=== PATIENT | male | born 1965 ===

== ENCOUNTER 2020-03-29 17:01 | Outpatient (REF) | payer OTHER, SELFPAY ==
[2020-03-29 18:37] LABS: Cholesterol 218 mg/dL; HDL Cholesterol 51 mg/dL; LDL Cholesterol Calculated 146 mg/dl; Triglycerides 108 mg/dL
== END 2020-03-29 17:02 | disposition home or self-care (01) ==
LOC: HO.LAB 17:01
PROVIDERS: PCP Family Medicine; Visit Provider Family Medicine
DX: E78.00 Pure hypercholesterolemia, unspecified (principal)
CPT/HCPCS: 80061

== ENCOUNTER 2020-05-09 07:20 | Day surgery (SDC) | payer OTHER, SELFPAY ==
[2020-05-03 12:24] VITALS: BMI 34.2
--- NOTE | 2020-05-05 15:48 | HO.ANESPROP2 ---
Documented by User: Ai Conleyney 05/05/20 15:50 HPI - Anesthesia Eval Consult details Narrative: 55yo M for Colonoscopy [facility] Past Medical History Medical History Elevated cholesterol Loud snoring Murmur Surgical History Surgical History History of third molar tooth extraction Hx of colonoscopy Social History Social History Smoking Status: Never smoker Use of substances other than those prescribed or required for medical reasons: No Advance Directives: No Advance Directives Information Provided: No Advance Directives on File: No Meds Allergies Allergy/AdvReac Type Severity Reaction Status Date / Time No Known Allergies Allergy Verified 05/09/20 08:06 Exam Exam Date and Time: May 05, 2020 1548 Height,Weight and Vital Signs: Height 5 ft 6 in Weight 96.162 kg Assessment and Plan Assessment Anesthesia Assessment: Chart Reviewed Documented by User: Morro Rudolph MD 05/09/20 08:11 [facility] Past Medical History Medical History Elevated cholesterol Loud snoring Murmur Surgical History Surgical History History of third molar tooth extraction Hx of colonoscopy Social History Social History Smoking Status: Never smoker Use of substances other than those prescribed or required for medical reasons: No Advance Directives: No Advance Directives Information Provided: No Advance Directives on File: No Meds Allergies Allergy/AdvReac Type Severity Reaction Status Date / Time No Known Allergies Allergy Verified 05/09/20 08:06 Exam Airway Mallampati Class: III TM Dist: >3cm Neck ROM: Full Loose/Missing/Broken Teeth: No Heart: rrr, LBBB Lungs: nl Other: ao Assessment and Plan Assessment Anesthesia Assessment: Anesthesia Plan Discussed, PAT Visit and Chart Reviewed (Rhythm strip shows ?new Lbbb, no prior comparison, mets>4, denies CP/SOB, recommend PCP followup with EKG) Final Anesthetic Review NPO: Yes ASA Class: II Final Preanesthetic Review: No Changes in Pt Med Stat, Meds/Allgs Chart Reviewed, Consent Obtained/Reviewed and Anes Risks/Benef Reviewed Patient Risk: Low Procedure Risk: Low Anesthetic Plan Anesthetic Plan: MAC: Disposition: Standard PACU
[2020-05-06 12:09] VITALS: BMI 34.2
[2020-05-09 07:44] VITALS: BMI 34.2
[2020-05-09 07:47] VITALS: BP 137/77; PULSE 66; RESP 16; TEMP 36.5; O2SAT 96
[2020-05-09] MEDS: Lactated Ringers 1,000 ML 100 ML IVCONT (08:00)
--- NOTE | 2020-05-09 08:50 | MHC.SHP ---
Pre-Procedural Eval Section B Chief Complaint: Screening Details of Present Illness: FH of cRC in father 60's Relevant Family History (Specify if Yes): Yes Relevant Social History: None Present Medications: see Short Stay Collaborative assessment Medical History: Significant History (high cholesterol, murmur) History of Previous Operations: No relevant previous surgery Allergies: Allergies Allergy/AdvReac Type Severity Reaction Status Date / Time No Known Allergies Allergy Verified 05/09/20 08:06 Review of Systems Sugical H&P ROS: Negative: Constitution, Cardiovascular, Respiratory, Neurological, Psychiatric, Hem-Onc, Allergic/Immunologic, Gastrointestinal, Genitourinary, Musculoskeletal, Integumentary, Endocrine and Eyes/Ears/Nose/Throat Exam Surgical H&P Exam: Normal: HEENT, Normal: Heart, Normal: Lungs, Normal: Extremities, Normal: Abdomen, Normal: Skin and Normal: Neurological Plan Diagnosis/Plan: Unchanged Patient has been examined and remains a candidate for the planned procedure
--- NOTE | 2020-05-09 08:51 | P.OP_ITS ---
Operative Note Operative Note Date of Service: 05/09/20 Narrative: Operative Information Procedure Description: Colonoscopy COLONOSCOPY Instrument: Olympus variable stiffness pediatric scope 190L Colonoscopy Monitoring: Vital signs and clinical assessment, continuous EKG monitoring, Pulse oximetry, Carbon Dioxide monitoring and blood pressure monitoring were done throughout the procedure. Colon withdrawal time was 10 minutes. Procedure: The patient was placed in the left lateral decubitis position and pre-procedure medications were administered. After a digital rectal examination of the ano-rectum, the video colonoscope was inserted into the rectum and advanced through the colon to the cecum/TI. The colonoscope was slowly withdrawn in a retrograde panoramic fashion and the colon mucosa was carefully examined including a retroflexed view of the rectum. Findings and interventions are described below. Procedure Difficulty: Findings: scattered small diverticula shivam in the sigmoid but noted in right colon and transverse Terminal Ileum-normal Cecum:normal Ascending Colon: normal Transverse Colon -normal Descending Colon:normal Sigmoid Colon: normal Rectum: Retroflexion with small internal hemorrhoids, grade I with skin tags seen Anorectum - normal Colon preparation: [place] Bowel Preparation Scale Right colon; 2 Transverse colon: 3 Left colon; 3 (0 = Unprepared colon segment with mucosa not seen due to solid stool that cannot be cleared. 1 = Portion of mucosa of the colon segment seen, but other areas of the colon segment not well seen due to staining, residual stool and/or opaque liquid. 2 = Minor amount of residual staining, small fragments of stool and/or opaque liquid, but mucosa of colon segment seen well. 3 = Entire mucosa of colon segment seen well with no residual staining, small fragments of stool or opaque liquid) Impression and Post Procedure Diagnosis: diverticular disease internal hemorrhoids Plan: High fiber diet leaflet Avoid straining at stool, epsom salts and sitz bath prn, anusol supps or cream Repeat Colonoscopy in 5 years (due to FH of CRC) or earlier if clinically indicated Above findings were reviewed with the patient and relevant handouts were provided if indicated.
--- NOTE | 2020-05-09 08:51 | PM.OP ---
Brief Operative Note Date of Service: 05/09/20 Post-op diagnosis: same Procedure: see op note Surgeon: Antonette Lakhani MD Anesthesia: MAC Estimated blood loss (mL): 0 Condition: stable Disposition: PACU
[2020-05-09 09:15] VITALS: BP 104/63; PULSE 70; RESP 16; TEMP 36.1; O2SAT 97
[2020-05-09 09:30] VITALS: BP 111/59; PULSE 62; RESP 12; O2SAT 94
[2020-05-09 09:39] VITALS: BP 120/79; PULSE 68; RESP 18; TEMP 36.1; O2SAT 97
--- NOTE | 2020-05-09 10:06 | HO.POSTANES ---
Post Anesthesia Evaluation Post Anesthesia Evaluation Vital Signs: Vital Signs Temp Pulse Resp BP Pulse Ox 05/09/20 09:39 96.9 F 68 18 120/79 97 05/09/20 09:30 62 12 111/59 L 94 05/09/20 09:15 96.9 F 70 16 104/63 97 05/09/20 07:47 97.7 F 66 16 137/77 96 Anesthesia: Monitored Mental Status: Awake Pain Control: Satisfactory Nausea/Vomiting: None Hydration: Adequate Anesthesia-Related Issues: No Anes. Related Issues
== END 2020-05-09 10:15 | disposition home or self-care (01) ==
PROVIDERS: PCP Family Medicine; Visit Provider Internal Medicine Gastroenterology
PROC: 0DJD8ZZ Inspection of Lower Intestinal Tract, Via Natural or Artificial Opening Endoscopic (ICD-10-PCS; CPT 45378; principal; 2020-05-09 08:30)
DX: Z12.11 Encounter for screening for malignant neoplasm of colon (principal); K57.30 Diverticulosis of large intestine without perforation or abscess without bleeding; K64.0 First degree hemorrhoids; Z80.0 Family history of malignant neoplasm of digestive organs
CPT/HCPCS: 45378

== ENCOUNTER → 2020-06-01 15:03 | Outpatient (BNVA) | payer OTHER, SELFPAY | PROVIDERS: PCP Family Medicine; Visit Provider Internal Medicine Gastroenterology | DX: Z76.89 Persons encountering health services in other specified circumstances (principal) ==

== ENCOUNTER → 2020-07-18 08:10 | Outpatient (REF) | payer OTHER, SELFPAY ==
--- NOTE | 2020-07-18 08:14 | CA_ITS ---
Acquisition Time: 2020-07-18 09:31:38 Total Exercise Time: 00:05:48 Test Indications: Abnormal ECG Medications: SEE CHART Protocol: SHANA Max HR: 126 BPM 77% of Pred: 163 BPM Max BP: 164/070 mmHG Max Work Load: 7.0 METS Exercise stress test with exercise 5 min 48 sec of Shana protocol, with report of moderate shortness of breath and a strange feeling in his upper chest and under his tongue, with isolated PVCs and ventricular cuplets, with normotensive response to exercise, with nondiagnostic EKG for ischemia due to suboptimal heart rate, achieving 76% MPHR. In recovery his symptoms resolved. Test reviewed with Dr Quiroz. Message sent to Dr Guzman with results and recommendation for pharm nuclear stress test. Referred By: George Guzman Overread By: MACK PAGE
[2020-07-18 10:06] LABS: Cholesterol 144 mg/dL; HDL Cholesterol 48 mg/dL; LDL Cholesterol Calculated 82 mg/dl; Triglycerides 74 mg/dL
== END ==
LOC: HO.CARD 08:10
PROVIDERS: PCP Family Medicine; Visit Provider Family Medicine
DX: R03.0 Elevated blood-pressure reading, without diagnosis of hypertension (principal); R94.31 Abnormal electrocardiogram [ECG] [EKG]; E78.00 Pure hypercholesterolemia, unspecified
CPT/HCPCS: 36415; 80061; 93017

== ENCOUNTER → 2020-07-28 13:40 | Outpatient (BNVA) | payer OTHER, SELFPAY | PROVIDERS: PCP Family Medicine; Visit Provider Internal Medicine ==

== ENCOUNTER → 2020-09-06 08:31 | Outpatient (REF) | payer OTHER, SELFPAY ==
--- NOTE | ~2020-09-06 | NM_ITS ---
Myocardial perfusion study Indication: Abnormal EKG to evaluate for myocardial ischemia Technique: The patient was brought in for a Lexiscan perfusion study on 09/06/2020. Patient performed low-level exercise and was injected 0.4 mg of Lexiscan intravenously. Within a minute of injection, 35 mCi of sestamibi was given intravenously. Images were obtained using the SPECT gamma camera interlaced with the gating device. Images were obtained in supine position. Resting perfusion study was performed on 09/07/2020. Patient was administered 35 mCi of sestamibi intravenously at rest. Images were then obtained in supine position. Images obtained with and without CT attenuation. Total DLP 88 mGy-cm. Images were processed with the software and compared side to side in short axis, horizontal long axis and vertical long axis views. Findings: The stress perfusion study showed non attenuated images show normal uptake of tracer in all segments of LV myocardium. Attenuation corrected images show mildly reduced uptake in the apex of the LV myocardium. The gated study shows normal LV systolic function with calculated LVEF of 71%. LV cavity is normal in size. The gated study shows normal systolic wall thickening and contraction of segments. Resting study shows no change in perfusion in compared to stress perfusion study. Gating at rest reveals normal cyst colic wall motion with ejection fraction at 59%. The findings are consistent with normal perfusion. NM/NM cardiolite stress test Impression: 1. Myocardial perfusion imaging study shows normal myocardial perfusion 2. Gated LVEF is 71% 3. Transient ischemic dilatation not present EKG is nondiagnostic for ischemia
--- NOTE | 2020-09-06 08:34 | CA_ITS ---
Acquisition Time: 2020-09-06 09:24:29 Total Exercise Time: 00:02:00 Test Indications: Abn.Results of other cardiovascu Medications: Protocol: LEXISCAN Max HR: 104 BPM 63% of Pred: 163 BPM Max BP: 136/078 mmHG Max Work Load: 1.6 METS Pharmacological stress test using Lexiscan while walking for 2 minutes at 1mph. Pt tolerated well, denies any anginal sx. EKG with incomplete RBBB, no arrhythmias. Non-diagnostic for ischemia. Nuclear images to follow. Normotensive response to test. Test reviewed with Dr. Olmstead. Referred By: José Luis Olmstead Overread By: Jerri Puente NP
--- NOTE | 2020-09-06 08:34 | CA_ITS ---
Transthoracic Echocardiogram Patient (Last, First, Middle): Kaushik Luis, Gender: Male Date of : 1965 Age: 55 Procedure Date: 09/06/2020 Procedure Type: Transthoracic Echocardiogram Location: OP Height: 167.64 cm Weight: 95.26 kg BSA: 2.04 m2 Heart Rate: bpm BP: 122 / 78 mmHg Welt Slasher: CAROL Referring MD: José Luis Olmstead MD Symptoms: R06.02 - Shortness of breath Study Quality: Fair ECG Rhythm: Sinus Conclusions: - The left ventricular systolic function is normal. The visually estimated ejection fraction is between 60-65%. - No obvious valvular pathology seen on this study. Findings Left Ventricle Normal left ventricular cavity size. There is mildly increased left ventricular wall thickness. The left ventricular systolic function is normal. The visually estimated ejection fraction is between 60-65%. There is no evidence of regional wall motion abnormalities. Diastolic function is normal for age. Right Ventricle Normal right ventricular cavity size and systolic function. Atria The left atrium is normal in size. The right atrium is normal in size. Aortic Valve There is a normal trileaflet aortic valve. There is no aortic valve stenosis. There is no aortic valve regurgitation. Mitral Valve The mitral valve appears normal. There is trace mitral valve regurgitation. There is no mitral valve stenosis. Pulmonic Valve The pulmonic valve was not well visualized. There is trace pulmonic valve regurgitation. Tricuspid Valve Normal tricuspid valve structure. There is trace tricuspid valve regurgitation. The pulmonary artery systolic pressure is normal. Great Vessels The aortic annulus, sinuses of valsalva, asc aorta, and aortic arch are normal in size. Venous The inferior vena cava is normal in size and collapses greater than 50% with inspiration. Pericardium/Pleural There is no evidence of pericardial effusion. Prior Study Comparison No prior study available for comparison. Recommendations, Care & Conclusions No obvious valvular pathology seen on this study. Measurements 2D Linear Measurements IVSd: 1.06 0.6-0.9/0.6-1.0 cm LVIDd: 4.57 3.9-5.3/4.2-5.9 cm LVIDd Index: 2.24 2.4-3.2/2.2-3.1 cm/m2 LVIDs: 3.16 2.0-3.6 cm LVPWd: 1.02 0.7-1.1 cm Ao Root: 2.60 2.1-3.5 cm LA Diam: 3.20 2.7-3.8/3.0-4.0 cm LAIDs Index: 1.57 1.5-2.3 cm/m2 LV Mass: 206.58 67-162/88-224 g LV Mass Index: 101.27 43-95/49-115 g/m2 LVOT Diam: 2.10 3.0+(-)1.3 cm 2D Systolic Function EF 4C: 57.60 >55% EF 2C: 61.50 >55% EF BiP: 60.70 >55% Mitral Valve MV Pk E: 0.57 MV PK A: 0.49 MV Decel Time: 237.00 E/A: 1.20 E'Lateral: 13.10 E'Medial: 9.57 E/E' Med: 5.90 E/E' Lat: 4.30 PHT: 70.00 MVA PHT: 3.14 Decel [place]: 2.40 Aortic Valve AoV Pk Armando: 1.48 AoV Pk Grad: 9.00 LVOT LVOT Pk Armando: 1.20 LVOT Mn Armando: 0.77 LVOT VTI: 0.26 LVOT Pk Grad: 6.00 LVOT Mn Grad: 3.00 LVOT Diam: 2.10 LVOT Area: 3.46 Diastolic Function MV Pk E: 0.57 MV Pk A: 0.49 E/A: 1.20 E'Medial: 9.57 E/E' Med: 5.90 E' Laterial: 13.10 E/E' Lat: 4.30 Tricuspid Valve TR Pk Armando: 2.34 TR Pk Grad: 22.00 RA Press: 3.00 RVSP: 25.00 Great Vessels Aorta Ao Root-2D: 2.60 2.0-3.7 cm Ao Asc: 3.50 2.1-3.4 cm Ao Arch: 2.90 Updated in Other Vendor System with Status of Final José Luis Olmstead MD electronically signed on 09/06/2020 12:42:17 PM with status of Final
== END ==
LOC: HO.CARD 08:31
PROVIDERS: Visit Provider Internal Medicine
DX: R06.02 Shortness of breath (principal); I49.9 Cardiac arrhythmia, unspecified; R94.39 Abnormal result of other cardiovascular function study; R94.31 Abnormal electrocardiogram [ECG] [EKG]; G47.33 Obstructive sleep apnea (adult) (pediatric)
CPT/HCPCS: 78452; 93017; 93306; A9500; J0280; J2785

== ENCOUNTER → 2020-09-06 11:18 | Outpatient (REF) | payer OTHER, SELFPAY | LOC: HO.SL 11:18 | PROVIDERS: PCP Family Medicine; Visit Provider Internal Medicine | DX: G47.33 Obstructive sleep apnea (adult) (pediatric) (principal) | CPT/HCPCS: 95806 ==

== ENCOUNTER → 2020-09-26 14:44 | Outpatient (BNVA) | payer OTHER, SELFPAY | PROVIDERS: PCP Family Medicine; Visit Provider Internal Medicine ==

== ENCOUNTER → 2020-11-02 09:47 | Outpatient (BNVA) | payer OTHER, SELFPAY | PROVIDERS: PCP Family Medicine; Visit Provider Internal Medicine ==

== ENCOUNTER → 2020-12-13 15:34 | Outpatient (BNVA) | payer OTHER, SELFPAY | PROVIDERS: PCP Family Medicine; Visit Provider Internal Medicine ==

== ENCOUNTER → 2021-03-22 15:38 | Outpatient (BNVA) | payer OTHER, SELFPAY | PROVIDERS: PCP Family Medicine; Visit Provider Internal Medicine ==

== ENCOUNTER 2021-03-31 08:18 | Emergency (ER) | payer OTHER, SELFPAY ==
--- NOTE | ~2021-03-31 | XR_ITS ---
EXAMINATION: XR CHEST CLINICAL INFORMATION: Syncope. COMPARISON: None TECHNIQUE: Frontal view of the chest was obtained. FINDINGS: The lungs are clear. The cardiomediastinal silhouette is normal in size. There is no pleural effusion or pneumothorax. No acute osseous abnormality. XR/XR chest 1V IMPRESSION: No acute cardiopulmonary findings.
--- NOTE | ~2021-03-31 | CT_ITS ---
EXAMINATION: CT BRAIN AND CT CERVICAL SPINE WITHOUT CONTRAST. CLINICAL INFORMATION: Dizziness and syncope x 3 weeks. COMPARISON: None TECHNIQUE: 5 mm thin axial and reformatted 2 mm thin sagittal coronal images of brain were obtained without contrast. Axial 3 mm thin and reformatted 2 mm thin sagittal coronal images of cervical spine were obtained without contrast. DLP 1455 FINDINGS: BRAIN: There is no acute intra-axial, extra-axial bleed, masses, collection or midline shift. No acute infarction in evolution. There is no edema. The lateral ventricles are symmetrical in size and configuration without enlargement. Bone windows reveal no calvarial abnormality. The paranasal sinuses and mastoid air cells are well-aerated. CERVICAL SPINE: There is normal cervical lordosis. The vertebral heights, alignment and disc heights are normal. No visible acute fracture, dislocation or lytic process seen. The craniovertebral junction and the C1-C2 alignment is normal. The prevertebral and paravertebral soft tissues are normal. The lung apices are clear. CT/CT cervical spine wo con IMPRESSION: Unremarkable CT brain exam. Unremarkable CT cervical spine without contrast.
--- NOTE | ~2021-03-31 | CT_ITS ---
EXAMINATION: CT BRAIN AND CT CERVICAL SPINE WITHOUT CONTRAST. CLINICAL INFORMATION: Dizziness and syncope x 3 weeks. COMPARISON: None TECHNIQUE: 5 mm thin axial and reformatted 2 mm thin sagittal coronal images of brain were obtained without contrast. Axial 3 mm thin and reformatted 2 mm thin sagittal coronal images of cervical spine were obtained without contrast. DLP 1455 FINDINGS: BRAIN: There is no acute intra-axial, extra-axial bleed, masses, collection or midline shift. No acute infarction in evolution. There is no edema. The lateral ventricles are symmetrical in size and configuration without enlargement. Bone windows reveal no calvarial abnormality. The paranasal sinuses and mastoid air cells are well-aerated. CERVICAL SPINE: There is normal cervical lordosis. The vertebral heights, alignment and disc heights are normal. No visible acute fracture, dislocation or lytic process seen. The craniovertebral junction and the C1-C2 alignment is normal. The prevertebral and paravertebral soft tissues are normal. The lung apices are clear. CT/CT head/brain wo con IMPRESSION: Unremarkable CT brain exam. Unremarkable CT cervical spine without contrast.
--- NOTE | 2021-03-31 08:27 | ECG_ITS ---
Test Reason : SYNCOPE Blood Pressure : / mmHG Vent. Rate : 067 BPM Atrial Rate : 067 BPM P-R Int : 204 ms QRS Dur : 118 ms QT Int : 382 ms P-R-T Axes : 034 -49 040 degrees QTc Int : 403 ms Normal sinus rhythm with sinus arrhythmia Left anterior fascicular block RSR' or QR pattern in V1 suggests right ventricular conduction delay Intra-ventricular conduction delay Abnormal ECG No previous ECGs available Referred By: Generic ED Physician Electronically Signed By:HOLDEN MCDONALD MD
[2021-03-31 09:12] VITALS: BP 140/78; PULSE 63; RESP 20; TEMP 36.5; O2SAT 98; BMI 35.5
[2021-03-31 09:17] LABS: MANUAL DIFF FLAG NO
[2021-03-31 09:18] LABS: Basophils Percent Auto 0.3 % (0-2); Eosinophils Percent Auto 0.4 % (0-4); Hematocrit 47.1 % (42-52); Hemoglobin 15.6 g/dl (14.0-18.0); Imm Gran Abs Auto 0.03 X10*3/uL (0.00-0.03); Imm Gran Pct Auto 0.4 % (0.0-0.4); Lymphocytes Absolute Auto 1.7 X10*3/uL (1.2-4.9); Lymphocytes Percent Auto 23.7 % (20-40); Mean Corpuscular HGB Conc 33.1 g/dl (31.0-36.0); Mean Corpuscular Hemoglobin 30.7 pg (27.0-33.0); Mean Corpuscular Volume 92.7 fL (80-98); Mean Platelet Volume 9.3 fL (9.4-12.4); Monocytes Absolute Auto 0.6 X10*3/uL (0.1-1.2); Monocytes Percent Auto 8.6 % (2-11); Neutrophils Absolute Auto 4.9 X10*3/uL (2.0-8.3); Neutrophils Percent Auto 66.6 % (45-73); Platelet Count 320 X10*3/uL (160-400); Red Blood Count 5.08 X10*6/uL (4.60-5.80); Red Cell Distribution Width 13.2 % (11.0-16.0); White Blood Count 7.3 X10*3/uL (4.8-10.8)
[2021-03-31 09:33] LABS: Anion Gap 10 (12-20); Blood Urea Nitrogen 21 mg/dL (9-16); Calcium 10.3 mg/dL (8.4-10.2); Carbon Dioxide 29 mmol/L (22-29); Chloride 107 mmol/L (96-108); Creatinine Clr Calc Pharmacy 77.4; Estimated Glomerular Filt Rate > 60; Glucose Random 97 mg/dL (60-115); Potassium 5.2 mmol/L (3.3-5.1); Sodium 141 mmol/L (135-145)
--- NOTE | 2021-03-31 09:34 | ED_ITS ---
HPI - Syncope General Chief Complaint: Syncope Stated Complaint: passed out Time Seen by Provider: 03/31/21 08:56 Source: patient Mode of arrival: ambulatory Limitations: no limitations History of Present Illness HPI narrative: 56 y/o male with history of obesity, hx ROSALINDA on CPAP, HTN, HLD who presents to the ER with 3 separate episodes of lightheadedness and passing out this morning, all within 15-20 minutes of one another. Patient reports at 06:30 this morning about 1 hour after waking up he was brushing his teeth when all the sudden he started to feel lightheaded and unwell. He slowly lowered himself to the ground and next thing he knows he woke up on the bathroom floor. He felt better when he woke up see went to the kitchen and shortly after this same episode happened again, he felt lightheaded lowered himself to the ground and he reports next things he remembers is waking up on the kitchen floor. A 3rd episode happened in the bedroom. All 3 episodes he feels like he was lightheaded he lowered himself to the ground and did not fall. He did not hit his head. He does not know how long he lost consciousness for but thinks it was brief. He has no associated shortness of breath or chest pain. He feels that his baseline now. He has no dizziness. This has never happened to him before. MD complaint: loss of consciousness and felt faint Onset (ago): hour(s) (4) -: second(s) Prodromal symptoms: lightheaded Witnessed: No Injuries sustained associated with event: none Current symptoms: back to baseline Treatments prior to arrival: none Related Data Home Medications Medication Instructions Recorded Confirmed naproxen sodium 220 mg tablet 220 mg PO Q12H PRN 03/31/21 03/31/21 (Aleve) Previous Rx's Medication Instructions Recorded atorvastatin 20 mg tablet 20 mg PO DAILY 90 Days #90 tab 04/14/20 Allergies Allergy/AdvReac Type Severity Reaction Status Date / Time No Known Allergies Allergy Verified 03/22/21 15:48 Review of Systems Review of Systems: Constitutional: No Fever, No Chills ENT/Mouth: No sore throat, No Rhinorrhea, No Swallowing Difficulty Eyes: No Eye Pain, No Swelling, No Redness, No vision changes Cardiovascular: No Chest Pain, No SOB, No Orthopnea, No Edema Respiratory: No Cough, No Sputum, No Wheezing, No dyspnea Gastrointestinal: + Nausea (transient, now gone), No Vomiting, No Diarrhea, No abdominal Pain Genitourinary: No Dysuria, No Urinary Frequency, No Hematuria Musculoskeletal: No joint pain, No Myalgias Skin: No Skin Lesions, No rash Neuro: No Weakness, No Numbness, + Dizziness, No Headache Psych:+ Anxiety/Panic, No Depression Heme/Lymph: No Bruising, No Lymphadenopathy PMFSH Past Medical History Medical History Elevated cholesterol Loud snoring Murmur Obesity (BMI 30-39.9) ROSALINDA (obstructive sleep apnea) Surgical History History of third molar tooth extraction Hx of colonoscopy Family History Family History Father No problems noted. Mother No problems noted. Brother No problems noted. Brother No problems noted. Daughter No problems noted. Sister No problems noted. Sister No problems noted. Sister No problems noted. Social History Social History Alcohol intake: current Alcohol intake frequency: holidays/special occasions only Advance Directives: No Advance Directives Information Provided: No Advance Directives on File: No Physical Exam Vital Signs: Vital Signs: Last Vital Signs Temp 98.8 F 03/31/21 10:06 Pulse 62 03/31/21 10:06 Resp 16 03/31/21 10:06 BP 139/83 03/31/21 10:06 Pulse Ox 99 03/31/21 10:06 Body Mass Index 35.5 Appearance: Alert. Oriented X3. No acute distress. Eyes: Pupils equal, round and reactive to light. EOMI no nystagmus ENT: Pharynx normal. Neck: Normal inspection. Neck supple. No cervical spinal tenderness. CVS: Normal heart rate and rhythm. Pulses normal. Respiratory: No respiratory distress. Breath sounds normal. Abdomen: Soft and nontender. +BS x4 Skin: Skin warm and dry. Normal skin color. Normal skin turgor. No rashes. Extremities: No lower extremity edema. Atraumatic x4 Neuro: Oriented X 3. No motor deficit. No sensory deficit. Ambulates with steady gait, non-focal. Course Course Course Narrative: 56-year-old male presents to the ER with 3 episodes of feeling lightheaded and dizzy this morning in which he lowered himself to the ground and briefly lost consciousness during all 3 episodes. He is hemodynamically stable on arrival with a nonfocal neuro exam. He reports no injuries, no headache, chest pain, shortness of breath. It does not sound like he was postictal or had any urinary incontinence or tongue biting, doubt seizures. Will get EKG, basic lab workup, CT head. He had an echocardiogram done an August of 2020 which was unremarkable with EF 60-65% normal diastolic function and no valvular pathology. Reevaluation(s) Reevaluation #1: Orthostatic vital signs are negative. Labs show mild elevation in potassium and calcium and mildly elevated BUN consistent with mild dehydration. IV fluids were ordered. CT head is still pending. Reevaluation #2: CT head is unremarkable. Troponin mildly elevated at 7 will get repeat in addition will get D-dimer to rule out PE given his recurrent syncope. This is less likely given he has no shortness of breath or chest pain and he is not tachycardic. Reevaluation #3: D-dimer is negative troponin increased slightly to 9 but is not clinically significant for cardiac ischemia. Given his recurrent syncope this morning and risk factors will plan on admission to the hospital for observation. Case was discussed with Dr. Younger who agrees with admission for further monitoring and workup. Patient agreeable to admission and updated on plan of care. MDM - Syncope Differential Diagnosis Differential diagnosis: Likely syncope due to orthostatic hypotension, vasovagal syncope, complete atrioventricular block, subarachnoid hemorrhage, pulmonary embolism and dehydration Medical Records Attestation: I reviewed the patient's medical records. Lab Data Attestation: I reviewed the patient's lab results. Result diagrams: 03/31/21 08:55 03/31/21 08:55 Labs: Lab Results 03/31/21 03/31/21 03/31/21 Range/Units 08:55 08:55 08:55 WBC 7.3 (4.8-10.8) X10*3/uL RBC 5.08 (4.60-5.80) X10*6/uL Hgb 15.6 (14.0-18.0) g/dl Hct 47.1 (42-52) % MCV 92.7 (80-98) fL MCH 30.7 (27.0-33.0) pg MCHC 33.1 (31.0-36.0) g/dl RDW 13.2 (11.0-16.0) % Plt Count 320 (160-400) X10*3/uL MPV 9.3 L (9.4-12.4) fL Immature Gran % (Auto) 0.4 (0.0-0.4) % Neut % (Auto) 66.6 (45-73) % Lymph % (Auto) 23.7 (20-40) % [place] % (Auto) 8.6 (2-11) % Eos % (Auto) 0.4 (0-4) % Baso % (Auto) 0.3 (0-2) % Lymph # (Auto) 1.7 (1.2-4.9) X10*3/uL [place] # (Auto) 0.6 (0.1-1.2) X10*3/uL Eos # (Auto) 0.0 (0.0-0.4) X10*3/uL Baso # (Auto) 0.0 (0.0-0.2) X10*3/uL Abs Immat Gran (auto) 0.03 (0.00-0.03) X10*3/uL Absolute Neuts (auto) 4.9 (2.0-8.3) X10*3/uL Absolute Nucleated RBC 0.000 (0.0-0.012) X10*3/uL Nucleated RBC % (auto) 0.0 (0.0-0.2) /100WBC D-Dimer NG/ML Sodium 141 (135-145) mmol/L Potassium 5.2 H (3.3-5.1) mmol/L Chloride 107 (96-108) mmol/L Carbon Dioxide 29 (22-29) mmol/L Anion Gap 10 L (12-20) BUN 21 H (9-16) mg/dL Creatinine 1.15 (0.5-1.4) mg/dL Estim Creat Clear Calc 77.4 Estimated GFR > 60 Random Glucose 97 (60-115) mg/dL Calcium 10.3 H (8.4-10.2) mg/dL Troponin I High Sens 7.8 (<3.5-35.0) ng/L 03/31/21 03/31/21 Range/Units 14:11 14:11 WBC (4.8-10.8) X10*3/uL RBC (4.60-5.80) X10*6/uL Hgb (14.0-18.0) g/dl Hct (42-52) % MCV (80-98) fL MCH (27.0-33.0) pg MCHC (31.0-36.0) g/dl RDW (11.0-16.0) % Plt Count (160-400) X10*3/uL MPV (9.4-12.4) fL Immature Gran % (Auto) (0.0-0.4) % Neut % (Auto) (45-73) % Lymph % (Auto) (20-40) % [place] % (Auto) (2-11) % Eos % (Auto) (0-4) % Baso % (Auto) (0-2) % Lymph # (Auto) (1.2-4.9) X10*3/uL [place] # (Auto) (0.1-1.2) X10*3/uL Eos # (Auto) (0.0-0.4) X10*3/uL Baso # (Auto) (0.0-0.2) X10*3/uL Abs Immat Gran (auto) (0.00-0.03) X10*3/uL Absolute Neuts (auto) (2.0-8.3) X10*3/uL Absolute Nucleated RBC (0.0-0.012) X10*3/uL Nucleated RBC % (auto) (0.0-0.2) /100WBC D-Dimer < 200 NG/ML Sodium (135-145) mmol/L Potassium (3.3-5.1) mmol/L Chloride (96-108) mmol/L Carbon Dioxide (22-29) mmol/L Anion Gap (12-20) BUN (9-16) mg/dL Creatinine (0.5-1.4) mg/dL Estim Creat Clear Calc Estimated GFR Random Glucose (60-115) mg/dL Calcium (8.4-10.2) mg/dL Troponin I High Sens 9.1 (<3.5-35.0) ng/L ECG Data Attestation: I personally reviewed and interpreted this ECG as follows: ECG interpretation date: 03/31/21 ECG interpretation time: 11:44 Prior ECG tracings: available for review Interpretation: normal sinus rhythm with sinus arrythmia, HR 67 bpm, prolonged VA interval 203 ms, prolonged QRS 118 ms, Q-waves present in inferior leads - all findings were present on old EKG from Jul 2020 Critical Care Time Critical Care Time Critical Care Time: Yes Total Critical Care Time: 38 Attestation: I have personally provided critical care time exclusive of time spent on separately billable procedures. Time includes review of lab data, radiology results, discussion with consultants, and monitoring for potential decompensation. Intervention performed as documented. Discharge Plan Discharge Clinical Impression: Recurrent syncope Patient Disposition: Admitted As Inpatient Prescriptions: No Action naproxen sodium [Aleve] 220 mg Tablet 220 mg PO Q12H PRN (Reason: Pain) RF: 0 atorvastatin 20 mg tablet 20 mg PO DAILY 90 Days Qty: 90 RF: 3
[2021-03-31 09:39] LABS: Troponin-I High Sensitivity 7.8 ng/L (<3.5-35.0)
[2021-03-31 10:03] VITALS: BP 127/85; PULSE 60; PULSE 67
[2021-03-31 10:05] VITALS: BP 141/86; PULSE 58
[2021-03-31 10:06] VITALS: BP 139/83; PULSE 62; RESP 16; TEMP 37.1; O2SAT 99
[2021-03-31] MEDS: 0.9 % Sodium Chloride 1,000 ML 999 ML IVCONT (10:31)
--- NOTE | 2021-03-31 11:36 | PHA.MEDREC ---
Pharmacy Consult ? Medication Reconciliation Pharmacy has completed the medication reconciliation. Patient reports that he has a generic Viagra however he does know the name. There are no PDE-5 inhibitors on his claim history. Kyleigh Wing, BetzyD
[2021-03-31 14:27] LABS: D Dimer < 200 NG/ML
[2021-03-31 14:41] LABS: Troponin-I High Sensitivity 9.1 ng/L (<3.5-35.0)
--- NOTE | 2021-03-31 16:09 | PC.NURSE ---
Pt declining Calderon covid swab test. Pt states that he doesn't agree with those nose swabs, they have chemicals that shouldn't go in people's noses . Pt informed that the test is a foam swab that does not go far in the nostril and test was ordered as part of admission protocol. Pt stated do you know what they put on that foam, it contains the same chemical as antifreeze, it's dry until it goes in your nose .
== END 2021-03-31 17:32 | disposition left against medical advice (07) ==
PROVIDERS: Physician Assistant; Emergency Provider Emergency Medicine; PCP Family Medicine
DX: R55 Syncope and collapse (principal); R42 Dizziness and giddiness; R51.9 Headache, unspecified; M54.2 Cervicalgia; I10 Essential (primary) hypertension; Z79.899 Other long term (current) drug therapy
CPT/HCPCS: 36415; 70450; 71045; 72125; 80048; 84484; 85025; 85379; 93005; 96360; 99284; 99291

== ENCOUNTER 2021-06-24 09:46 | Outpatient (REF) | payer OTHER, SELFPAY ==
[2021-06-24 11:31] LABS: Anion Gap 10 (12-20); Blood Urea Nitrogen 19 mg/dL (9-16); Calcium 9.8 mg/dL (8.4-10.2); Carbon Dioxide 30 mmol/L (22-29); Chloride 107 mmol/L (96-108); Cholesterol 140 mg/dL; Estimated Glomerular Filt Rate > 60; Glucose Random 78 mg/dL (60-115); HDL Cholesterol 42 mg/dL; LDL Cholesterol Calculated 76 mg/dl; Potassium 4.6 mmol/L (3.3-5.1); Sodium 142 mmol/L (135-145); Triglycerides 111 mg/dL
[2021-06-24 11:53] LABS: Prostate Specific Antigen Scr 0.91 ng/mL (<0.05-4.0); TSH reflex Free T4 0.94 uIU/mL (0.32-4.0)
== END 2021-06-24 09:47 | disposition home or self-care (01) ==
LOC: HO.LAB 09:46
PROVIDERS: Visit Provider Family Medicine
DX: Z00.00 Encounter for general adult medical examination without abnormal findings (principal); E78.00 Pure hypercholesterolemia, unspecified; Z12.5 Encounter for screening for malignant neoplasm of prostate
CPT/HCPCS: 36415; 80048; 80061; 84153; 84443

== ENCOUNTER 2021-07-13 12:35 | Outpatient (REF) | payer OTHER, SELFPAY ==
--- NOTE | 2021-07-13 12:40 | HM_ITS ---
Total monitoring time 5 days and 2 hours. Underlying rhythm is sinus. Minimum heart rate 38/Min. Maximum 139/Min. Average 70/Min. No atrial fibrillation or flutter or AV blocks or pauses. Rare supraventricular ectopy with minimal burden. Extremely rare ventricular ectopy. No patient events. MTDD
--- NOTE | 2021-07-13 12:42 | EEG_ITS ---
Waking background activity consists of an 11 hertz posterior symmetrical alpha intermixed with low voltage fast frequencies anteriorly. Drowsiness is characterized by diffuse theta slowing. During sleep, symmetrical frontal central sleep spindles and vertex sharp transients developed over both hemispheres. No focal, lateralizing, or paroxysmal discharges seen. Arousals are frequent and unremarkable. The patient remains asymptomatic. IMPRESSION: This 24-hour ambulatory EEG is within normal limits. MD EMIL Workman/PARISH / [id number]
== END 2021-07-13 12:36 | disposition home or self-care (01) ==
LOC: HO.NEURO 12:35
PROVIDERS: Visit Provider Psychiatry & Neurology Neurology
DX: R55 Syncope and collapse (principal)
CPT/HCPCS: 93242; 95708; 95957

== ENCOUNTER 2022-06-13 14:21 | Observation (INO) | payer OTHER, SELFPAY ==
[2022-06-13] VITALS (7 sets, daily range): BP systolic 111–178; BP diastolic 65–87; PULSE 65–80; RESP 16; TEMP 36.3–36.7; O2SAT 95–98; BMI 34.7
--- NOTE | ~2022-06-13 | XR_ITS ---
EXAMINATION: XR CHEST CLINICAL INFORMATION: Shortness of breath COMPARISON: Chest x-ray 03/31/2021 TECHNIQUE: Frontal view of the chest was obtained. FINDINGS: The lungs are clear. No airspace consolidation, pleural effusion, or pneumothorax. The cardiomediastinal silhouette is within normal limits. No acute osseous injury. XR/XR chest 1V IMPRESSION: No acute pulmonary process.
--- NOTE | ~2022-06-13 | MR_ITS ---
EXAMINATION: MR BRAIN WITHOUT AND WITH CONTRAST CLINICAL INFORMATION: Syncope and dizziness. COMPARISON: CT angiogram of the head 06/13/2022. TECHNIQUE: Multiplanar MR imaging of the brain was performed without and with contrast. Total of 10 mL Gadavist was utilized for this examination. FINDINGS: Dedicated coronal oblique imaging through the temporal lobes reveals symmetric size, signal intensity, and morphological appearance of the hippocampal formations. No evidence of mesial temporal sclerosis. Scattered nonspecific foci of T2 FLAIR signal hyperintensity visualized within the periventricular white matter. No acute territorial infarct. No pathological magnetic susceptibility artifact. Intracranial vascular flow voids are maintained. Postcontrast images reveal no abnormal intracranial mass or enhancement. There is no intracranial mass effect midline shift. No abnormal extra-axial collection. Lateral and third ventricles are normal. No hydrocephalus. Midline structures including the cervicomedullary junction are normal. No acute bone marrow signal changes. There is no mastoid middle ear effusion. No active paranasal sinus disease. Globes and orbits are symmetric. MR/MR head/brain wo/w con IMPRESSION: There are scattered chronic small vessel ischemic changes within the periventricular white matter. Otherwise unremarkable examination. No evidence of acute territorial infarct or hemorrhage. No abnormal intracranial mass or enhancement.
--- NOTE | ~2022-06-13 | CT_ITS ---
EXAMINATION: CT HEAD WITHOUT CONTRAST CLINICAL INFORMATION: Dizziness COMPARISON: Head CT 03/31/2021 TECHNIQUE: Imaging was performed from the skull base to vertex without intravenous administration of contrast. This CT examination was performed using dose optimization techniques as appropriate, variously including the following: *Automated exposure control *Adjustment of mA and/or kV according to patient size (this includes techniques or standardized protocols for targeted exams where dose is matched to indication/reason for exam; i.e. extremities or head) *Use of iterative reconstruction technique Total exam dose length product: 725 mGy-cm FINDINGS: No intra or extra-axial fluid collection, hemorrhage, or mass. No ventriculomegaly. No midline shift or herniation. Basal cisterns are patent. Fang-white matter differentiation is maintained. No territorial encephalomalacia. No significant volume loss. There is no abnormal attenuation within the brain parenchyma. No calvarial fracture or soft tissue abnormality. The mastoid air cells and visualized portions of the paranasal sinuses are well aerated. CT/CT head/brain wo IV con IMPRESSION: 1. No acute intracranial pathology.
--- NOTE | ~2022-06-13 | CT_ITS ---
EXAMINATION: CT ANGIOGRAM HEAD CT ANGIOGRAM NECK CLINICAL INFORMATION: Syncope. Dizziness. COMPARISON: CT head from 06/05/2022. TECHNIQUE: Initial noncontrast marking stitcher imaging of the head and neck was performed. Comparison is made with noncontrast head CT from earlier today. Test bolus sequences followed by intravenous administration 70 mL of Omnipaque 350. Helical imaging was performed in the axial plane from the aortic arch to the skull vertex. Delayed postcontrast imaging of the head was also performed. The data was processed at the manufacturing technologist's workstation for generation of MIP sequences. Angled MIPs and volume rendered reformatted images were also generated at an offline 3D workstation. Stenoses are assessed in accordance with NASCET criteria unless otherwise indicated. This CT examination was performed using dose optimization techniques as appropriate, variously including the following: *Automated exposure control. *Adjustment of mA and/or kV according to patient size (this includes techniques or standardized protocols for targeted exams where dose is matched to indication/reason for exam; i.e. extremities or head). *Use of iterative reconstruction technique. DLP: 1544 mGy-cm FINDINGS: CT Head: There is no evidence of acute intracranial hemorrhage or edematous territorial infarction. A few foci of hypoattenuation in the periventricular and deep white matter are consistent with mild microangiopathy. Fang-white matter differentiation is preserved. Proportional prominence of the ventricles and sulcal spaces. No evidence for obstructive hydrocephalus. No abnormal mass effect or midline shift. No extra-axial fluid collections. No pathologic intra-axial enhancement or regional oligemia. No acute soft tissue or osseous abnormalities. Mild mucosal thickening of the paranasal sinuses. Mild leftward nasal septal deviation with spurring. The mastoid air cells and middle ear cavities are clear. Multifocal odontogenic enamel erosions. CT Neck: The thyroid gland and remaining cervical soft tissues are within normal limits. Mild multilevel degenerative spondylosis arthropathy of the cervical spine. CT Upper Chest: The visualized lung apices and upper mediastinum are within normal limits. Neck CTA: Aortic Arch: Normal contour and caliber. Two vessel branching pattern of the arch with left common carotid artery arising from the brachiocephalic trunk. Great Vessel Origins: No significant stenosis of the branch origins. Right Common Carotid Artery: No focal stenosis or occlusion. Cervical Right Internal Carotid Artery: Calcific atherosclerotic disease of the carotid bulb and proximal internal carotid artery causing less than 50% stenosis. Left Common Carotid Artery: No focal stenosis or occlusion. Cervical Left Internal Carotid Artery: Calcific atherosclerotic disease of the carotid bulb and proximal internal carotid artery causing less than 50% stenosis. Cervical Right Vertebral Artery: Co-dominant. No focal stenosis or occlusion. Cervical Left Vertebral Artery: Co-dominant. No focal stenosis or occlusion. Brain CTA: Intracranial Internal Carotid Arteries: Mild calcific atherosclerotic disease of the intracranial internal carotid arteries without occlusion or flow-limiting stenosis. Right Anterior Cerebral Artery: Normal A1 segment. Normal opacification of the distal [place] segments. Left Anterior Cerebral Artery: Normal A1 segment. Normal opacification of the distal [place] segments. Anterior Communicating Artery: Normal. Right Middle Cerebral Artery: Normal M1 segment of the MCA without focal stenosis or occlusion. Normal arborization of the distal segments. Left Middle Cerebral Artery: Normal M1 segment of the MCA without focal stenosis or occlusion. Normal arborization of the distal segments. Right Vertebral Artery: Normal V4 segment. Normal opacification of the proximal segments of the posterior inferior cerebellar artery. Left Vertebral Artery: Normal V4 segment. Normal opacification of the proximal segments of the posterior inferior cerebellar artery. Basilar Artery: Normal without focal stenosis or occlusion. Normal appearance of the proximal superior cerebellar arteries. Right Posterior Cerebral Artery: Normal P1 segment. Normal opacification of the distal BIOGEOGRAPHER segments. Left Posterior Cerebral Artery: Normal P1 segment. Normal opacification of the distal BIOGEOGRAPHER segments. Normal opacification of the superior sagittal, straight, transverse, and sigmoid sinuses. CT/CT angio head neck IMPRESSION: 1. No evidence of acute intracranial hemorrhage or edematous territorial infarction. 2. Mild underlying microangiopathy and generalized cerebral volume loss. 3. CTA of the head and neck without proximal occlusion or flow-limiting stenosis.
--- NOTE | 2022-06-13 14:47 | ECG_ITS ---
Test Reason : dizziness Blood Pressure : / mmHG Vent. Rate : 059 BPM Atrial Rate : 059 BPM P-R Int : 186 ms QRS Dur : 154 ms QT Int : 416 ms P-R-T Axes : 025 -49 035 degrees QTc Int : 411 ms Sinus bradycardia Left axis deviation Non-specific intra-ventricular conduction block Minimal voltage criteria for LVH, may be normal variant ( [place] product ) Abnormal ECG When compared with ECG of 31-MAR-2021 08:49, QRS duration has increased Criteria for Anterior infarct are no longer Present Criteria for Anterolateral infarct are no longer Present Referred By: Erica Fraga Electronically Signed By:SANCHEZ RONQUILLO MD
--- NOTE | 2022-06-13 14:50 | ED.DIZZY ---
HPI - Dizziness General Chief Complaint: Dizziness <TOBI Patino - Last Filed: 06/13/22 14:55> Stated Complaint: light headed, fainting <TOBI Patino - Last Filed: 06/13/22 14:55> Time Seen by Provider: 06/13/22 19:12 <TOBI Patino - Last Filed: 06/13/22 14:55> Source: patient <TOBI العلي - Last Filed: 06/13/22 23:00> Mode of arrival: ambulatory <TOBI العلي - Last Filed: 06/13/22 23:00> Limitations: no limitations <TOBI العلي Last Filed: 06/13/22 23:00> History of Present Illness HPI Narrative: This is a 57-year-old history of ROSALINDA, hypercholesterolemia presenting to the emergency department with concerns that he has been having episodes for the past year of what he thinks is fainting spells . Last episode was yesterday. Patient tells me he can somewhat tell that these episodes are coming he tells me he starts feeling funny and then drops to the ground, he is unable to tell me how long he loses consciousness for however he does tell me he loses consciousness. He tells me that after he wakes up he feels slightly confused. He reports that at times he has Peed on himself. He reports this is scaring him. He tells me he has told his PCP about this, they referred him to Cardiology however they told him that there is nothing wrong. Patient tells me he does not have a diagnosis of seizures. At this time patient has vague complaints of shortness of breath which has been present for months. He denies chest pain, nausea, vomiting, abdominal pain, cough, sore throat, headache, vision changes and dizziness. Negative EEG in the past per patient. GCS of 15 NIH stroke scale 0. <TOBI العلي Last Filed: 06/13/22 23:00> Related Data Home Medications: Home Medications Medication Instructions Recorded Confirmed naproxen sodium 220 mg tablet 220 mg PO Q12H PRN Pain 03/31/21 03/31/21 (Aleve) Previous Rx's Medication Instructions Recorded atorvastatin 20 mg tablet 20 mg PO DAILY #90 tabs 08/02/21 lisinopril 10 mg tablet 10 mg PO DAILY 90 days #90 tabs 10/06/21 <TOBI Patino - Last Filed: 06/13/22 14:55> Allergies/Adverse Reactions: Allergies Allergy/AdvReac Type Severity Reaction Status Date / Time No Known Allergies Allergy Verified 10/06/21 14:38 <TOBI Patino - Last Filed: 06/13/22 14:55> Review of Systems Review of Systems: Constitutional : No Weight loss, No Fever, No Chills, No Fatigue, No Malaise ENT/Mouth : No sore throat, No Rhinorrhea Eyes: No Eye Pain, No Swelling, No Redness Cardiovascular : No Chest Pain, + SOB, No Dyspnea on Exertion, No Orthopnea, No Edema, No Palpitations Respiratory : No Cough, No Sputum, No Wheezing Gastrointestinal : No Nausea, No Vomiting, No Diarrhea, No Constipation, No abdominal Pain, No Hematochezia, No Melena Genitourinary : No Dysuria, No Urinary Frequency, No Hematuria, Musculoskeletal : No joint pain, No Myalgias, No Joint Swelling Skin : No Skin Lesions, No rash Neuro : No Weakness, No Numbness, No Dizziness, No Headache Psych : No Anxiety/Panic, No Depression All other systems reviewed and are negative <TOBI العلي - Last Filed: 06/13/22 23:00> Yes all other systems are reviewed and are negative <TOBI العلي - Last Filed: 06/13/22 23:00> [facility] Past Medical History Attestation statement: The following information was validated with the patient. <TOBI العلي - Last Filed: 06/13/22 23:00> Source: old records reviewed and nursing notes reviewed <TOBI العلي - Last Filed: 06/13/22 23:00> Medical History: Medical History Elevated cholesterol Loud snoring Murmur Obesity (BMI 30-39.9) ROSALINDA (obstructive sleep apnea) <TOBI Patino - Last Filed: 06/13/22 14:55> Surgical History: Surgical History History of third molar tooth extraction Hx of colonoscopy <TOBI Patino - Last Filed: 06/13/22 14:55> Family History Family History: Family History Father No problems noted. Mother No problems noted. Brother No problems noted. Brother No problems noted. Daughter No problems noted. Sister No problems noted. Sister No problems noted. Sister No problems noted. Other Substance abuse <TOBI Patino - Last Filed: 06/13/22 14:55> Social History Social History: Social History Housing: House Alcohol intake: never Patient Tobacco Use Status: Former Tobacco user Smoked in Last 30 Days: No Second Hand Smoke Exposure: Yes Use of substances other than those prescribed or required for medical reasons: No Advance Directives: No Advance Directives Information Provided: Yes service: No Current occupational status: employed Current occupational exposures/hazards: No Cognitive needs: No Hearing needs: No Vision needs: No <TOBI Patino - Last Filed: 06/13/22 14:55> Physical Exam Vital Signs: Vital Signs: Last Vital Signs Temp 98.0 F 06/13/22 22:00 Pulse 65 06/13/22 22:00 Resp 16 06/13/22 22:00 BP 136/71 06/13/22 22:00 Pulse Ox 98 06/13/22 22:00 O2 Del Method 06/13/22 22:00 BMI result Body Mass Index 34.7 <TOBI Patino - Last Filed: 06/13/22 14:55> Vital Signs: Last Vital Signs Temp 98.0 F 06/13/22 22:00 Pulse 65 06/13/22 22:00 Resp 16 06/13/22 22:00 BP 136/71 06/13/22 22:00 Pulse Ox 98 06/13/22 22:00 O2 Del Method 06/13/22 22:00 BMI result Body Mass Index 34.7 vss <TOBI العلي - Last Filed: 06/13/22 23:00> Appearance: Alert.? Oriented X3.? No acute distress.? Head: Normocephalic, atraumatic, no step-offs or deformities Eyes: Pupils equal, round and reactive to light.? ENT: Pharynx normal.? Neck: Normal inspection.? Neck supple.? CVS: Normal heart rate and rhythm.? Pulses normal.? Respiratory: No respiratory distress.? Breath sounds normal.? Abdomen: Soft and nontender.? Skin: Skin warm and dry.? Normal skin color.? Normal skin turgor.? Extremities: No lower extremity edema.? No calf ttp, negative Alexia bilaterally. 5/5 strength to bilateral upper and lower extremities Back: No midline tenderness, no C-spine tenderness, full range of motion, no CVA tenderness bilaterally Neuro: Oriented X 3.? No motor deficit.? No sensory deficit. CN 2-12 intact . Normal [id number], [id number] ambulating steady gait normal coordination. Negative Romberg. Normal hand pattern wheel maker bilaterally. <TOBI العلي - Last Filed: 06/13/22 23:00> Course Course Course Narrative: 14:50 - 57 yo male with history of ROSALINDA noncompliant with CPAP, history of recurrent syncope last year with a reportedly unremarkable workup who presents to the ER c/o recurrent dizzy episodes and near syncope. 1st episode 06/08 at 3am he woke up SOB, anxious and couldn't breathe, had urinary incontinence. No hx seizures and has had a negative EEG in the past. Yesterday was doing yard work, felt dizzy and disoriented and needed to sit down. Symptoms improved w rest but don't completely resolve. Has bilateral tingling/numbness in the hands, no weakness. Will check labs, <TOBI Patino - Last Filed: 06/13/22 14:55> Reevaluation(s) Reevaluation #1: CBC appears to be within normal limits. Chemistry no acute findings. Troponin negative, EKG nonischemic. D-dimer negative. Head CT normal. I did order CTA head and neck to rule out significant carotid stenosis that could be contributing to patient's symptoms. Patient is complaining of dizziness. <TOBI العلي - Last Filed: 06/13/22 23:00> Time: 21:40 <TOBI العلي - Last Filed: 06/13/22 23:00> Reevaluation #2: CT pending. This case was discussed with the hospitalist to admit patient will likely need an MRI in the morning. Patient continues to complain of dizziness however nonfocal neuro exam, cerebellar intact I do not suspect posterior stroke. Head and neck CTA pending. Hospitalist aware <TOBI العلي - Last Filed: 06/13/22 23:00> Time: 22:59 <TOBI العلي - Last Filed: 06/13/22 23:00> Medications Administered Discontinued Medications Generic Name Dose Route Start Last Admin Trade Name Freq PRN Reason Stop Dose Admin Iohexol 100 ml 06/13/22 22:17 06/13/22 22:18 Iohexol 350 Mg/Ml 100 Ml Infus..Btl IV 06/13/22 22:18 70 ml ONCE ONE Administration <TOBI Patino - Last Filed: 06/13/22 14:55> Medications Administered Discontinued Medications Generic Name Dose Route Start Last Admin Trade Name Freq PRN Reason Stop Dose Admin Iohexol 100 ml 06/13/22 22:17 06/13/22 22:18 Iohexol 350 Mg/Ml 100 Ml Infus..Btl IV 06/13/22 22:18 70 ml ONCE ONE Administration <TOBI العلي - Last Filed: 06/13/22 23:00> Medical Decision Making Medical Decision Making [place] Narrative: 1926 57-year-old male presents with what he thinks is frequent fainting for the past year, last episode was yesterday. Reports a slight prodrome and at times he loses control of his bladder when this happens. Only medical complaint today shortness of breath. Physical examination benign. GCS of 15. NIH stroke scale negative. Concerns for possible seizure versus syncope although the loss of bladder control makes seizure more likely. Will rule out orthostatic hypotension, electrolyte abnormalities, infection. Will also rule out dysrhythmias, ACS, PE. Plan at this time labs, imaging <TOBI العلي - Last Filed: 06/13/22 23:00> Lab Data Result Diagrams: : 06/13/22 15:26 06/13/22 15:26 <TOBI Patino - Last Filed: 06/13/22 14:55> Labs: Lab Results 06/13/22 06/13/22 06/13/22 Range/Units 15:26 15:26 15:26 WBC 10.0 (4.8-10.8) X10*3/uL RBC 5.26 (4.60-5.80) X10*6/uL Hgb 16.1 (14.0-18.0) g/dl Hct 48.1 (42.0-52.0) % MCV 91.4 (80.0-98.0) fL MCH 30.6 (27.0-33.0) pg MCHC 33.5 (31.0-36.0) g/dl RDW 13.1 (11.0-16.0) % Plt Count 374 (160-400) X10*3/uL MPV 9.0 L (9.4-12.4) fL Immature Gran % (Auto) 1.1 H (0.0-0.4) % Neut % (Auto) 54.8 (45-73) % Lymph % (Auto) 34.6 (20-40) % [place] % (Auto) 8.2 (2-11) % Eos % (Auto) 0.9 (0-4) % Baso % (Auto) 0.4 (0-2) % Lymph # (Auto) 3.5 (1.2-4.9) X10*3/uL [place] # (Auto) 0.8 (0.1-1.2) X10*3/uL Eos # (Auto) 0.1 (0.0-0.4) X10*3/uL Baso # (Auto) 0.0 (0.0-0.2) X10*3/uL Abs Immat Gran (auto) 0.11 H (0.00-0.03) X10*3/uL Absolute Neuts (auto) 5.5 (2.0-8.3) x10*3/uL Absolute Nucleated RBC 0.000 (0.0-0.012) X10*3/uL Nucleated RBC % (auto) 0.0 (0.0-0.2) /100WBC D-Dimer High Sensitivty NG/ML Sodium 138 (135-145) mmol/L Potassium 4.3 (3.3-5.1) mmol/L Chloride 104 (96-108) mmol/L Carbon Dioxide 28 (22-29) mmol/L Anion Gap 10 L (12-20) BUN 15 (9-16) mg/dL Creatinine 1.07 (0.5-1.4) mg/dL Estim Creat Clear Calc 81.2 Estimated GFR > 60 Random Glucose 96 (60-115) mg/dL Calcium 9.6 (8.4-10.2) mg/dL Magnesium 1.9 (1.6-2.6) mg/dL Total Bilirubin 0.3 (0.0-1.0) mg/dL Direct Bilirubin < 0.2 (0.0-0.5) mg/dL AST 29 (5-37) U/L ALT 34 (0-40) U/L Alkaline Phosphatase 69 (39-117) U/L Troponin I High Sens 4.4 (<3.5-35.0) ng/L Total Protein 6.7 (6.5-8.0) g/dL Albumin 3.8 (3.5-5.0) g/dL COVID-19 (MARCELLA) (Negative) COVID-19 Clin Com 06/13/22 06/13/22 Range/Units 21:07 22:00 WBC (4.8-10.8) X10*3/uL RBC (4.60-5.80) X10*6/uL Hgb (14.0-18.0) g/dl Hct (42.0-52.0) % MCV (80.0-98.0) fL MCH (27.0-33.0) pg MCHC (31.0-36.0) g/dl RDW (11.0-16.0) % Plt Count (160-400) X10*3/uL MPV (9.4-12.4) fL Immature Gran % (Auto) (0.0-0.4) % Neut % (Auto) (45-73) % Lymph % (Auto) (20-40) % [place] % (Auto) (2-11) % Eos % (Auto) (0-4) % Baso % (Auto) (0-2) % Lymph # (Auto) (1.2-4.9) X10*3/uL [place] # (Auto) (0.1-1.2) X10*3/uL Eos # (Auto) (0.0-0.4) X10*3/uL Baso # (Auto) (0.0-0.2) X10*3/uL Abs Immat Gran (auto) (0.00-0.03) X10*3/uL Absolute Neuts (auto) (2.0-8.3) x10*3/uL Absolute Nucleated RBC (0.0-0.012) X10*3/uL Nucleated RBC % (auto) (0.0-0.2) /100WBC D-Dimer High Sensitivty 165 NG/ML Sodium (135-145) mmol/L Potassium (3.3-5.1) mmol/L Chloride (96-108) mmol/L Carbon Dioxide (22-29) mmol/L Anion Gap (12-20) BUN (9-16) mg/dL Creatinine (0.5-1.4) mg/dL Estim Creat Clear Calc Estimated GFR Random Glucose (60-115) mg/dL Calcium (8.4-10.2) mg/dL Magnesium (1.6-2.6) mg/dL Total Bilirubin (0.0-1.0) mg/dL Direct Bilirubin (0.0-0.5) mg/dL AST (5-37) U/L ALT (0-40) U/L Alkaline Phosphatase (39-117) U/L Troponin I High Sens (<3.5-35.0) ng/L Total Protein (6.5-8.0) g/dL Albumin (3.5-5.0) g/dL COVID-19 (MACRELLA) Negative (Negative) COVID-19 Clin Com See Note <TOBI Patino - Last Filed: 06/13/22 14:55> Lab Results 06/13/22 06/13/22 06/13/22 Range/Units 15:26 15:26 15:26 WBC 10.0 (4.8-10.8) X10*3/uL RBC 5.26 (4.60-5.80) X10*6/uL Hgb 16.1 (14.0-18.0) g/dl Hct 48.1 (42.0-52.0) % MCV 91.4 (80.0-98.0) fL MCH 30.6 (27.0-33.0) pg MCHC 33.5 (31.0-36.0) g/dl RDW 13.1 (11.0-16.0) % Plt Count 374 (160-400) X10*3/uL MPV 9.0 L (9.4-12.4) fL Immature Gran % (Auto) 1.1 H (0.0-0.4) % Neut % (Auto) 54.8 (45-73) % Lymph % (Auto) 34.6 (20-40) % [place] % (Auto) 8.2 (2-11) % Eos % (Auto) 0.9 (0-4) % Baso % (Auto) 0.4 (0-2) % Lymph # (Auto) 3.5 (1.2-4.9) X10*3/uL [place] # (Auto) 0.8 (0.1-1.2) X10*3/uL Eos # (Auto) 0.1 (0.0-0.4) X10*3/uL Baso # (Auto) 0.0 (0.0-0.2) X10*3/uL Abs Immat Gran (auto) 0.11 H (0.00-0.03) X10*3/uL Absolute Neuts (auto) 5.5 (2.0-8.3) x10*3/uL Absolute Nucleated RBC 0.000 (0.0-0.012) X10*3/uL Nucleated RBC % (auto) 0.0 (0.0-0.2) /100WBC D-Dimer High Sensitivty NG/ML Sodium 138 (135-145) mmol/L Potassium 4.3 (3.3-5.1) mmol/L Chloride 104 (96-108) mmol/L Carbon Dioxide 28 (22-29) mmol/L Anion Gap 10 L (12-20) BUN 15 (9-16) mg/dL Creatinine 1.07 (0.5-1.4) mg/dL Estim Creat Clear Calc 81.2 Estimated GFR > 60 Random Glucose 96 (60-115) mg/dL Calcium 9.6 (8.4-10.2) mg/dL Magnesium 1.9 (1.6-2.6) mg/dL Total Bilirubin 0.3 (0.0-1.0) mg/dL Direct Bilirubin < 0.2 (0.0-0.5) mg/dL AST 29 (5-37) U/L ALT 34 (0-40) U/L Alkaline Phosphatase 69 (39-117) U/L Troponin I High Sens 4.4 (<3.5-35.0) ng/L Total Protein 6.7 (6.5-8.0) g/dL Albumin 3.8 (3.5-5.0) g/dL COVID-19 (MARCELLA) (Negative) COVID-19 Clin Com 06/13/22 06/13/22 Range/Units 21:07 22:00 WBC (4.8-10.8) X10*3/uL RBC (4.60-5.80) X10*6/uL Hgb (14.0-18.0) g/dl Hct (42.0-52.0) % MCV (80.0-98.0) fL MCH (27.0-33.0) pg MCHC (31.0-36.0) g/dl RDW (11.0-16.0) % Plt Count (160-400) X10*3/uL MPV (9.4-12.4) fL Immature Gran % (Auto) (0.0-0.4) % Neut % (Auto) (45-73) % Lymph % (Auto) (20-40) % [place] % (Auto) (2-11) % Eos % (Auto) (0-4) % Baso % (Auto) (0-2) % Lymph # (Auto) (1.2-4.9) X10*3/uL [place] # (Auto) (0.1-1.2) X10*3/uL Eos # (Auto) (0.0-0.4) X10*3/uL Baso # (Auto) (0.0-0.2) X10*3/uL Abs Immat Gran (auto) (0.00-0.03) X10*3/uL Absolute Neuts (auto) (2.0-8.3) x10*3/uL Absolute Nucleated RBC (0.0-0.012) X10*3/uL Nucleated RBC % (auto) (0.0-0.2) /100WBC D-Dimer High Sensitivty 165 NG/ML Sodium (135-145) mmol/L Potassium (3.3-5.1) mmol/L Chloride (96-108) mmol/L Carbon Dioxide (22-29) mmol/L Anion Gap (12-20) BUN (9-16) mg/dL Creatinine (0.5-1.4) mg/dL Estim Creat Clear Calc Estimated GFR Random Glucose (60-115) mg/dL Calcium (8.4-10.2) mg/dL Magnesium (1.6-2.6) mg/dL Total Bilirubin (0.0-1.0) mg/dL Direct Bilirubin (0.0-0.5) mg/dL AST (5-37) U/L ALT (0-40) U/L Alkaline Phosphatase (39-117) U/L Troponin I High Sens (<3.5-35.0) ng/L Total Protein (6.5-8.0) g/dL Albumin (3.5-5.0) g/dL COVID-19 (MARCELLA) Negative (Negative) COVID-19 Clin Com See Note <TOBI العلي - Last Filed: 06/13/22 23:00> Critical Care Time Critical Care Time Critical Care Time: No <TOBI العلي - Last Filed: 06/13/22 23:00> Discharge Plan Discharge Clinical Impression: Syncope and collapse <TOBI Patino - Last Filed: 06/13/22 14:55> Patient Disposition: Admitted As Inpatient <TOBI Patino - Last Filed: 06/13/22 14:55>
[2022-06-13 15:30] LABS: MANUAL DIFF FLAG NO
[2022-06-13 15:35] LABS: Basophils Percent Auto 0.4 % (0-2); Eosinophils Absolute Auto 0.1 X10*3/uL (0.0-0.4); Eosinophils Percent Auto 0.9 % (0-4); Hematocrit 48.1 % (42.0-52.0); Hemoglobin 16.1 g/dl (14.0-18.0); Imm Gran Abs Auto 0.11 X10*3/uL (0.00-0.03); Imm Gran Pct Auto 1.1 % (0.0-0.4); Lymphocytes Absolute Auto 3.5 X10*3/uL (1.2-4.9); Lymphocytes Percent Auto 34.6 % (20-40); Mean Corpuscular HGB Conc 33.5 g/dl (31.0-36.0); Mean Corpuscular Hemoglobin 30.6 pg (27.0-33.0); Mean Corpuscular Volume 91.4 fL (80.0-98.0); Monocytes Absolute Auto 0.8 X10*3/uL (0.1-1.2); Monocytes Percent Auto 8.2 % (2-11); Neutrophils Absolute Auto 5.5 x10*3/uL (2.0-8.3); Neutrophils Percent Auto 54.8 % (45-73); Platelet Count 374 X10*3/uL (160-400); Red Blood Count 5.26 X10*6/uL (4.60-5.80); Red Cell Distribution Width 13.1 % (11.0-16.0)
[2022-06-13 15:57] LABS: Troponin-I High Sensitivity 4.4 ng/L (<3.5-35.0)
[2022-06-13 16:01] LABS: Alanine Aminotransferase 34 U/L (0-40); Albumin Level 3.8 g/dL (3.5-5.0); Alkaline Phosphatase 69 U/L (39-117); Anion Gap 10 (12-20); Aspartate Amino Transferase 29 U/L (5-37); Bilirubin Direct < 0.2 mg/dL (0.0-0.5); Bilirubin Total 0.3 mg/dL (0.0-1.0); Blood Urea Nitrogen 15 mg/dL (9-16); Calcium 9.6 mg/dL (8.4-10.2); Carbon Dioxide 28 mmol/L (22-29); Chloride 104 mmol/L (96-108); Creatinine Clr Calc Pharmacy 81.2; Estimated Glomerular Filt Rate > 60; Glucose Random 96 mg/dL (60-115); Magnesium 1.9 mg/dL (1.6-2.6); Potassium 4.3 mmol/L (3.3-5.1); Sodium 138 mmol/L (135-145); Total Protein 6.7 g/dL (6.5-8.0)
[2022-06-13 21:22] LABS: D Dimer High Sensitivity 165 NG/ML
[2022-06-13] MEDS: iohexoL 350 MG/ML 100 ML INFUS..BTL IV (22:18)
[2022-06-13 22:28] LABS: COVID-19 Test Negative (Negative)
--- NOTE | 2022-06-13 22:59 | P.HPHOSP_ITS ---
History of Present Illness Date of Service: 06/13/22 Chief Complaint: syncope 57-year-old male with past medical history of hypertension, ROSALINDA, presents the hospital with multiple episodes of loss of consciousness. patient reports that he has episodes of dizzy spells for the past 1 month. He reports that he had completely loss consciousness yesterday, lasted 10-15 minutes, he reports that he also woke up for a.m. and felt dizzy, and then realized that he had lost bladder control which is very abnormal for him, he reports that about a year ago had similar presentation, and workup including eeg was normal, he also had a Holter monitor which was also normal. Patient denies any recent acute illness, denies any chest pain, no palpitations, no abdominal pain nausea or vomiting, no diarrhea constipation, no urinary symptoms and no lower extremity edema vitals on arrival unremarkable Labs unremarkable CTA head and neck shows no evidence of acute intracranial hemorrhage red Medicine Rytary infarction, mild underlying microangiopathy and generalized cerebral volume loss, and CTA head and neck without proximal occlusion or flow- limiting stenosis Review of Systems Review of Systems: Yes all other systems are reviewed and are negative [facility] Medical History Elevated cholesterol Loud snoring Murmur Obesity (BMI 30-39.9) ROSALINDA (obstructive sleep apnea) Family History Father No problems noted. Mother No problems noted. Brother No problems noted. Brother No problems noted. Daughter No problems noted. Sister No problems noted. Sister No problems noted. Sister No problems noted. Other Substance abuse Surgical History History of third molar tooth extraction Hx of colonoscopy Social History Housing: House Alcohol intake: never Patient Tobacco Use Status: Former Tobacco user Smoked in Last 30 Days: No Second Hand Smoke Exposure: Yes Use of substances other than those prescribed or required for medical reasons: No Advance Directives: No Advance Directives Information Provided: Yes service: No Current occupational status: employed Current occupational exposures/hazards: No Cognitive needs: No Hearing needs: No Vision needs: No Meds Allergies Allergy/AdvReac Type Severity Reaction Status Date / Time No Known Allergies Allergy Verified 10/06/21 14:38 Active Medications: Current Medications Pharmacy Consult (Consult Rx Perform Med Rec) 1 each MISCELLANE ONCE PRN PRN Reason: Consult order Home Medications Medication Instructions Recorded Confirmed Last Taken Type naproxen sodium 220 mg tablet 220 mg PO Q12H PRN Pain 03/31/21 03/31/21 Unknown History (Aleve) Physical Exam Vital Signs and Narrative: Vital Signs: Last Vital Signs Temp 98.0 F 06/13/22 22:00 Pulse 65 06/13/22 22:00 Resp 16 06/13/22 22:00 BP 136/71 06/13/22 22:00 Pulse Ox 98 06/13/22 22:00 O2 Del Method 06/13/22 22:00 BMI result Body Mass Index 34.7 Const: General: cooperative and no acute distress Orientation/consciousness: patient oriented x3 Eyes: General: appearance normal, both eyes and all related structures Resp: Effort & Inspection: normal respiratory effort Auscultation: clear to auscultation bilaterally Cardio: Rate: regular rate Rhythm: regular rhythm GI: Palpation (GI): Soft to palpation Auscultation: normal bowel sounds Skin: General skin exam: no rashes or lesions noted Neuro: General: patient oriented x3 Cognition (Neuro): normal cognition Extrem: General: Yes normal to inspection and Yes no pedal edema Results Labs CBC and Chem 7: 06/13/22 15:26 06/14/22 06:43 Labs: Laboratory Results - last 24 hr 06/13/22 06/13/22 06/13/22 15:26 15:26 15:26 MCV 91.4 MCH 30.6 MCHC 33.5 RDW 13.1 Plt Count 374 MPV 9.0 L Immature Gran % (Auto) 1.1 H Neut % (Auto) 54.8 Lymph % (Auto) 34.6 [place] % (Auto) 8.2 Eos % (Auto) 0.9 Baso % (Auto) 0.4 Lymph # (Auto) 3.5 [place] # (Auto) 0.8 Eos # (Auto) 0.1 Baso # (Auto) 0.0 Abs Immat Gran (auto) 0.11 H Absolute Neuts (auto) 5.5 Absolute Nucleated RBC 0.000 Nucleated RBC % (auto) 0.0 D-Dimer High Sensitivty Anion Gap 10 L Estim Creat Clear Calc 81.2 Estimated GFR > 60 Random Glucose 96 Calcium 9.6 Magnesium 1.9 Total Bilirubin 0.3 Direct Bilirubin < 0.2 AST 29 ALT 34 Alkaline Phosphatase 69 Troponin I High Sens 4.4 Total Protein 6.7 Albumin 3.8 COVID-19 (MARCELLA) COVID-19 Clin Com 06/13/22 06/13/22 21:07 22:00 MCV MCH MCHC RDW Plt Count MPV Immature Gran % (Auto) Neut % (Auto) Lymph % (Auto) [place] % (Auto) Eos % (Auto) Baso % (Auto) Lymph # (Auto) [place] # (Auto) Eos # (Auto) Baso # (Auto) Abs Immat Gran (auto) Absolute Neuts (auto) Absolute Nucleated RBC Nucleated RBC % (auto) D-Dimer High Sensitivty 165 Anion Gap Estim Creat Clear Calc Estimated GFR Random Glucose Calcium Magnesium Total Bilirubin Direct Bilirubin AST ALT Alkaline Phosphatase Troponin I High Sens Total Protein Albumin COVID-19 (MARCELLA) Negative COVID-19 Clin Com See Note Imaging Radiologist's Impressions: Impressions Chest X-Ray 06/13/22 15:01 IMPRESSION: No acute pulmonary process. Head CT 06/13/22 15:08 IMPRESSION: 1. No acute intracranial pathology. Assessment and Plan (1) Syncope and collapse: Status: Acute Plan 57 yo M with pmhx of HTN presents to the hospital with complaints of syncope # Syncope and collapse - no evidence of orthostatic hypotension - recurrent episode - Work up in past in june negative - will obtain MRI # HTN - stable - continue antihypertensive DVT PPX: Early amulation Time Spent With Patient Time: Total time managing care of this patient today ____ minutes. Quality Stroke Does the patient have a stroke diagnosis?: No VTE Prior VTE?: No VTE Risk Level:: Medical - low VTE Device Contraindication: Treatment Not Indicated VTE Drug Contraindication: Treatment Not Indicated
[2022-06-14 00:09] VITALS: BP 148/88; PULSE 66; RESP 16; TEMP 36.5; O2SAT 98
[2022-06-14 06:21] VITALS: BP 95/50; PULSE 56; RESP 13; TEMP 36.7; O2SAT 96
--- NOTE | 2022-06-14 07:02 | PC.NURSE ---
pt is alert and oriented resting in bed no signs of acute distress notice breathing equally unlabored report given to YORDAN Galloway
[2022-06-14 07:32] LABS: Alanine Aminotransferase 30 U/L (0-40); Albumin Level 3.4 g/dL (3.5-5.0); Alkaline Phosphatase 63 U/L (39-117); Anion Gap 10 (12-20); Aspartate Amino Transferase 25 U/L (5-37); Bilirubin Total 0.6 mg/dL (0.0-1.0); Blood Urea Nitrogen 15 mg/dL (9-16); Calcium 9.5 mg/dL (8.4-10.2); Carbon Dioxide 30 mmol/L (22-29); Chloride 107 mmol/L (96-108); Estimated Glomerular Filt Rate > 60; Glucose Random 95 mg/dL (60-115); Potassium 4.8 mmol/L (3.3-5.1); Sodium 142 mmol/L (135-145); Total Protein 5.9 g/dL (6.5-8.0)
--- NOTE | 2022-06-14 08:49 | PC.NURSE ---
pt at MRI, OK for no tele while in MRI
--- NOTE | 2022-06-14 08:54 | MHC.CM.PN ---
CM attempted to meet w/pt however pt off unti for MRI, CM will revisit.
--- NOTE | 2022-06-14 09:52 | PHA.MEDREC ---
Pharmacy Consult ? Medication Reconciliation Pharmacy has completed the medication reconciliation. Patient confirmed all medications. Reports he takes them with his evening meals. Kyleigh Wing, BetzyD
[2022-06-14 10:38] LABS: Amphetamine Screen Urine Not Detected (Not Detect); Barbiturates, Urine Not Detected (Not Detect); Benzodiazepines Screen Urine Not Detected (Not Detect); Cannabinoid Screen Urine POSITIVE (Not Detect); Cocaine Screen Urine Not Detected (Not Detect); Fentanyl, urine Not Detected (Not Detect); Opiate Screen Urine Not Detected (Not Detect); Phencyclidine Screen Urine Not Detected (Not Detect)
[2022-06-14 10:41] LABS: Appearance Urine Cloudy; Color Urine Yellow; Glucose Urine UA Negative (Negative); Leukocyte Esterase Urine Negative (Negative); Nitrite Urine Negative (Negative); PH 5.5 (5.0-9.0); Specific Gravity - Urine >= 1.030 (1.005-1.025); Urine Blood Negative (Negative); Urine Ketones Negative (Negative); Urine Protein Negative (Neg-Trace)
--- NOTE | 2022-06-14 10:55 | PM.DS ---
DS: Providers Provider Date of Service: 06/14/22 Date of admission: 06/13/22 22:57 Primary care physician: George Guzman MD Consults: 06/14/22 08:28 Consult to Neurology Routine Consulting Provider: [facility] [place] [facility] Reason for consultation: recurrent syncope Has provider been notified: No DS: Diagnosis Discharge Diagnosis (1) Syncope and collapse: Status: Acute DS: Summary Hospital Course Hospital Course: Date of Service: 06/13/22 Chief Complaint: syncope ?57-year-old male with past medical history of hypertension, ROSALINDA, presents the hospital with multiple episodes of? loss of consciousness.? patient reports that he has episodes of dizzy spells for the past 1 month.? He reports that he had completely loss consciousness yesterday, lasted 10-15 minutes, he reports that he also woke up for a.m. and felt dizzy, and then realized that he had lost bladder control which is very abnormal for him, he reports that about a year ago had similar presentation, and workup? including? eeg was normal, he also had a Holter monitor which was also normal. Patient denies any recent acute illness, denies any chest pain, no palpitations, no abdominal pain nausea or vomiting, no diarrhea constipation, no urinary symptoms and no lower extremity edema ?vitals on arrival unremarkable Labs unremarkable ?CTA head and neck shows no evidence of acute intracranial hemorrhage red Medicine Rytary infarction, mild underlying microangiopathy and generalized cerebral volume loss, and CTA head and neck without proximal occlusion or flow-limiting stenosis. Hospital course 57 yo M with pmhx of HTN presents to the hospital with? complaints of syncope and collapse, patient orthostatic blood pressures were stable tele monitor showed no acute abnormality, MRI brain showed scattered chronic small vessel ischemic changes within periventricular white matter, otherwise unremarkable study, CTA head and neck showed no proximal occlusion, patient history of incontinence of urine, and feeling funny prior to episodes and repeated episodes are suggestive of Seizure, patient EEG from last year was read as mild cerebral irritability case discussed with Dr. Carcamo, he recommend to start Keppra 500 mg by mouth b.i.d., patient has been seen by Dr. Dukes for similar presentation in the past, therefore will refer patient to Dr. Dukes for outpatient follow-up, recommend to avoid driving, no operating machinery or tub baths # hyperlipidemia continues Lipitor # HTN noted to have low blood pressure will reduce dose of lisinopril to 5 mg Time Spent with Patient Time attestation: Total time managing care of this patient today ____ minutes. Discharge coordination time: Greater than 30 minutes Quality: Safe Use of Opioids Does Pt have an Active Cancer Diagnosis on the Problem List?: No Quality: Stroke Does the patient have a stroke diagnosis?: No Physical Exam Vital Signs: Vital Signs: Last Vital Signs Temp 98.0 F 06/14/22 06:21 Pulse 56 06/14/22 06:21 Resp 13 06/14/22 06:21 BP 95/50 L 06/14/22 06:21 Pulse Ox 96 06/14/22 06:21 O2 Del Method 06/14/22 06:21 BMI result Body Mass Index 34.7 Const: Other: General patient resting comfortably in no acute distress. Neck supple no JVD. CVS regular rate rhythm, Respiratory lungs clear to auscultation, no respiratory distress, no wheeze, no rhonchi. Gastrointestinal abdomen soft, nontender, bowel sounds audible, no guarding , no rigidity. Extremities no edema. Neuro nonfocal , speech clear Skin no rash Psych appropriate affect DS: Data Data Completed and Pending Labs on day of discharge: Laboratory Results - last 24 hr 06/13/22 06/13/22 06/13/22 15:26 15:26 15:26 WBC 10.0 RBC 5.26 Hgb 16.1 Hct 48.1 MCV 91.4 MCH 30.6 MCHC 33.5 RDW 13.1 Plt Count 374 MPV 9.0 L Immature Gran % (Auto) 1.1 H Neut % (Auto) 54.8 Lymph % (Auto) 34.6 [place] % (Auto) 8.2 Eos % (Auto) 0.9 Baso % (Auto) 0.4 Lymph # (Auto) 3.5 [place] # (Auto) 0.8 Eos # (Auto) 0.1 Baso # (Auto) 0.0 Abs Immat Gran (auto) 0.11 H Absolute Neuts (auto) 5.5 Absolute Nucleated RBC 0.000 Nucleated RBC % (auto) 0.0 D-Dimer High Sensitivty Sodium 138 Potassium 4.3 Chloride 104 Carbon Dioxide 28 Anion Gap 10 L BUN 15 Creatinine 1.07 Estim Creat Clear Calc 81.2 Estimated GFR > 60 Random Glucose 96 Calcium 9.6 Magnesium 1.9 Total Bilirubin 0.3 Direct Bilirubin < 0.2 AST 29 ALT 34 Alkaline Phosphatase 69 Troponin I High Sens 4.4 Total Protein 6.7 Albumin 3.8 Urine Color Urine Appearance Urine pH Ur Specific [place] Urine Protein Urine Glucose (UA) Urine Ketones Urine Blood Urine Nitrite Ur Leukocyte Esterase Urine Opiates Screen Urine Fentanyl Screen Ur Barbiturates Screen Ur Phencyclidine Scrn Ur Amphetamines Screen U Benzodiazepines Scrn Urine Cocaine Screen U Marijuana (THC) Screen COVID-19 (MARCELLA) COVID-19 Clin Com 06/13/22 06/13/22 06/14/22 21:07 22:00 06:43 WBC RBC Hgb Hct MCV MCH MCHC RDW Plt Count MPV Immature Gran % (Auto) Neut % (Auto) Lymph % (Auto) [place] % (Auto) Eos % (Auto) Baso % (Auto) Lymph # (Auto) [place] # (Auto) Eos # (Auto) Baso # (Auto) Abs Immat Gran (auto) Absolute Neuts (auto) Absolute Nucleated RBC Nucleated RBC % (auto) D-Dimer High Sensitivty 165 Sodium 142 Potassium 4.8 Chloride 107 Carbon Dioxide 30 H Anion Gap 10 L BUN 15 Creatinine 1.10 Estim Creat Clear Calc 79.0 Estimated GFR > 60 Random Glucose 95 Calcium 9.5 Magnesium Total Bilirubin 0.6 Direct Bilirubin AST 25 ALT 30 Alkaline Phosphatase 63 Troponin I High Sens Total Protein 5.9 L Albumin 3.4 L Urine Color Urine Appearance Urine pH Ur Specific [place] Urine Protein Urine Glucose (UA) Urine Ketones Urine Blood Urine Nitrite Ur Leukocyte Esterase Urine Opiates Screen Urine Fentanyl Screen Ur Barbiturates Screen Ur Phencyclidine Scrn Ur Amphetamines Screen U Benzodiazepines Scrn Urine Cocaine Screen U Marijuana (THC) Screen COVID-19 (MARCELLA) Negative COVID-19 Clin Com See Note 06/14/22 06/14/22 10:10 10:11 WBC RBC Hgb Hct MCV MCH MCHC RDW Plt Count MPV Immature Gran % (Auto) Neut % (Auto) Lymph % (Auto) [place] % (Auto) Eos % (Auto) Baso % (Auto) Lymph # (Auto) [place] # (Auto) Eos # (Auto) Baso # (Auto) Abs Immat Gran (auto) Absolute Neuts (auto) Absolute Nucleated RBC Nucleated RBC % (auto) D-Dimer High Sensitivty Sodium Potassium Chloride Carbon Dioxide Anion Gap BUN Creatinine Estim Creat Clear Calc Estimated GFR Random Glucose Calcium Magnesium Total Bilirubin Direct Bilirubin AST ALT Alkaline Phosphatase Troponin I High Sens Total Protein Albumin Urine Color Yellow Urine Appearance Cloudy Urine pH 5.5 Ur Specific [place] >= 1.030 H Urine Protein Negative Urine Glucose (UA) Negative Urine Ketones Negative Urine Blood Negative Urine Nitrite Negative Ur Leukocyte Esterase Negative Urine Opiates Screen Not Detected Urine Fentanyl Screen Not Detected Ur Barbiturates Screen Not Detected Ur Phencyclidine Scrn Not Detected Ur Amphetamines Screen Not Detected U Benzodiazepines Scrn Not Detected Urine Cocaine Screen Not Detected U Marijuana (THC) Screen POSITIVE H COVID-19 (MARCELLA) COVID-19 Clin Com Discharge Plan Discharge Patient Disposition: Home, Self-Care Discharge Diagnosis: Syncope Referrals: George Guzman MD [Primary Care Provider] - 1 Week Discharge Medications: New levetiracetam 500 mg Tablet 500 mg PO BID Qty: 60 0RF lisinopril 5 mg tablet 5 mg PO DAILY Qty: 30 0RF Continued naproxen sodium [Aleve] 220 mg Tablet 220 mg PO Q12H PRN (Reason: Pain) atorvastatin 20 mg tablet 20 mg PO DAILY@1800 Discontinued lisinopril 10 mg tablet 10 mg PO DAILY@1800 Discharge Orders: Discharge Order (Routine); Ordered 06/14/22 Ordered By: Pascual Dover Diet: Low fat, low cholesterol Activity on Discharge: no driving no tub bath Stand Alone Forms: Patient Portal Discharge page Care Plan Goals: Syncope likely due to seizure take Keppra 500 mg twice daily, do not drive car or operate machinery, no tub bath until seen by Dr. Dukes Health Concerns: Take Lipitor, dose of lisinopril reduced to 5 mg due to soft blood pressure Plan of Treatment: Call Dr. Dukes for follow-up appointment in next 1-2 weeks Assessment: As above
[2022-06-14] MEDS: levETIRAcetam 500 MG TABLET PO (11:18)
--- NOTE | 2022-06-14 13:54 | MHC.CM.PN ---
CM ATTEMPTED TO REVISIT PT HOWEVER PT HAD DISCHARGED HOME, CM UNABLE TO DELIVER LIND.
== END 2022-06-14 11:38 | disposition home or self-care (01) ==
LOC: HO.ED 21:39 → HO.EDOVER 23:10
PROVIDERS: Physician Assistant; Admitting Provider Internal Medicine; Emergency Provider Emergency Medicine; PCP Family Medicine; Visit Provider Hospitalist
DX: R55 Syncope and collapse (principal); Z20.822 Contact with and (suspected) exposure to COVID-19; I10 Essential (primary) hypertension; E78.5 Hyperlipidemia, unspecified; G47.33 Obstructive sleep apnea (adult) (pediatric); Z91.199 Patient's noncompliance with other medical treatment and regimen due to unspecified reason; Z79.02 Long term (current) use of antithrombotics/antiplatelets; Z79.899 Other long term (current) drug therapy
CPT/HCPCS: 36415; 70450; 70496; 70498; 70553; 71045; 80048; 80053; 80076; 80307; 81003; 83735; 84484; 85025; 85379; 87635; 93005; 96374; 99219; 99285; A9585; Q9967

== ENCOUNTER 2022-06-15 14:59 | Emergency (ER) | payer OTHER, SELFPAY ==
--- NOTE | 2022-06-15 16:01 | ED_ITS ---
HPI - Arrhythmia/Palpitations General Chief Complaint: General Medical Stated Complaint: Dizzy SOB Rapid Heartbeat Related Data Home Medications Medication Instructions Recorded Confirmed naproxen sodium 220 mg tablet 220 mg PO Q12H PRN Pain 03/31/21 06/14/22 (Aleve) atorvastatin 20 mg tablet 20 mg PO DAILY@1800 06/14/22 06/14/22 Previous Rx's Medication Instructions Recorded levetiracetam 500 mg tablet 500 mg PO BID #60 tabs 06/14/22 lisinopril 5 mg tablet 5 mg PO DAILY #30 tabs 06/14/22 Allergies Allergy/AdvReac Type Severity Reaction Status Date / Time No Known Allergies Allergy Verified 06/15/22 16:07 [facility] Past Medical History Medical History Elevated cholesterol Loud snoring Murmur Obesity (BMI 30-39.9) ROSALINDA (obstructive sleep apnea) Surgical History History of third molar tooth extraction Hx of colonoscopy Family History Family History Father No problems noted. Mother No problems noted. Brother No problems noted. Brother No problems noted. Daughter No problems noted. Sister No problems noted. Sister No problems noted. Sister No problems noted. Other Substance abuse Social History Social History Housing: House Alcohol intake: never Patient Tobacco Use Status: Former Tobacco user Second Hand Smoke Exposure: Yes service: No Current occupational status: employed Current occupational exposures/hazards: No Cognitive needs: No Hearing needs: No Vision needs: No Physical Exam Vital Signs: Vital Signs: Last Vital Signs Pulse 85 06/15/22 16:02 Resp 20 06/15/22 16:02 BP 128/90 H 06/15/22 16:02 Pulse Ox 97 06/15/22 16:02 O2 Del Method 06/15/22 16:02 BMI result Body Mass Index 34.7 Course Course Course Narrative: This is an RME: Additional HPI, ROS, PE not included below will be deferred to primary provider. Patient is a 57-year-old male history of ROSALINDA and hypercholesterolemia who presents to the emergency department with complaints of dizziness, shortness of breath, watch reading innaccurate for pulse. Symptoms lasted approximately 1 hour and then resolved 30 minutes ago. Currently he is without symptoms. Reports he was seen here recently for similar symptoms. Reports a Holter monitor 1 year ago and a stress test which she says did not find anything. He was seen in the emergency department 2 days ago for similar symptoms, he was admitted into the hospital and discharged the following day; had brain MRI, CTA of the head and neck; had neurology consult with recommendation for initiating Keppra and outpatient follow-up with Ernst. Additionally his lisinopril was decreased to 5 mg as he was having lower blood pressure readings while h ospitalized by his report. He states that he tried contacting his primary care provider to arrange for follow-up visit, but has not received call back yet, he is also awaiting follow-up appointment to be scheduled with Neurology. Plan: Labs, EKG Medical Decision Making Lab Data Result Diagrams: 06/15/22 17:31 06/15/22 17:31 Labs: Lab Results 06/15/22 06/15/22 06/15/22 Range/Units 17:31 17:31 17:31 WBC 10.9 H (4.8-10.8) X10*3/uL RBC 5.40 (4.60-5.80) X10*6/uL Hgb 16.4 (14.0-18.0) g/dl Hct 49.3 (42.0-52.0) % MCV 91.3 (80.0-98.0) fL MCH 30.4 (27.0-33.0) pg MCHC 33.3 (31.0-36.0) g/dl RDW 13.1 (11.0-16.0) % Plt Count 382 (160-400) X10*3/uL MPV 8.9 L (9.4-12.4) fL Immature Gran % (Auto) 0.8 H (0.0-0.4) % Neut % (Auto) 56.6 (45-73) % Lymph % (Auto) 32.2 (20-40) % [place] % (Auto) 9.2 (2-11) % Eos % (Auto) 0.7 (0-4) % Baso % (Auto) 0.5 (0-2) % Lymph # (Auto) 3.5 (1.2-4.9) X10*3/uL [place] # (Auto) 1.0 (0.1-1.2) X10*3/uL Eos # (Auto) 0.1 (0.0-0.4) X10*3/uL Baso # (Auto) 0.1 (0.0-0.2) X10*3/uL Abs Immat Gran (auto) 0.09 H (0.00-0.03) X10*3/uL Absolute Neuts (auto) 6.2 (2.0-8.3) x10*3/uL Absolute Nucleated RBC 0.000 (0.0-0.012) X10*3/uL Nucleated RBC % (auto) 0.0 (0.0-0.2) /100WBC Sodium 138 (135-145) mmol/L Potassium 4.2 (3.3-5.1) mmol/L Chloride 104 (96-108) mmol/L Carbon Dioxide 29 (22-29) mmol/L Anion Gap 9 L (12-20) BUN 16 (9-16) mg/dL Creatinine 1.25 (0.5-1.4) mg/dL Estim Creat Clear Calc 69.5 Estimated GFR 59 Random Glucose 74 (60-115) mg/dL Calcium 9.8 (8.4-10.2) mg/dL Total Bilirubin 0.4 (0.0-1.0) mg/dL AST 31 (5-37) U/L ALT 32 (0-40) U/L Alkaline Phosphatase 71 (39-117) U/L Troponin I High Sens 4.9 (<3.5-35.0) ng/L Total Protein 6.6 (6.5-8.0) g/dL Albumin 3.8 (3.5-5.0) g/dL Discharge Plan Discharge Clinical Impression: Dizziness Patient Disposition: Elopement Prescriptions: No Action naproxen sodium [Aleve] 220 mg Tablet 220 mg PO Q12H PRN (Reason: Pain) atorvastatin 20 mg tablet 20 mg PO DAILY@1800 levetiracetam 500 mg Tablet 500 mg PO BID Qty: 60 0RF lisinopril 5 mg tablet 5 mg PO DAILY Qty: 30 0RF Discharge Date/Time: 12/30/22 23:33
[2022-06-15 16:02] VITALS: BP 128/90; PULSE 85; RESP 20; O2SAT 97; BMI 34.7
--- NOTE | 2022-06-15 16:09 | ECG_ITS ---
Test Reason : dizziness Blood Pressure : / mmHG Vent. Rate : 075 BPM Atrial Rate : 075 BPM P-R Int : 218 ms QRS Dur : 156 ms QT Int : 404 ms P-R-T Axes : 040 -51 042 degrees QTc Int : 451 ms Sinus rhythm with sinus arrhythmia with 1st degree A-V block Left axis deviation Non-specific intra-ventricular conduction block Minimal voltage criteria for LVH, may be normal variant ( [place] product ) Possible Lateral infarct , age undetermined Abnormal ECG When compared with ECG of 13-JUN-2022 15:18, OR interval has increased Referred By: Nuria Houston Electronically Signed By:SANCHEZ RONQUILLO MD
[2022-06-15 17:37] LABS: MANUAL DIFF FLAG NO
[2022-06-15 17:42] LABS: Basophils Absolute Auto 0.1 X10*3/uL (0.0-0.2); Basophils Percent Auto 0.5 % (0-2); Eosinophils Absolute Auto 0.1 X10*3/uL (0.0-0.4); Eosinophils Percent Auto 0.7 % (0-4); Hematocrit 49.3 % (42.0-52.0); Hemoglobin 16.4 g/dl (14.0-18.0); Imm Gran Abs Auto 0.09 X10*3/uL (0.00-0.03); Imm Gran Pct Auto 0.8 % (0.0-0.4); Lymphocytes Absolute Auto 3.5 X10*3/uL (1.2-4.9); Lymphocytes Percent Auto 32.2 % (20-40); Mean Corpuscular HGB Conc 33.3 g/dl (31.0-36.0); Mean Corpuscular Hemoglobin 30.4 pg (27.0-33.0); Mean Corpuscular Volume 91.3 fL (80.0-98.0); Mean Platelet Volume 8.9 fL (9.4-12.4); Monocytes Percent Auto 9.2 % (2-11); Neutrophils Absolute Auto 6.2 x10*3/uL (2.0-8.3); Neutrophils Percent Auto 56.6 % (45-73); Platelet Count 382 X10*3/uL (160-400); Red Cell Distribution Width 13.1 % (11.0-16.0); White Blood Count 10.9 X10*3/uL (4.8-10.8)
[2022-06-15 18:01] LABS: Alanine Aminotransferase 32 U/L (0-40); Albumin Level 3.8 g/dL (3.5-5.0); Alkaline Phosphatase 71 U/L (39-117); Anion Gap 9 (12-20); Aspartate Amino Transferase 31 U/L (5-37); Bilirubin Total 0.4 mg/dL (0.0-1.0); Blood Urea Nitrogen 16 mg/dL (9-16); Calcium 9.8 mg/dL (8.4-10.2); Carbon Dioxide 29 mmol/L (22-29); Chloride 104 mmol/L (96-108); Creatinine Clr Calc Pharmacy 69.5; Estimated Glomerular Filt Rate 59; Glucose Random 74 mg/dL (60-115); Potassium 4.2 mmol/L (3.3-5.1); Sodium 138 mmol/L (135-145); Total Protein 6.6 g/dL (6.5-8.0)
[2022-06-15 18:08] LABS: Troponin-I High Sensitivity 4.9 ng/L (<3.5-35.0)
== END 2022-06-15 23:33 | disposition left against medical advice (07) ==
PROVIDERS: Nurse Practitioner Family; Emergency Provider Emergency Medicine; PCP Family Medicine
DX: R42 Dizziness and giddiness (principal); R06.02 Shortness of breath; R00.2 Palpitations; Z79.899 Other long term (current) drug therapy
CPT/HCPCS: 36415; 80053; 84484; 85025; 93005; 99283

== ENCOUNTER → 2022-07-05 12:06 | Outpatient (BNVA) | payer OTHER, SELFPAY | PROVIDERS: PCP Family Medicine; Visit Provider Internal Medicine | DX: Z45.018 Encounter for adjustment and management of other part of cardiac pacemaker (principal); I44.2 Atrioventricular block, complete; G47.33 Obstructive sleep apnea (adult) (pediatric); E66.9 Obesity, unspecified | CPT/HCPCS: 93280 ==

== ENCOUNTER → 2022-08-27 13:46 | Outpatient (BNVA) | payer OTHER, SELFPAY | PROVIDERS: PCP Family Medicine; Referring Provider Family Medicine; Visit Provider Internal Medicine | DX: I44.2 Atrioventricular block, complete (principal); G47.33 Obstructive sleep apnea (adult) (pediatric); E66.9 Obesity, unspecified | CPT/HCPCS: 93280 ==

== ENCOUNTER → 2022-10-18 14:45 | Outpatient (BNVA) | payer OTHER, SELFPAY | PROVIDERS: PCP Family Medicine; Visit Provider Internal Medicine ==

== ENCOUNTER 2022-12-25 15:42 | Outpatient (AMB) | payer OTHER, SELFPAY ==
[2022-12-25 15:45] VITALS: BP 98/62; PULSE 77; O2SAT 97; BMI 34.4
--- NOTE | 2022-12-25 15:45 | MHC.OFFVIS ---
Intake Vital Signs 12/25/22 15:45 Height 5 ft 6 in Weight 213 lb BMI 34.4 BP 98/62 Blood Pressure Location Lt brachial Position Sitting Pulse 77 Pulse Source Pulse Oximeter Pulse Oximetry (%) 97 Oxygen Delivery Method Room Air Intake Visit Reasons: [place] Intake Note: pt is here for follow up and states he is still struggling, was on vacation for the past week, Allergies No Known Allergies Allergy (Verified 12/25/22 15:57) Medication List - Last Reconciled 12/25/22 by [place] MD atorvastatin 20 mg PO DAILY@1800 90 days blood sugar diagnostic (FreeStyle Lite Strips) E16.2, R55, test blood sugar once a day, 90 days blood-glucose meter (FreeStyle Lite Meter kit) E16.2, R55, test blood sugar once a day, 999 days lisinopril 5 mg PO DAILY 90 days naproxen sodium (Aleve) 220 mg PO Q12H PRN Do you need a note to return to daycare/school/sports/work: No HPI [place] HPI Details THIS 57 YEARS OLD GENTLEMAN WITH MODERATE OBESITY AND OBSTRUCTIVE SLEEP APNEA, . COMES AFTER 2 MONTHS FOR FOLLOW-UP HE DID USE THE CPAP OFF AND ON, BUT ONLY FOR A FEW HOURS AT THE MOST, STILL REMAINS TIRED AND SLEEPY DURING THE DAYTIME. HE HAS EXCUSES LIKE FALLS ASLEEP IN THE RECLINER AND THEN FORGETS TO PUT THE CPAP ON. OR SOMETIME HE PUTS IT ON AND REMOVES IT AFTER A FEW HOURS BECAUSE , HE CANNOT FALL ASLEEP WITH THE MASK ON HIS FACE. WEIGHT DE LA O THERE HAS BEEN NO CHANGE. [facility] Medical History Elevated cholesterol Loud snoring Murmur Obesity (BMI 30-39.9) [place] (obstructive sleep apnea) Pacemaker Surgical History History of third molar tooth extraction Hx of colonoscopy Family History Father No problems noted. Mother No problems noted. Brother No problems noted. Brother No problems noted. Daughter No problems noted. Sister Heart murmur Sister No problems noted. Sister No problems noted. Other Substance abuse Social History Housing: House Alcohol intake: never Patient Tobacco Use Status: Former Tobacco user Second Hand Smoke Exposure: Yes service: No Current occupational status: employed Current occupational exposures/hazards: No Cognitive needs: No Hearing needs: No Vision needs: No Review of Systems Const All systems reviewed & are unremarkable except as noted in HPI and below Eyes Reports no additional complaints ENT Reports no additional complaints Card Denies chest pain, Denies irregular heart rhythm and Denies leg edema Resp Reports no additional complaints, Denies cough and Denies wheezing GI Reports no additional complaints Reports no additional complaints Musc Reports no additional complaints Skin/Breast Reports system reviewed and no additional complaints, except as documented Neuro Reports no additional complaints Psych Reports no additional complaints Endo Reports no additional complaints Aller/Immun Denies wheezing Physical Exam Vital Signs: Last Vital Signs Pulse 77 12/25/22 15:45 BP 98/62 12/25/22 15:45 Pulse Ox 97 12/25/22 15:45 Oxygen Delivery Method Room Air 12/25/22 15:45 BMI result Body Mass Index 34.4 Const General: healthy appearing (EXCEPT FOR BEING OVERWEIGHT), comfortable, no acute distress, alert and awake Orientation/consciousness: patient oriented x3 HEENT Head: Yes normal to inspection General nose exam: No nasal polyps present and No nasal discharge present Face and sinus: Yes sinuses nontender Mouth: oropharynx normal Throat: Yes posterior oropharynx normal Eyes General: appearance normal, both eyes and all related structures Neck Neck: Yes normal visual inspection, Yes no lymphadenopathy, Yes trachea midline and Yes no JVD Thyroid: Thyroid normal Chest Chest palpation & inspection: normal inspection of the chest, normal palpation of entire chest wall and no tenderness Resp Other: Percussion note resonant ,breath sounds are normal on both sides, no wheezes rhonchi or crepitations are heard. Cardio Palpation: normal PMI Rate: regular rate Rhythm: regular rhythm Heart sounds: no gallops and Murmur heart sound present (Systolic murmur over the left sternal border is heard grade 2/6) Peripheral pulses: Peripheral pulses 2+ throughout GI Palpation (GI): Soft to palpation, nontender, No hepatosplenomegaly present, no masses and Other GI palpation findings present (Abdomen moderately obese and protuberant) Auscultation: normal bowel sounds Back/Spine/Pelvis Thoracic/Lumbar Spine: thoracic and lumbar spine normal to inspection Skin General skin exam: no rashes or lesions noted Neuro General: patient oriented x3 and no focal motor deficits Cranial nerves: Yes CN's II-XII intact bilaterally Extrem General: Yes normal to inspection, Yes no clubbing, cyanosis or edema and Yes no calf tenderness Psych Speech and movement: Normal speech and movement present Results Reviewed Results Reviewed: COMPLIANCE REPORT FOR THE LAST 30 NIGHTS IS REVIEWED. HE HAS USED 13/30 NIGHTS, 43%. AVERAGE USE PER NIGHT 2 HOURS 58 MINUTES. PRESSURE USED IS 14-15 CM. NO SIG AIR LEAK. RESIDUAL AHI 3.5 Assessment & Plan Assessment & Plan (1) Obesity (BMI 30-39.9): Comment: He remains grossly obese, Discussed about need to lose weight, he is not able to join weight management program Advised to restrict intake of calories, and do some active exercise on a daily bases. We set up a goal of weight loss by 10% of his current weight ( 21 lb) Code(s): E66.9 - Obesity, unspecified (2) [place] (obstructive sleep apnea): Comment: Diagnosed to have moderately severe obstructive sleep apnea back in 2020. Patient has been non compliant., and still his compliance is very sub optimal. HAD A LONG DISCUSSION AND I TRIED TO STRESS THAT IT IS IMPORTANT FOR HIM TO USE THE CPAP. DESCRIBED THE ALTERNATIVE MODE OF TREATMENT SUCH , MINA DENTAL DEVICE, OR INSPIRE PROCEDURE. HE DOES NOT WANT TO CONSIDER THOSE ALTERNATIVE. HE HAS AGREED TO TRY TO USE CPAP MORE REGULARLY AND FOR MORE HOURS. I DID ADVISE HIM THAT HE COULD BE IN THE RECLINER WITH THE CPAP ON EVEN AND DURING THE DAYTIME IF HE TAKES A NAP. WILL RE-EVALUATE HIM AFTER 4 MONTHS Code(s): G47.33 - Obstructive sleep apnea (adult) (pediatric) Coding Level of Care Code Est Pt Level 3 (41086) Diagnoses Obesity (BMI 30-39.9) E66.9 [place] (obstructive sleep apnea) G47.33
== END 2022-12-25 16:14 | disposition home or self-care (01) ==
PROVIDERS: PCP Family Medicine; Visit Provider Internal Medicine
DX: E66.9 Obesity, unspecified (principal); G47.33 Obstructive sleep apnea (adult) (pediatric)
CPT/HCPCS: 99213

== ENCOUNTER → 2022-12-25 15:42 | Outpatient (BNVA) | payer OTHER, SELFPAY | PROVIDERS: PCP Family Medicine; Visit Provider Internal Medicine ==

== ENCOUNTER 2023-01-03 15:45 | Outpatient (AMB) | payer OTHER, SELFPAY ==
[2023-01-03 15:53] VITALS: BP 124/66; PULSE 69; RESP 12; TEMP 36.6; O2SAT 99; BMI 34.6
--- NOTE | 2023-01-03 15:53 | A.OFFPC_ITS ---
Vital Signs 01/03/23 15:53 Height 5 ft 6 in Weight 214 lb 4 oz BMI 34.6 BP 124/66 Blood Pressure Location Rt brachial Position Sitting Respiration 12 Pulse 69 Pulse Source Pulse Oximeter Temp 97.8 F Temp Source Temporal Artery Scan Pulse Oximetry (%) 99 Oxygen Delivery Method Room Air Intake Visit Reasons: CPE Intake Note: Patient wanted to get a referral to a distribution systems serviceperson/antisqueak filler, whichever is more ideal. Punchboard Stuffer Required: No Accompanied by: Spouse Allergies No Known Allergies Allergy (Verified 01/03/23 15:59) Medication List - Last Reconciled 01/03/23 by George Guzman MD atorvastatin 20 mg PO DAILY@1800 90 days lisinopril 5 mg PO DAILY 90 days naproxen sodium (Aleve) 220 mg PO Q12H PRN Tobacco use date assessed: 06/22/22 Dental Screening Dental Screen Date: 01/03/23 Did you have a dental visit in the last 12 months?: No Did you have a dental problem in the last 6 months where you did not have access to dental care?: No Was dental information given to patient?: Patient has dentist HPI CPE HPI Details 57 y/o male presents for a CPE with f/u labs and health maintenance. Hx of complete heart block and obstructive sleep apnea. No recent labs to review. Blood pressure today is 124/66. He is on lisinopril 5mg daily. He reports he has been using his CPAP machine more. He reports chest wall pain that lasts quickly. He continues to follow up with Cardiology. [facility] Medical History Elevated cholesterol Loud snoring Murmur Obesity (BMI 30-39.9) ROSALINDA (obstructive sleep apnea) Pacemaker Surgical History History of third molar tooth extraction Hx of colonoscopy Family History Father No problems noted. Mother No problems noted. Brother No problems noted. Brother No problems noted. Daughter No problems noted. Sister Heart murmur Sister No problems noted. Sister No problems noted. Other Substance abuse Social History Housing: House Alcohol intake: never Patient Tobacco Use Status: Former Tobacco user e-Cigarette/Vaping Use: Never Used Second Hand Smoke Exposure: Yes service: No Current occupational status: employed Current occupation: [employer] Current occupational exposures/hazards: No Cognitive needs: No Hearing needs: No Vision needs: Yes Questionnaire Thrive Questionnaire Date Thrive assessed: 06/22/22 SABA-7 AMB Questionnaire SABA-7 Date SABA - 7 assessed: 06/22/22 Source: Developed by Drs. Kaushik Miller, Elizabet Crystal, Jamari Martinez and colleagues, with an educational lina from [employer]. Review of Systems Const Denies chills, Denies fatigue, Denies fever(s), Denies headache(s) and Denies weakness Eyes Denies change in vision ENT Denies dizziness, Denies headache(s), Denies hearing loss, Denies nasal congestion, Denies sinus pain, Denies sinus pressure and Denies sore throat Card Denies chest pain, Denies lightheadedness, Denies dyspnea and Denies other (palpitations) Resp Denies cough, Denies dyspnea and Denies wheezing GI Denies abdominal pain, Denies melena, Denies hematochezia, Denies change in bowel habits, Denies dyspepsia and Denies nausea Denies hematuria and Denies dysuria Musc Denies abnormal gait, Denies myalgias, Denies arthralgias, Denies numbness and Denies tingling Skin/Breast Denies rash, Denies unusual bruising and Denies wounds Neuro Denies abnormal gait, Denies dizziness, Denies headache(s), Denies memory loss, Denies numbness, Denies Sensory deficit (Neuro), Denies tingling and Denies weakness Psych Denies anxiety, Denies depression and Denies memory loss Endo Denies cold intolerance, Denies fatigue, Denies heat intolerance, Denies polydipsia and Denies polyuria Aniceto/Lymph Denies easy bleeding and Denies easy bruising Aller/Immun Denies wheezing Physical exam (Primary Care) Vital Signs: Last Vital Signs Temp 97.8 F 01/03/23 15:53 Pulse 69 01/03/23 15:53 Resp 12 01/03/23 15:53 BP 124/66 01/03/23 15:53 Pulse Ox 99 01/03/23 15:53 Oxygen Delivery Method Room Air 01/03/23 15:53 BMI result Body Mass Index 34.6 Tobacco/Smoking Status: Tobacco use Status Tobacco use date assessed 06/22/22 01/03/23 16:03 Patient Tobacco Use Status Former Tobacco user 01/03/23 16:03 e-Cigarette/Vaping Use Never Used 01/03/23 16:03 Thrive Assessment: Date of Thrive Assessment Date Thrive assessed 06/22/22 01/03/23 16:03 Const General: no acute distress, well developed, alert and awake Nutritional Appearance: well nourished Orientation/consciousness: patient oriented x3 HENMT Head: Yes normocephalic and Yes atraumatic Ears: hearing grossly normal bilaterally and TM's normal bilaterally General nose exam: Normal external nose present and Normal nares present Mouth: Normal oral and palatal mucosa present and moist mucous membranes Teeth and gingiva: dentition normal Throat: Yes posterior oropharynx normal Eyes General: appearance normal, both eyes and all related structures Pupils: Equal, round and reactive pupils present and Pupil accommodation reflex normal EOM: EOMs intact bilaterally Neck Neck: Yes normal visual inspection, Yes no lymphadenopathy and Yes trachea midline Thyroid: Thyroid normal Carotids: no bruits Lymphatic: no lymphadenopathy noted Chest Chest palpation & inspection: normal inspection of the chest Resp Effort & Inspection: normal respiratory effort Auscultation: clear to auscultation bilaterally Cardio Rate: regular rate Rhythm: regular rhythm Heart sounds: S1 normal heart sound present, S2 normal heart sound present, no gallops, no murmurs and no rubs Bruits: no abdominal aortic bruits and no carotid bruits GI Palpation (GI): No Abdominal aortic bruit present, Soft to palpation, nontender, No hepatosplenomegaly present and No Rebound tenderness present Auscultation: normal bowel sounds General: Yes no CVA tenderness Back/Spine/Pelvis Back: no CVA tenderness Cervical Spine: cervical ROM normal and No Cervical spine tenderness Thoracic/Lumbar Spine: thoraco-lumbar ROM normal, No pain with thoraco-lumbar ROM, No thoracic spinal tenderness and No lumbar spinal tenderness Skin Lesions: no lesions Rashes: no rashes Trauma: no lacerations or abrasions Wounds: no wounds Nails: normal Neuro General: patient oriented x3 Cranial nerves: Yes Equal, round and reactive pupils present Cognition (Neuro): normal cognition Gait exam (Neuro): Normal gait present Motor exam (neuro): 5/5 motor strength present throughout Sensory Exam: No Sensory deficit (Neuro) Deep tendon reflexes (DTR's): Right patellar reflex intensity grade: 2+ and Left patellar reflex intensity grade: 2+ Extrem General: Yes normal to inspection and No edema Psych Appearance: grossly normal Affect: normal affect Attitude: cooperative Thought process: Normal thought process present Assessment and Plan Assessment & Plan (1) Adult general medical exam: Code(s): Z00.00 - Encounter for general adult medical examination without abnormal findings Plan: 57-year-old male presents for complete physical exam Encouraged a healthy diet with active lifestyle and plenty of exercise (2) Complete heart block: Code(s): I44.2 - Atrioventricular block, complete Plan: Has permanent pacer placed Cardiac auscultation today normal Follow-up with Cardiology as recommended (3) Essential hypertension: Code(s): I10 - Essential (primary) hypertension Plan: Blood pressure is controlled Continue current medication regimen (4) ROSALINDA (obstructive sleep apnea): Code(s): G47.33 - Obstructive sleep apnea (adult) (pediatric) Plan: Followed by pulmonology. Now using his CPAP more consistently Continue CPAP Follow-up with pulmonology as recommended (5) Obesity (BMI 30-39.9): Code(s): E66.9 - Obesity, unspecified Plan: Will monitor (6) Hypercholesterolemia: Code(s): E78.00 - Pure hypercholesterolemia, unspecified Plan: He is on atorvastatin 20 mg daily Checking lipid levels and follow-up at next encounter (7) Screening for colon cancer: Code(s): Z12.11 - Encounter for screening for malignant neoplasm of colon Plan: Colonoscopy [place] [address] Lakhani who recommended a 5 year follow-up Follow-up in 2024 (8) Screening for prostate cancer: Code(s): Z12.5 - Encounter for screening for malignant neoplasm of prostate Plan: Will check PSA Orders: Orders Comprehensive [place]. Panel Fast Today Z00.00 - Encounter for general adult medical examination without abnormal findings Lipid Panel Today Z00.00 - Encounter for general adult medical examination without abnormal findings Prostate Specific Antigen Scr Today Z12.5 - Encounter for screening for malignant neoplasm of prostate TSH reflex Free T4 Today Z00.00 - Encounter for general adult medical examination without abnormal findings Microalbumin, Random (w Creat) Today I10 - Essential (primary) hypertension Complete Blood Count Auto Diff Today Z00.00 - Encounter for general adult medical examination without abnormal findings UA and rflx microscopic Today Z00.00 - Encounter for general adult medical examination without abnormal findings Coding Level of Care Code Est Pt Level 3 (05034) Est Pt Prev Care 40-64y(00253) Diagnoses Adult general medical exam Z00.00 Complete heart block I44.2 Essential hypertension I10 ROSALINDA (obstructive sleep apnea) G47.33 Obesity (BMI 30-39.9) E66.9 Hypercholesterolemia E78.00 Screening for colon cancer Z12.11 Screening for prostate cancer Z12.5
== END 2023-01-03 16:45 | disposition home or self-care (01) ==
PROVIDERS: PCP Family Medicine; Visit Provider Family Medicine
DX: Z00.00 Encounter for general adult medical examination without abnormal findings (principal); I44.2 Atrioventricular block, complete; I10 Essential (primary) hypertension; Z68.34 Body mass index [BMI] 34.0-34.9, adult; G47.33 Obstructive sleep apnea (adult) (pediatric); Z12.11 Encounter for screening for malignant neoplasm of colon; E66.9 Obesity, unspecified; E78.00 Pure hypercholesterolemia, unspecified; Z12.5 Encounter for screening for malignant neoplasm of prostate
CPT/HCPCS: 99396

== ENCOUNTER 2023-01-12 07:42 | Outpatient (REF) | payer OTHER, SELFPAY ==
[2023-01-12 11:15] LABS: MANUAL DIFF FLAG NO
[2023-01-12 11:29] LABS: Basophils Percent Auto 0.2 % (0-2); Eosinophils Absolute Auto 0.1 X10*3/uL (0.0-0.4); Eosinophils Percent Auto 1.3 % (0-4); Hematocrit 49.8 % (42.0-52.0); Hemoglobin 16.4 g/dl (14.0-18.0); Imm Gran Abs Auto 0.04 X10*3/uL (0.00-0.03); Imm Gran Pct Auto 0.7 % (0.0-0.4); Lymphocytes Absolute Auto 2.7 X10*3/uL (1.2-4.9); Lymphocytes Percent Auto 45.1 % (20-40); Mean Corpuscular HGB Conc 32.9 g/dl (31.0-36.0); Mean Corpuscular Hemoglobin 30.9 pg (27.0-33.0); Mean Corpuscular Volume 93.8 fL (80.0-98.0); Mean Platelet Volume 10.1 fL (9.4-12.4); Monocytes Absolute Auto 0.6 X10*3/uL (0.1-1.2); Monocytes Percent Auto 9.2 % (2-11); Neutrophils Absolute Auto 2.7 x10*3/uL (2.0-8.3); Neutrophils Percent Auto 43.5 % (45-73); Platelet Count 341 X10*3/uL (160-400); Red Blood Count 5.31 X10*6/uL (4.60-5.80); Red Cell Distribution Width 13.6 % (11.0-16.0); White Blood Count 6.1 X10*3/uL (4.8-10.8)
[2023-01-12 11:36] LABS: Alanine Aminotransferase 28 U/L (0-40); Albumin Level 3.8 g/dL (3.5-5.0); Alkaline Phosphatase 68 U/L (39-117); Anion Gap 15 (12-20); Aspartate Amino Transferase 32 U/L (5-37); Bilirubin Total 0.6 mg/dL (0.0-1.0); Blood Urea Nitrogen 17 mg/dL (9-16); Carbon Dioxide 22 mmol/L (22-29); Chloride 106 mmol/L (96-108); Estimated Glomerular Filt Rate > 60; Glucose Fasting 104 mg/dL (60-99); Potassium 4.4 mmol/L (3.3-5.1); Sodium 139 mmol/L (135-145); Total Protein 7.1 g/dL (6.5-8.0)
[2023-01-12 11:50] LABS: Prostate Specific Antigen Scr 0.57 ng/mL (<0.05-4.0)
[2023-01-12 11:53] LABS: TSH reflex Free T4 1.55 uIU/mL (0.32-4.0)
== END 2023-01-12 07:43 | disposition home or self-care (01) ==
LOC: HO.HMGCLDS 07:42
PROVIDERS: PCP Family Medicine; Visit Provider Family Medicine
DX: Z00.00 Encounter for general adult medical examination without abnormal findings (principal); Z12.5 Encounter for screening for malignant neoplasm of prostate
CPT/HCPCS: 36415; 80053; 84153; 84443; 85025

== ENCOUNTER 2023-01-18 11:20 | Outpatient (REF) | payer OTHER, SELFPAY ==
[2023-01-18 13:19] LABS: Appearance Urine Clear; Color Urine Yellow; Glucose Urine UA Negative (Negative); Leukocyte Esterase Urine Negative (Negative); Nitrite Urine Negative (Negative); Urine Blood Negative (Negative); Urine Ketones Negative (Negative); Urine Protein Negative (Neg-Trace)
[2023-01-18 23:52] LABS: Creatinine Urine 35.43 mg/dL; Microalbumin Urine < 5.0 mg/L
== END 2023-01-18 11:21 | disposition home or self-care (01) ==
LOC: HO.HMGCLNP 11:20
PROVIDERS: PCP Family Medicine; Visit Provider Family Medicine
DX: Z00.00 Encounter for general adult medical examination without abnormal findings (principal); I10 Essential (primary) hypertension
CPT/HCPCS: 81003; 82043

== ENCOUNTER → 2023-01-20 23:59 | Outpatient (BNV) | payer OTHER, SELFPAY ==
--- NOTE | 2023-01-21 15:48 | MHC.OFFVIS ---
Intake Intake Visit Reasons: Remote Device Check- [employer] Allergies No Known Allergies Allergy (Verified 01/03/23 15:59) [facility] Medical History Elevated cholesterol Loud snoring Murmur Obesity (BMI 30-39.9) ROSALINDA (obstructive sleep apnea) Pacemaker Surgical History History of third molar tooth extraction Hx of colonoscopy Family History Father No problems noted. Mother No problems noted. Brother No problems noted. Brother No problems noted. Daughter No problems noted. Sister Heart murmur Sister No problems noted. Sister No problems noted. Other Substance abuse Social History Housing: House Alcohol intake: never Patient Tobacco Use Status: Former Tobacco user e-Cigarette/Vaping Use: Never Used Second Hand Smoke Exposure: Yes service: No Current occupational status: employed Current occupation: [employer] Current occupational exposures/hazards: No Cognitive needs: No Hearing needs: No Vision needs: Yes Office Procedures Cardiac Device Check Cardiac Device Check Details: Date of service- 01/20/2023 ; Battery life >11 years; normal lead parameters; AP 40%; SUPERIOR COURT CLERK 99%; no significant arrhythmias. Overall normal device function. [id number] Cardiac Device Interrogation, pacemaker Procedure code (CPT) selection complete Assessment & Plan Assessment & Plan (1) Complete heart block: Code(s): I44.2 - Atrioventricular block, complete Coding Level of Care Code Procedure Only Diagnoses Complete heart block I44.2 CPT Codes Cardiac Device Check - Cardiac Device 12: [id number] Cardiac Device Interrogation, pacemaker ([id number])
== END ==
PROVIDERS: PCP Family Medicine; Visit Provider Internal Medicine
DX: I44.2 Atrioventricular block, complete (principal)
CPT/HCPCS: 93294

== ENCOUNTER 2023-02-01 16:38 | Outpatient (AMB) | payer OTHER, SELFPAY ==
--- NOTE | 2023-02-01 14:52 | MHC.PC.OV ---
Intake Visit Reasons: f/u CPE-labs Allergies No Known Allergies Allergy (Verified 01/03/23 15:59) Tobacco use date assessed: 06/22/22 HPI f/u CPE-labs HPI Details 57 y/o male presents to f/u CPE-labs via telemedicine. Labs were drawn 01/12/23. Reviewed labs with pt. Elevated fasting glucose of 104. Lipid panel ordered but were not drawn. Pt reports shortness of breath and some slight lightheadedness. He denies any chest pain. 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 Olmstead. Pt states he does have a pacer placed. He had noted apple watch had unusual heart readings during his episodes of dyspnea. [facility] Medical History Elevated cholesterol Loud snoring Murmur Obesity (BMI 30-39.9) ROSALINDA (obstructive sleep apnea) Pacemaker Surgical History History of third molar tooth extraction Hx of colonoscopy Family History Father No problems noted. Mother No problems noted. Brother No problems noted. Brother No problems noted. Daughter No problems noted. Sister Heart murmur Sister No problems noted. Sister No problems noted. Other Substance abuse Social History Housing: House Alcohol intake: never Patient Tobacco Use Status: Former Tobacco user e-Cigarette/Vaping Use: Never Used Second Hand Smoke Exposure: Yes service: No Current occupational status: employed Current occupation: [employer] Current occupational exposures/hazards: No Cognitive needs: No Hearing needs: No Vision needs: Yes Questionnaire Thrive Questionnaire Date Thrive assessed: 06/22/22 SABA-7 AMB Questionnaire SABA-7 Date SABA - 7 assessed: 06/22/22 Source: Developed by Drs. Kaushik Miller, Elizabet Crystal, Jamari Martinez and colleagues, with an educational lina from [employer]. Review of Systems Const Denies chills, Denies fatigue, Denies fever(s), Denies headache(s) and Denies weakness ENT Denies dizziness and Denies headache(s) Card Denies dyspnea Resp Denies cough, Denies dyspnea, Denies wheezing and Denies other (shortness of breath) Musc Denies numbness and Denies tingling Neuro Denies dizziness, Denies headache(s), Denies numbness, Denies tingling and Denies weakness Psych Denies anxiety and Denies depression Endo Denies fatigue Aller/Immun Denies wheezing Physical exam (Primary Care) Tobacco/Smoking Status: Tobacco use Status Tobacco use date assessed 06/22/22 01/03/23 16:03 Patient Tobacco Use Status Former Tobacco user 01/03/23 16:03 e-Cigarette/Vaping Use Never Used 01/03/23 16:03 Thrive Assessment: Date of Thrive Assessment Date Thrive assessed 06/22/22 01/03/23 16:03 Telehealth Telehealth Minutes spent on Phone/Video with Pt.: 9 Assessment and Plan Assessment & Plan (1) Elevated fasting blood sugar: Code(s): R73.01 - Impaired fasting glucose Plan: Mildly elevated fasting blood sugar on review of labs. Will have him repeat these. We will follow-up in 2 months (2) Dyspnea on exertion: Code(s): R06.09 - Other forms of dyspnea Plan: Patient noted some dyspnea on exertion and felt dizzy/presyncopal He notes that his Apple watch had unusual heart rate readings at the same time. He has a history of heart block and a pacer placed. No upcoming cardiology appointment so I will ask his librarian assistant to see him sooner. Meantime, if he has any further symptoms he should get this checked out at the ED. (3) Pre-syncope: Code(s): R55 - Syncope and collapse Plan: As above Orders: Referrals Cardiology Referral R06.09 - Other forms of dyspnea, R55 - Syncope and collapse Coding Level of Care Code Tele Est Pt Level 2 (70714) Diagnoses Elevated fasting blood sugar R73.01 Dyspnea on exertion R06.09 Pre-syncope R55
== END 2023-02-01 17:00 ==
PROVIDERS: PCP Family Medicine; Visit Provider Family Medicine
DX: R73.01 Impaired fasting glucose (principal); R06.09 Other forms of dyspnea; R55 Syncope and collapse
CPT/HCPCS: 99212

== ENCOUNTER 2023-02-08 09:38 | Outpatient (AMB) | payer OTHER, SELFPAY ==
[2023-02-08 10:05] VITALS: BP 134/70; PULSE 68; BMI 34.2
--- NOTE | 2023-02-08 10:05 | MHC.OFFVIS ---
Intake Vital Signs 02/08/23 10:05 Height 5 ft 6 in Weight 211 lb 10.3 oz BMI 34.2 BP 134/70 Blood Pressure Location Lt brachial Position Sitting Pulse 68 Intake Visit Reasons: follow up per PCP Intake Note: Patient has a pacemaker medtronic he has been having irregular heart beats and s/b Allergies No Known Allergies Allergy (Verified 02/08/23 10:12) Medication List - Last Reconciled 02/08/23 by Hattie Lazaro, CHADD-C atorvastatin 20 mg PO DAILY@1800 90 days lisinopril 5 mg PO DAILY 90 days naproxen sodium (Aleve) 220 mg PO Q12H PRN HPI follow up per PCP HPI Details Kaushik is a 58 yo male with PMH of HLD, ROSALINDA, CHB, s/p Medtronic dual chamber pacemaker placement who present for requested follow up. Today he states that he walks 2 miles daily. Around 2 weeks ago he was doing his usual walk and he felt a little short of breath. He checked his watch and it said his heart rate was in the 60s, then a few minutes later he checked it and it was in the 90s. This jump in his heart rate caused him concern. He was able to complete is walk without incident. He has since been continuing to walk daily without any recurrent symptoms. He keeps an eye on his pulse rate and it usually runs between 60 and 100. He has not noted any rapid rates or excessively slow heart rates. He does not have presyncope, syncope, falls. No recurrent shortness of breath, PND, orthopnea or edema. No chest discomfort at rest or with activity. Significant other is present. [facility] Medical History Elevated cholesterol Loud snoring Murmur Obesity (BMI 30-39.9) ROSALINDA (obstructive sleep apnea) Pacemaker Surgical History History of third molar tooth extraction Hx of colonoscopy Family History Father No problems noted. Mother No problems noted. Brother No problems noted. Brother No problems noted. Daughter No problems noted. Sister Heart murmur Sister No problems noted. Sister No problems noted. Other Substance abuse Social History Housing: House Alcohol intake: never Patient Tobacco Use Status: Former Tobacco user e-Cigarette/Vaping Use: Never Used Second Hand Smoke Exposure: Yes service: No Current occupational status: employed Current occupation: [employer] Current occupational exposures/hazards: No Cognitive needs: No Hearing needs: No Vision needs: Yes Review of Systems Const All systems reviewed & are unremarkable except as noted in HPI and below Card Reports dyspnea (One episode) Resp Reports dyspnea (One episode) Physical Exam Vital Signs: Last Vital Signs BP 134/70 02/08/23 10:05 BMI result Body Mass Index 34.2 Const General: cooperative, healthy appearing, comfortable and no acute distress Orientation/consciousness: patient oriented x3 Neck Neck: Yes normal visual inspection Resp Effort & Inspection: normal respiratory effort Auscultation: clear to auscultation bilaterally, no crackles, no rales, no rhonchi and no wheezes Cardio Jugular venous distension: no JVD Rate: regular rate Rhythm: regular rhythm Heart sounds: S1 normal heart sound present, S2 normal heart sound present, no murmurs and no rubs Neuro General: patient oriented x3 Extrem General: Yes normal to inspection Psych Appearance: grossly normal Mental Status: mental status grossly normal Speech and movement: Normal speech and movement present Office Procedures Cardiac Device Check Cardiac Device Check Details: Medtronic dual-chamber pacemaker device interrogation today shows battery 11.8 years, atrial and ventricular thresholds normal, low rate 60, upper tracking rate 130, 1 brief high V rate, V paced 99.1% of time, a paced 39.8 % of time. No alerts 16300-[id number] Cardiac Device Check, pacemaker dual lead Procedure code (CPT) selection complete EKG Details: Today, read by me, a sense, V pace, rate 68, QTC 408 millisecond 39190-[id number], Complete Assessment & Plan Assessment & Plan (1) Dyspnea on exertion: Code(s): R06.09 - Other forms of dyspnea Plan: Patient describes 1 day where he felt a little short of breath during his usual walk. He noticed a quick variation in his heart rate which caused him concern. He has since continued his usual walks each day and has not had recurrent symptoms. Device interrogation today shows it is functioning normally. 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 An echocardiogram was done on him 09/06/2020 showing EF 60-65%, no valve abnormalities. A nuclear stress test done 09/06/2020 showed normal myocardial perfusion imaging. On examination he has no clinical signs indicating heart failure. Offered reassurance. He will continue his daily walks and notify this office if he has any new concerning symptoms. Cardiology follow-up as planned 08/2023 (2) Complete heart block: Code(s): I44.2 - Atrioventricular block, complete Plan: Medtronic dual-chamber pacemaker in place (3) Essential hypertension: Code(s): I10 - Essential (primary) hypertension Plan: Well controlled at present. No med changes made. Coding Level of Care Code Est Pt Level 4 (48400) Diagnoses Dyspnea on exertion R06.09 Complete heart block I44.2 Essential hypertension I10 CPT Codes Cardiac Device Check - Cardiac Device 2: [id number] Cardiac Device Check, pacemaker dual lead ([id number]) EKG - CPT: 54585-[id number], Complete ([id number]) Time Spent (min) 24 Comment Chart review, documentation, interview, assessment, device check
== END 2023-02-08 10:41 | disposition home or self-care (01) ==
LOC: HO.HCS 09:38
PROVIDERS: PCP Family Medicine; Referring Provider Family Medicine; Visit Provider Nurse Practitioner Family
DX: R06.09 Other forms of dyspnea (principal); I44.2 Atrioventricular block, complete; I10 Essential (primary) hypertension; Z95.0 Presence of cardiac pacemaker
CPT/HCPCS: 93280; 99214

== ENCOUNTER → 2023-02-08 09:38 | Outpatient (BNVA) | payer OTHER, SELFPAY | PROVIDERS: PCP Family Medicine; Referring Provider Family Medicine; Visit Provider Nurse Practitioner Family | DX: I44.2 Atrioventricular block, complete (principal); I10 Essential (primary) hypertension; R06.09 Other forms of dyspnea; Z45.018 Encounter for adjustment and management of other part of cardiac pacemaker | CPT/HCPCS: 93005; 93280 ==

== ENCOUNTER 2023-04-06 09:25 | Outpatient (REF) | payer OTHER, SELFPAY ==
[2023-04-06 11:17] LABS: Estimated Average Glucose 111 mg/dL; Hemoglobin A1c % 5.5 % (<6.0)
[2023-04-06 11:31] LABS: Alanine Aminotransferase 27 U/L (0-40); Albumin Level 3.7 g/dL (3.5-5.0); Alkaline Phosphatase 57 U/L (39-117); Anion Gap 12 (12-20); Aspartate Amino Transferase 35 U/L (5-37); Bilirubin Total 0.6 mg/dL (0.0-1.0); Blood Urea Nitrogen 17 mg/dL (9-16); Calcium 9.4 mg/dL (8.4-10.2); Carbon Dioxide 24 mmol/L (22-29); Chloride 106 mmol/L (96-108); Cholesterol 132 mg/dL (<200); Estimated Glomerular Filt Rate > 60; Glucose Fasting 84 mg/dL (60-99); HDL Cholesterol 43 mg/dL (>40); LDL Cholesterol Calculated 76 mg/dL (<100); Potassium 3.9 mmol/L (3.3-5.1); Sodium 138 mmol/L (135-145); Total Protein 6.4 g/dL (6.5-8.0); Triglycerides 68 mg/dL (<150)
== END 2023-04-06 09:26 | disposition home or self-care (01) ==
LOC: HO.HMGCLDS 09:25
PROVIDERS: PCP Family Medicine; Visit Provider Family Medicine
DX: Z00.00 Encounter for general adult medical examination without abnormal findings (principal); E78.00 Pure hypercholesterolemia, unspecified; R73.01 Impaired fasting glucose
CPT/HCPCS: 36415; 80053; 80061; 83036

== ENCOUNTER 2023-04-09 15:28 | Outpatient (AMB) | payer OTHER, SELFPAY ==
--- NOTE | 2023-04-09 15:32 | MHC.PC.OV ---
Vital Signs 04/09/23 15:39 Height 5 ft 6 in Weight 213 lb 5 oz BMI 34.4 BP 118/70 Blood Pressure Location Lt brachial Position Sitting Pulse 69 Pulse Source Pulse Oximeter Pulse Oximetry (%) 96 Oxygen Delivery Method Room Air Intake Visit Reasons: f/u elevated fasting blood sugar & hyperlipidemia Intake Note: Patient is here to follow up on labs. Allergies No Known Allergies Allergy (Verified 04/09/23 15:43) Tobacco use date assessed: 04/09/23 Dental Screening Dental Screen Date: 04/09/23 Did you have a dental visit in the last 12 months?: Yes Did you have a dental problem in the last 6 months where you did not have access to dental care?: No Was dental information given to patient?: No HPI f/u elevated fasting blood sugar & hyperlipidemia HPI Details 58 y/o male presents to f/u elevated fasting blood sugars and HLD. Labs were drawn 04/06/23. Reviewed labs with pt. A1c 5.5%. Triglycerides 68. TC 132. LDL 76. HDL 43. He is on artovastatin 20mg daily. Pt denies any new symptoms of pre-syncope today. Blood pressure today 118/70. He is on lisinopril 5mg daily. [facility] Medical History Pacemaker ROSALINDA (obstructive sleep apnea) Obesity (BMI 30-39.9) Loud snoring Elevated cholesterol Murmur Surgical History History of third molar tooth extraction Hx of colonoscopy Family History Father No problems noted. Mother No problems noted. Brother No problems noted. Brother No problems noted. Daughter No problems noted. Sister Heart murmur Sister No problems noted. Sister No problems noted. Other Substance abuse Social History Housing: House Alcohol intake: never Patient Tobacco Use Status: Former Tobacco user e-Cigarette/Vaping Use: Never Used Second Hand Smoke Exposure: Yes service: No Current occupational status: employed Current occupation: [employer] Current occupational exposures/hazards: No Cognitive needs: No Hearing needs: No Vision needs: Yes Questionnaire Thrive Questionnaire Date Thrive assessed: 06/22/22 SABA-7 AMB Questionnaire SABA-7 Date SABA - 7 assessed: 06/22/22 Source: Developed by Drs. Kaushik Miller, Elizabet Crystal, Jamari Martinez and colleagues, with an educational lina from [employer]. Review of Systems Const Denies chills, Denies fatigue, Denies fever(s), Denies headache(s) and Denies weakness ENT Denies dizziness and Denies headache(s) Card Denies dyspnea Resp Denies cough, Denies dyspnea, Denies wheezing and Denies other (shortness of breath) Musc Denies numbness and Denies tingling Neuro Denies dizziness, Denies headache(s), Denies numbness, Denies tingling and Denies weakness Psych Denies anxiety and Denies depression Endo Denies fatigue Aller/Immun Denies wheezing Physical exam (Primary Care) Vital Signs: Last Vital Signs Pulse 69 04/09/23 15:39 BP 118/70 04/09/23 15:39 Pulse Ox 96 04/09/23 15:39 Oxygen Delivery Method Room Air 04/09/23 15:39 BMI result Body Mass Index 34.4 Tobacco/Smoking Status: Tobacco use Status Tobacco use date assessed 04/09/23 04/09/23 15:49 Patient Tobacco Use Status Former Tobacco user 04/09/23 15:33 e-Cigarette/Vaping Use Never Used 04/09/23 15:33 Thrive Assessment: Date of Thrive Assessment Date Thrive assessed 06/22/22 04/09/23 15:33 Const General: well developed; No acute distress Nutritional Appearance: well nourished and obese Orientation/consciousness: patient oriented x3 [facility]: Yes normocephalic and Yes atraumatic Eyes General: appearance normal, both eyes and all related structures Pupils: Equal, round and reactive pupils present EOM: EOMs intact bilaterally Resp Effort & Inspection: normal respiratory effort Auscultation: clear to auscultation bilaterally Cardio Rate: regular rate Rhythm: regular rhythm Heart sounds: S1 normal heart sound present, S2 normal heart sound present, no gallops, no murmurs and no rubs Neuro General: patient oriented x3 and gait normal Cranial nerves: Yes Equal, round and reactive pupils present Psych Affect: normal affect Assessment and Plan Assessment & Plan (1) Elevated fasting blood sugar: Code(s): R73.01 - Impaired fasting glucose Plan: Mildly?elevated?fasting?blood?sugar?at?prior?Check?but?more?recently?fasting?blood?sugar?84 A1c?was?5.5%?which?is?in?normal?range?but?towards?the?top?of?normal?range. Encouraged?a?diet?lower?in?sugars?and?starches No?indication?for?meds?at?this?time (2) Hypercholesterolemia: Code(s): E78.00 - Pure hypercholesterolemia, unspecified Plan: Lipids?appear?well?controlled?on?atorvastatin?20?mg?daily Continue?current?medication?regimen (3) Pre-syncope: Code(s): R55 - Syncope and collapse Plan: This?seems?to?have?resolved Follow-up?with?Cardiology?if?needed (4) Essential hypertension: Code(s): I10 - Essential (primary) hypertension Plan: Blood?pressure?is?well?controlled.??Goal?is?less?than?140/90 Continue?current?medication?regimen Coding Level of Care Code Est Pt Level 4 (30974) Diagnoses Elevated fasting blood sugar R73.01 Hypercholesterolemia E78.00 Pre-syncope R55 Essential hypertension I10
[2023-04-09 15:39] VITALS: BP 118/70; PULSE 69; O2SAT 96; BMI 34.4
== END 2023-04-09 16:29 | disposition home or self-care (01) ==
PROVIDERS: PCP Family Medicine; Visit Provider Family Medicine
DX: R73.01 Impaired fasting glucose (principal); E78.00 Pure hypercholesterolemia, unspecified; R55 Syncope and collapse; I10 Essential (primary) hypertension
CPT/HCPCS: 99214

== ENCOUNTER → 2023-04-21 23:59 | Outpatient (BNV) | payer OTHER, SELFPAY ==
--- NOTE | 2023-04-22 14:26 | MHC.OFFVIS ---
Intake Intake Visit Reasons: Remote Device Check- Medtronic Allergies No Known Allergies Allergy (Verified 04/09/23 15:43) [facility] Medical History Pacemaker ROSALINDA (obstructive sleep apnea) Obesity (BMI 30-39.9) Loud snoring Elevated cholesterol Murmur Surgical History History of third molar tooth extraction Hx of colonoscopy Family History Father No problems noted. Mother No problems noted. Brother No problems noted. Brother No problems noted. Daughter No problems noted. Sister Heart murmur Sister No problems noted. Sister No problems noted. Other Substance abuse Social History Housing: House Alcohol intake: never Patient Tobacco Use Status: Former Tobacco user e-Cigarette/Vaping Use: Never Used Second Hand Smoke Exposure: Yes service: No Current occupational status: employed Current occupation: [employer] Current occupational exposures/hazards: No Cognitive needs: No Hearing needs: No Vision needs: Yes Office Procedures Cardiac Device Check Cardiac Device Check Details: Date of service- 04/21/2023 ; Battery life >11 years; normal lead parameters; AP 47%; RELIEF MATE 99%; no significant arrhythmias. Overall normal device function. [id number] Cardiac Device Interrogation, pacemaker Procedure code (CPT) selection complete Assessment & Plan Assessment & Plan (1) Complete heart block: Code(s): I44.2 - Atrioventricular block, complete Coding Level of Care Code Procedure Only Diagnoses Complete heart block I44.2 CPT Codes Cardiac Device Check - Cardiac Device 12: [id number] Cardiac Device Interrogation, pacemaker ([id number])
== END ==
PROVIDERS: PCP Family Medicine; Visit Provider Internal Medicine
DX: I44.2 Atrioventricular block, complete (principal); Z95.0 Presence of cardiac pacemaker
CPT/HCPCS: 93294

== ENCOUNTER 2023-04-22 15:52 | Outpatient (AMB) | payer OTHER, SELFPAY ==
--- NOTE | 2023-04-22 15:54 | MHC.OFFVIS ---
Intake Vital Signs 04/22/23 15:57 Height 5 ft 6 in Weight 216 lb BMI 34.9 BP 130/82 Blood Pressure Location Lt brachial Position Sitting Pulse 75 Pulse Source Pulse Oximeter Pulse Oximetry (%) 93 Oxygen Delivery Method Room Air Intake Visit Reasons: china Intake Note: pt is here for follow up and states he is doing well okay with cpap. doing well. 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 He has done a great job in using CPAP. Uses CPAP every night only 2 nights out of 30 nights he use for less than 4 hours. Most of the nights he sleeps about 6 hours with the CPAP on and has no issue with the mask or the machine. He feels more energetic during the daytime. Weight alexander there has been no progress . [facility] Medical History Pacemaker [place] (obstructive sleep apnea) Obesity (BMI 30-39.9) Loud snoring Elevated cholesterol Murmur Surgical History History of third molar tooth extraction Hx of colonoscopy Family History Father No problems noted. Mother No problems noted. Brother No problems noted. Brother No problems noted. Daughter No problems noted. Sister Heart murmur Sister No problems noted. Sister No problems noted. Other Substance abuse Social History Housing: House Alcohol intake: never Patient Tobacco Use Status: Former Tobacco user e-Cigarette/Vaping Use: Never Used Second Hand Smoke Exposure: Yes service: No Current occupational status: employed Current occupation: [employer] Current occupational exposures/hazards: No Cognitive needs: No Hearing needs: No Vision needs: Yes Review of Systems Const All systems reviewed & are unremarkable except as noted in HPI and below Eyes Reports no additional complaints ENT Reports no additional complaints Card Denies chest pain, Denies irregular heart rhythm and Denies leg edema Resp Reports no additional complaints, Denies cough and Denies wheezing GI Reports no additional complaints Reports no additional complaints Musc Reports no additional complaints Skin/Breast Reports system reviewed and no additional complaints, except as documented Neuro Reports no additional complaints Psych Reports no additional complaints Endo Reports no additional complaints Aller/Immun Denies wheezing Physical Exam Vital Signs: Last Vital Signs Pulse 75 04/22/23 15:57 BP 130/82 04/22/23 15:57 Pulse Ox 93 04/22/23 15:57 Oxygen Delivery Method Room Air 04/22/23 15:57 BMI result Body Mass Index 34.9 Const General: healthy appearing (EXCEPT FOR BEING OVERWEIGHT), comfortable, no acute distress, alert and awake Orientation/consciousness: patient oriented x3 HEENT Head: Yes normal to inspection General nose exam: No nasal polyps present and No nasal discharge present Face and sinus: Yes sinuses nontender Mouth: oropharynx normal Throat: Yes posterior oropharynx normal Eyes General: appearance normal, both eyes and all related structures Neck Neck: Yes normal visual inspection, Yes no lymphadenopathy, Yes trachea midline and Yes no JVD Thyroid: Thyroid normal Chest Chest palpation & inspection: normal inspection of the chest, normal palpation of entire chest wall and no tenderness Resp Other: Percussion note resonant ,breath sounds are normal on both sides, no wheezes rhonchi or crepitations are heard. Cardio Palpation: normal PMI Rate: regular rate Rhythm: regular rhythm Heart sounds: no gallops and Murmur heart sound present (Systolic murmur over the left sternal border is heard grade 2/6) Peripheral pulses: Peripheral pulses 2+ throughout GI Palpation (GI): Soft to palpation, nontender, No hepatosplenomegaly present, no masses and Other GI palpation findings present (Abdomen moderately obese and protuberant) Auscultation: normal bowel sounds Back/Spine/Pelvis Thoracic/Lumbar Spine: thoracic and lumbar spine normal to inspection Skin General skin exam: no rashes or lesions noted Neuro General: patient oriented x3 and no focal motor deficits Cranial nerves: Yes CN's II-XII intact bilaterally Extrem General: Yes normal to inspection, Yes no clubbing, cyanosis or edema and Yes no calf tenderness Psych Speech and movement: Normal speech and movement present Results Reviewed Results Reviewed: Compliance report for the last 30 nights is reviewed. He has used 30/30 nights, 100%. Average usage per hour 5 hours 50 minutes. Pressure used mostly 15 cm. Residual AHI 4.9 Assessment & Plan Assessment & Plan (1) Obesity (BMI 30-39.9): Comment: He is moderately obese, trying to lose weight slowly, but no big success so for. Code(s): E66.9 - Obesity, unspecified (2) [place] (obstructive sleep apnea): Comment: He is a known case of obstructive sleep apnea. Being treated well with the CPAP. Compliance is good and he is benefiting from the use of CPAP. Code(s): G47.33 - Obstructive sleep apnea (adult) (pediatric) Coding Level of Care Code Est Pt Level 3 (20513) Diagnoses Obesity (BMI 30-39.9) E66.9 [place] (obstructive sleep apnea) G47.33
[2023-04-22 15:57] VITALS: BP 130/82; PULSE 75; O2SAT 93; BMI 34.9
== END 2023-04-22 16:12 | disposition home or self-care (01) ==
PROVIDERS: PCP Family Medicine; Visit Provider Internal Medicine
DX: E66.9 Obesity, unspecified (principal); G47.33 Obstructive sleep apnea (adult) (pediatric)
CPT/HCPCS: 99213

== ENCOUNTER → 2023-04-22 15:52 | Outpatient (BNVA) | payer OTHER, SELFPAY | PROVIDERS: PCP Family Medicine; Visit Provider Internal Medicine ==

== ENCOUNTER → 2023-07-20 23:59 | Outpatient (BNV) | payer OTHER, SELFPAY ==
--- NOTE | 2023-07-28 14:29 | A.OFFVIS_ITS ---
Intake Intake Visit Reasons: Remote Device Check- Medtronic Allergies No Known Allergies Allergy (Verified 04/22/23 16:12) COUNTS INCLUDE 234 BEDS AT THE [facility] Medical History Pacemaker ROSALINDA (obstructive sleep apnea) Obesity (BMI 30-39.9) Loud snoring Elevated cholesterol Murmur Surgical History History of third molar tooth extraction Hx of colonoscopy Family History Father No problems noted. Mother No problems noted. Brother No problems noted. Brother No problems noted. Daughter No problems noted. Sister Heart murmur Sister No problems noted. Sister No problems noted. Other Substance abuse Social History Housing: House Alcohol intake: never Patient Tobacco Use Status: Former Tobacco user e-Cigarette/Vaping Use: Never Used Second Hand Smoke Exposure: Yes service: No Current occupational status: employed Current occupation: [employer] Current occupational exposures/hazards: No Cognitive needs: No Hearing needs: No Vision needs: Yes Office Procedures Cardiac Device Check Cardiac Device Check Details: Date of service- 07/20/2023 ; Battery life >11years; normal lead parameters; AP 43%; [employer] 99%; transient NSVT, 1 sec; otherwise no significant arrhythmias. Overall normal device function. [id number] Cardiac Device Interrogation, pacemaker Procedure code (CPT) selection complete Assessment & Plan Assessment & Plan (1) Complete heart block: Code(s): I44.2 - Atrioventricular block, complete Plan x Coding Level of Care Code Procedure Only Diagnoses Complete heart block I44.2 CPT Codes Cardiac Device Check - Cardiac Device 12: [id number] Cardiac Device Interrogation, pacemaker ([id number])
== END ==
PROVIDERS: PCP Family Medicine; Visit Provider Internal Medicine
DX: I44.2 Atrioventricular block, complete (principal); Z95.0 Presence of cardiac pacemaker
CPT/HCPCS: 93294

== ENCOUNTER 2023-08-21 14:35 | Outpatient (AMB) | payer OTHER, SELFPAY ==
[2023-08-21 14:43] VITALS: BP 126/70; PULSE 74; BMI 34.9
--- NOTE | 2023-08-21 14:43 | A.OFFVIS_ITS ---
Intake Vital Signs 08/21/23 14:43 Height 5 ft 6 in Weight 216 lb 0.848 oz BMI 34.9 BP 126/70 Blood Pressure Location Lt brachial Position Sitting Pulse 74 Intake Visit Reasons: 1 year follow up Intake Note: 1 year follow up Curtain Cleaner Required: No Accompanied by: Family/Other Allergies No Known Allergies Allergy (Verified 08/21/23 14:45) Medication List - Last Reconciled 08/21/23 by José Luis Olmstead MD atorvastatin 20 mg PO DAILY@1800 90 days lisinopril 5 mg PO DAILY 90 days naproxen sodium (Aleve) 220 mg PO Q12H PRN HPI HPI Comments History of Present Illness Details Kaushik returns for follow-up. He has a pacemaker in place for complete heart block. Overall, doing well. He does not have any complaints like angina or shortness of breath or in fact anything cardiac sounding. He states he is getting along fine. [facility] Medical History Pacemaker ROSALINDA (obstructive sleep apnea) Obesity (BMI 30-39.9) Loud snoring Elevated cholesterol Murmur Surgical History History of third molar tooth extraction Hx of colonoscopy Family History Father No problems noted. Mother No problems noted. Brother No problems noted. Brother No problems noted. Daughter No problems noted. Sister Heart murmur Sister No problems noted. Sister No problems noted. Other Substance abuse Social History Housing: House Alcohol intake: never Patient Tobacco Use Status: Former Tobacco user e-Cigarette/Vaping Use: Never Used Second Hand Smoke Exposure: Yes service: No Current occupational status: employed Current occupation: [employer] Current occupational exposures/hazards: No Cognitive needs: No Hearing needs: No Vision needs: Yes Review of Systems Const Denies weakness ENT Denies dizziness Card Denies chest pain, Denies chest pain with activity, Denies syncope, Denies rapid heart rate, Denies pedal edema, Denies edema, Denies leg edema, Denies lightheadedness, Denies palpitations, Denies dyspnea, Denies dyspnea on exertion and Denies orthopnea Resp Denies cough, Denies dyspnea and Denies dyspnea on exertion GI Denies hematochezia and Denies change in stool character Musc Denies abnormal gait, Denies muscle cramps, Denies muscle weakness, Denies numbness, Denies radiating pain into limb and Denies tingling Neuro Denies abnormal gait, Denies dizziness, Denies syncope, Denies numbness, Denies tingling and Denies weakness Endo Denies palpitations Physical Exam Vital Signs: Last Vital Signs Pulse 74 08/21/23 14:43 BP 126/70 08/21/23 14:43 BMI result Body Mass Index 34.9 Const General: comfortable and no acute distress Orientation/consciousness: patient oriented x3 HEENT Other: Unremarkable Head: Yes normal to inspection Neck Neck: Yes normal visual inspection Chest Chest palpation & inspection: normal inspection of the chest Resp Auscultation: clear to auscultation bilaterally Cardio Palpation: normal PMI Heart sounds: S1 normal heart sound present, S2 normal heart sound present, no gallops, no murmurs and no rubs GI Palpation (GI): Soft to palpation Back/Spine/Pelvis Other: unremarkable Skin General skin exam: no rashes or lesions noted Neuro General: patient oriented x3 Extrem General: Yes normal to inspection Psych Mental Status: mental status grossly normal Assessment & Plan Assessment & Plan (1) Complete heart block: Code(s): I44.2 - Atrioventricular block, complete Plan: Stable; status post pacemaker placement. Being followed remotely. He is pacer dependent. (2) ROSALINDA (obstructive sleep apnea): Code(s): G47.33 - Obstructive sleep apnea (adult) (pediatric) Plan: Continue CPAP. (3) Obesity (BMI 30-39.9): Code(s): E66.9 - Obesity, unspecified Plan: Has been a long-term issue. Have discussed weight loss numerous times. Coding Level of Care Code Est Pt Level 3 (50086) Diagnoses Complete heart block I44.2 ROSALINDA (obstructive sleep apnea) G47.33 Obesity (BMI 30-39.9) E66.9
== END 2023-08-21 15:33 | disposition home or self-care (01) ==
PROVIDERS: PCP Family Medicine; Visit Provider Internal Medicine
DX: I44.2 Atrioventricular block, complete (principal); G47.33 Obstructive sleep apnea (adult) (pediatric); E66.9 Obesity, unspecified
CPT/HCPCS: 99213

== ENCOUNTER → 2023-08-21 14:35 | Outpatient (BNVA) | payer OTHER, SELFPAY | PROVIDERS: PCP Family Medicine; Visit Provider Internal Medicine ==

== ENCOUNTER 2023-09-13 14:10 | Outpatient (AMB) | payer OTHER, SELFPAY ==
[2023-09-13 14:26] VITALS: BP 138/70; PULSE 77; O2SAT 96; BMI 35.2
--- NOTE | 2023-09-13 14:26 | A.OFFPC_ITS ---
Vital Signs 09/13/23 14:26 Height 5 ft 6 in Weight 218 lb BMI 35.2 BP 138/70 Blood Pressure Location Lt brachial Position Sitting Pulse 77 Pulse Source Pulse Oximeter Pulse Oximetry (%) 96 Oxygen Delivery Method Room Air Intake Visit Reasons: f/u hypertension Intake Note: Patient is here for follow up on hypertension. Allergies No Known Allergies Allergy (Verified 08/21/23 14:45) Medication List - Last Reconciled 09/13/23 by George Guzman MD atorvastatin 20 mg PO DAILY@1800 90 days lisinopril 5 mg PO DAILY 90 days naproxen sodium (Aleve) 220 mg PO Q12H PRN Tobacco use date assessed: 09/13/23 Dental Screening Dental Screen Date: 04/09/23 HPI f/u hypertension HPI Details 58 y/o male presents to f/u hypertension . Blood pressure today 138/70. He is on lisinopril 5mg daily. He denies any issues with this medication regimen. [facility] Medical History Pacemaker ROSALINDA (obstructive sleep apnea) Obesity (BMI 30-39.9) Loud snoring Elevated cholesterol Murmur Surgical History History of third molar tooth extraction Hx of colonoscopy Family History Father No problems noted. Mother No problems noted. Brother No problems noted. Brother No problems noted. Daughter No problems noted. Sister Heart murmur Sister No problems noted. Sister No problems noted. Other Substance abuse Social History Housing: House Alcohol intake: never Patient Tobacco Use Status: Former Tobacco user e-Cigarette/Vaping Use: Never Used Second Hand Smoke Exposure: Yes service: No Current occupational status: employed Current occupation: [employer] Current occupational exposures/hazards: No Cognitive needs: No Hearing needs: No Vision needs: Yes Questionnaire PHQ-9 Over the last 2 weeks, how often have you been bothered by any of the following problems? 36648 - PHQ-9 Billing: Patient declined-do not bill Source: Developed by Drs. Kaushik Miller, ElizabetJamari Benoit and colleagues, with an educational lina from [employer]. Thrive Questionnaire Date Thrive assessed: 06/22/22 AUDIT C Alcohol Use Questionnaire (AUDIT-C) 1. How often do you have a drink containing alcohol?: Never 3. How often do you have six or more drinks on one occasion?: Never Total Score: 0 SABA-7 AMB Questionnaire SABA-7 Date SABA - 7 assessed: 06/22/22 Source: Developed by Drs. Kaushik Miller, Jamari Osborne and colleagues, with an educational lina from [employer]. SABA-7 Assessment Billing SABA-7 Assessment Tool: pt declined-do not bill Review of Systems Const Denies chills, Denies fatigue, Denies fever(s), Denies headache(s) and Denies weakness ENT Denies dizziness and Denies headache(s) Card Denies dyspnea Resp Denies cough, Denies dyspnea, Denies wheezing and Denies other (shortness of breath) Musc Denies numbness and Denies tingling Neuro Denies dizziness, Denies headache(s), Denies numbness, Denies tingling and Denies weakness Psych Denies anxiety and Denies depression Endo Denies fatigue Aller/Immun Denies wheezing Physical exam (Primary Care) Vital Signs: Last Vital Signs Pulse 77 09/13/23 14:26 BP 138/70 09/13/23 14:26 Pulse Ox 96 09/13/23 14:26 Oxygen Delivery Method Room Air 09/13/23 14:26 BMI result Body Mass Index 35.2 Tobacco/Smoking Status: Tobacco use Status Tobacco use date assessed 09/13/23 09/13/23 14:29 Patient Tobacco Use Status Former Tobacco user 09/13/23 14:29 e-Cigarette/Vaping Use Never Used 09/13/23 14:29 Thrive Assessment: Date of Thrive Assessment Date Thrive assessed 06/22/22 09/13/23 14:29 Const General: well developed; No acute distress Nutritional Appearance: well nourished Orientation/consciousness: patient oriented x3 HENMT Head: Yes normocephalic and Yes atraumatic Eyes General: appearance normal, both eyes and all related structures Pupils: Equal, round and reactive pupils present EOM: EOMs intact bilaterally Resp Effort & Inspection: normal respiratory effort Neuro General: patient oriented x3 and gait normal Cranial nerves: Yes Equal, round and reactive pupils present Psych Affect: normal affect Assessment and Plan Assessment & Plan (1) Essential hypertension: Code(s): I10 - Essential (primary) hypertension Plan: Blood?pressure?is?controlled.??Goal?is?less?than?140/90 Continue?current?medication Encouraged?diet,?exercise,?weight?loss?and?salt/sodium?avoidance. (2) ROSALINDA (obstructive sleep apnea): Code(s): G47.33 - Obstructive sleep apnea (adult) (pediatric) Plan: Using?CPAP?regularly Follow-up?with?pulmonology?as?recommended Orders: Orders Lipid Panel Today Z00.00 - Encounter for general adult medical examination without abnormal findings Prostate Specific Antigen Scr Today Z12.5 - Encounter for screening for malignant neoplasm of prostate UA and rflx microscopic Today Z00.00 - Encounter for general adult medical examination without abnormal findings Comprehensive [place]. Panel Fast Today Z00.00 - Encounter for general adult medical examination without abnormal findings Microalbumin, Random (w Creat) Today I10 - Essential (primary) hypertension TSH reflex Free T4 Today Z00.00 - Encounter for general adult medical examinatio n without abnormal findings Medications: Refilled atorvastatin 20 mg PO DAILY@1800 90 tabs 3RF 90 days lisinopril 5 mg PO DAILY 90 tabs 3RF 90 days Coding Level of Care Code Est Pt Level 3 (49354) Diagnoses Essential hypertension I10 ROSALINDA (obstructive sleep apnea) G47.33
== END 2023-09-13 15:02 | disposition home or self-care (01) ==
PROVIDERS: PCP Family Medicine; Visit Provider Family Medicine
DX: I10 Essential (primary) hypertension (principal); G47.33 Obstructive sleep apnea (adult) (pediatric)
CPT/HCPCS: 99213

== ENCOUNTER → 2023-10-19 23:59 | Outpatient (BNV) | payer OTHER, SELFPAY ==
--- NOTE | 2023-10-23 14:28 | A.OFFVIS_ITS ---
Intake Visit Reasons: Remote device check- Medtronic Allergies No Known Allergies Allergy (Verified 08/21/23 14:45) PFSH Medical History Pacemaker ROSALINDA (obstructive sleep apnea) Obesity (BMI 30-39.9) Loud snoring Elevated cholesterol Murmur Surgical History History of third molar tooth extraction Hx of colonoscopy Family History Father No problems noted. Mother No problems noted. Brother No problems noted. Brother No problems noted. Daughter No problems noted. Sister Heart murmur Sister No problems noted. Sister No problems noted. 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 Overall normal device function. [id number] Cardiac Device Interrogation, pacemaker Procedure code (CPT) selection complete Assessment & Plan Assessment & Plan (1) Complete heart block: Code(s): I44.2 - Atrioventricular block, complete Category: Medical Plan: x Coding Level of Care Code Procedure Only Diagnoses Complete heart block I44.2 CPT Codes Cardiac Device Check - Cardiac Device 12: [id number] Cardiac Device Interrogation, pacemaker ([id number])
== END ==
PROVIDERS: PCP Family Medicine; Visit Provider Internal Medicine
DX: I44.2 Atrioventricular block, complete (principal); Z95.0 Presence of cardiac pacemaker
CPT/HCPCS: 93294

== ENCOUNTER 2023-10-29 15:33 | Outpatient (AMB) | payer OTHER, SELFPAY ==
[2023-10-29 15:42] VITALS: BP 108/62; PULSE 74; O2SAT 96; BMI 34.3
--- NOTE | 2023-10-29 15:42 | MHC.OFFVIS ---
Vital Signs 10/29/23 15:42 Height 5 ft 6 in Weight 212 lb 11.937 oz BMI 34.3 BP 108/62 Blood Pressure Location Lt brachial Position Sitting Pulse 74 Pulse Source Pulse Oximeter Pulse Oximetry (%) 96 Oxygen Delivery Method Room Air Intake Visit Reasons: [place] Intake Note: pt is here follow up and states he is doing well. 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 HE IS BEING TREATED WITH CPAP. HE USES THE CPAP EVERY NIGHT AT LEAST FOR 6 HOURS. HE HAS NO COMPLAINT ABOUT THE MASK OR CPAP. MACHINE HE CLAIMS THAT HIS SLEEP IS DEFINITELY MUCH BETTER THAN BEFORE. HE DENIES ANY DAYTIME SLEEPINESS. HE IS TRYING TO LOSE WEIGHT AND HAS LOST ABOUT 6 LB IN THE LAST 6 MONTHS. [facility] Medical History Pacemaker [place] (obstructive sleep apnea) Obesity (BMI 30-39.9) Loud snoring Elevated cholesterol Murmur Surgical History History of third molar tooth extraction Hx of colonoscopy Family History Father No problems noted. Mother No problems noted. Brother No problems noted. Brother No problems noted. Daughter No problems noted. Sister Heart murmur Sister No problems noted. Sister No problems noted. Other Substance abuse Social History Housing: House Alcohol intake: never Patient Tobacco Use Status: Former Tobacco user e-Cigarette/Vaping Use: Never Used Second Hand Smoke Exposure: Yes service: No Current occupational status: employed Current occupation: [employer] Current occupational exposures/hazards: No Cognitive needs: No Hearing needs: No Vision needs: Yes Review of Systems Const All systems reviewed & are unremarkable except as noted in HPI and below Eyes Reports no additional complaints ENT Reports no additional complaints Card Denies chest pain, Denies irregular heart rhythm and Denies leg edema Resp Reports no additional complaints, Denies cough and Denies wheezing GI Reports no additional complaints Reports no additional complaints Musc Reports no additional complaints Skin/Breast Reports system reviewed and no additional complaints, except as documented Neuro Reports no additional complaints Psych Reports no additional complaints Endo Reports no additional complaints Aller/Immun Denies wheezing Physical Exam Vital Signs: Last Vital Signs Pulse 74 10/29/23 15:42 BP 108/62 10/29/23 15:42 Pulse Ox 96 10/29/23 15:42 Oxygen Delivery Method Room Air 10/29/23 15:42 BMI result Body Mass Index 34.3 Const General: healthy appearing (EXCEPT FOR BEING OVERWEIGHT), comfortable, no acute distress, alert and awake Orientation/consciousness: patient oriented x3 HEENT Head: Yes normal to inspection General nose exam: No nasal polyps present and No nasal discharge present Face and sinus: Yes sinuses nontender Mouth: oropharynx normal Throat: Yes posterior oropharynx normal Eyes General: appearance normal, both eyes and all related structures Neck Neck: Yes normal visual inspection, Yes no lymphadenopathy, Yes trachea midline and Yes no JVD Thyroid: Thyroid normal Chest Chest palpation & inspection: normal inspection of the chest, normal palpation of entire chest wall and no tenderness Resp Other: Percussion note resonant ,breath sounds are normal on both sides, no wheezes rhonchi or crepitations are heard. Cardio Palpation: normal PMI Rate: regular rate Rhythm: regular rhythm Heart sounds: no gallops and Murmur heart sound present (Systolic murmur over the left sternal border is heard grade 2/6) Peripheral pulses: Peripheral pulses 2+ throughout GI Palpation (GI): Soft to palpation, nontender, No hepatosplenomegaly present, no masses and Other GI palpation findings present (Abdomen moderately obese and protuberant) Auscultation: normal bowel sounds Back/Spine/Pelvis Thoracic/Lumbar Spine: thoracic and lumbar spine normal to inspection Skin General skin exam: no rashes or lesions noted Neuro General: patient oriented x3 and no focal motor deficits Cranial nerves: Yes CN's II-XII intact bilaterally Extrem General: Yes normal to inspection, Yes no clubbing, cyanosis or edema and Yes no calf tenderness Psych Speech and movement: Normal speech and movement present Results Reviewed Results Reviewed: COMPLIANCE REPORT FOR THE LAST 30 NIGHTS IS REVIEWED. HE HAS USED 27/30 NIGHTS, 90%. AVERAGE USE IT PER NIGHT 5 HOURS 24 MINUTES. PRESSURE USED MOSTLY 15-16 CM. NO AIR LEAK IS REPORTED. RESIDUAL AHI 5 Assessment & Plan Assessment & Plan (1) Obesity (BMI 30-39.9): Comment: HE IS MODERATELY OBESE, TRYING TO LOSE WEIGHT. HAS LOST ABOUT 6 LB IN THE LAST 6 MONTHS. Code(s): E66.9 - Obesity, unspecified Category: Medical Plan: ENCOURAGED TO CUT DOWN THE CALORIES INTAKE, AND DO WALKING EVERY DAY. (2) [place] (obstructive sleep apnea): Comment: HE IS BEING TREATED FOR OBSTRUCTIVE SLEEP APNEA WITH CPAP, FULLFACE MASK, AND PRESSURE SETTING OF 6-16 CM. HE IS VERY COMPLIANT AND BENEFITING Code(s): G47.33 - Obstructive sleep apnea (adult) (pediatric) Category: Medical Plan: ADVISE THAT HE SHOULD USE THE CPAP EVERY NIGHT. IT WILL BE BENEFICIAL IF HE COULD USE AT LEAST FOR 6 HOURS PER NIGHT. WILL BE RECHECKED IN 6 MONTHS Coding Level of Care Code Est Pt Level 3 (77531) Diagnoses Obesity (BMI 30-39.9) E66.9 [place] (obstructive sleep apnea) G47.33
== END 2023-10-29 16:11 | disposition home or self-care (01) ==
PROVIDERS: PCP Family Medicine; Visit Provider Internal Medicine
DX: E66.9 Obesity, unspecified (principal); G47.33 Obstructive sleep apnea (adult) (pediatric)
CPT/HCPCS: 99213

== ENCOUNTER → 2023-10-29 15:33 | Outpatient (BNVA) | payer OTHER, SELFPAY | PROVIDERS: PCP Family Medicine; Visit Provider Internal Medicine ==

== ENCOUNTER → 2024-01-18 23:59 | Outpatient (BNV) | payer OTHER, SELFPAY ==
--- NOTE | 2024-01-27 19:35 | MHC.OFFVIS ---
Intake Visit Reasons: REmote device check- Medtronic Allergies No Known Allergies Allergy (Verified 10/29/23 16:10) [facility] Medical History Pacemaker ROSALINDA (obstructive sleep apnea) Obesity (BMI 30-39.9) Loud snoring Elevated cholesterol Murmur Surgical History History of third molar tooth extraction Hx of colonoscopy Family History Father No problems noted. Mother No problems noted. Brother No problems noted. Brother No problems noted. Daughter No problems noted. Sister Heart murmur Sister No problems noted. Sister No problems noted. 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 Overall normal device function. [id number] Cardiac Device Interrogation, pacemaker Procedure code (CPT) selection complete Assessment & Plan Assessment & Plan (1) Complete heart block: Code(s): I44.2 - Atrioventricular block, complete Category: Medical Plan x Coding Level of Care Code Procedure Only Diagnoses Complete heart block I44.2 CPT Codes Cardiac Device Check - Cardiac Device 12: [id number] Cardiac Device Interrogation, pacemaker ([id number])
== END ==
PROVIDERS: PCP Family Medicine; Visit Provider Internal Medicine
DX: I44.2 Atrioventricular block, complete (principal); Z95.0 Presence of cardiac pacemaker
CPT/HCPCS: 93294

== ENCOUNTER 2024-02-10 08:17 | Outpatient (AMB) | payer OTHER, SELFPAY ==
--- NOTE | 2024-02-10 08:25 | A.OFFPC_ITS ---
Vital Signs 02/10/24 08:26 Height 5 ft 6 in Weight 210 lb BMI 33.9 BP 108/72 Blood Pressure Location Lt brachial Position Sitting Respiration 14 Pulse 67 Pulse Source Pulse Oximeter Pulse Oximetry (%) 96 Oxygen Delivery Method Room Air Intake Visit Reasons: CPE Intake Note: Physical Pharmacy Customer Care Specialist Required: No Allergies No Known Allergies Allergy (Verified 02/10/24 08:26) Medication List - Last Reconciled 02/10/24 by Poornima Woods MD atorvastatin 20 mg PO DAILY@1800 90 days lisinopril 5 mg PO DAILY 90 days naproxen sodium (Aleve) 220 mg PO Q12H PRN tamsulosin 0.4 mg PO DAILY Tobacco use date assessed: 09/13/23 Dental Screening Dental Screen Date: 04/09/23 HPI HPI Comments History of Present Illness Details 59 year old male with a past medical his tory of hypertension, hyperlipidemia, CHB s/p PPM presenting for CPE CV: Follows with cardiology. On atorvastatin, lisinopril 5mg daily. Having some increased hesitancy poorer stream with urination. No pelvic pain Colon cancer screening q5 years last 04/2020 Due for Tdap Had shingles, will think about shot at pharmacy. Employer gives flu vaccine ROS see HPI PHYSICAL EXAM: GENERAL: Alert and oriented x 3. NAD EYES: EOMI. Anicteric. HENT: Moist mucous membranes. No scleral icterus. No cervical lymphadenopathy. LUNGS: Clear to auscultation bilaterally. CARDIOVASCULAR: Regular rate and rhythm. No murmur. No JVD. ABDOMEN: Soft, non-tender +bs EXTREMITIES: No edema. Non-tender. : Right testicular hydrocele. Non painful SKIN: No rashes or lesions. Warm. NEUROLOGIC: No focal neurological deficits. CN II-XII grossly intact PSYCHIATRIC: Cooperative. Appropriate mood and affect [facility] Medical History Pacemaker ROSALINDA (obstructive sleep apnea) Obesity (BMI 30-39.9) Loud snoring Elevated cholesterol Murmur Surgical History History of third molar tooth extraction Hx of colonoscopy Family History Father No problems noted. Mother No problems noted. Brother No problems noted. Brother No problems noted. Daughter No problems noted. Sister Heart murmur Sister No problems noted. Sister No problems noted. Other Substance abuse Social History Housing: House Alcohol intake: never Patient Tobacco Use Status: Former Tobacco user e-Cigarette/Vaping Use: Never Used Second Hand Smoke Exposure: Yes service: No Current occupational status: employed Current occupation: [employer] Current occupational exposures/hazards: No Cognitive needs: No Hearing needs: No Vision needs: Yes Questionnaire Thrive Questionnaire Date Thrive assessed: 06/22/22 SABA-7 AMB Questionnaire SABA-7 Date SABA - 7 assessed: 06/22/22 Source: Developed by Drs. Kaushik Miller, Elizabet Crystal, Jamari Martinez and colleagues, with an educational lina from [employer]. Physical exam (Primary Care) Vital Signs: Last Vital Signs Pulse 67 02/10/24 08:26 Resp 14 02/10/24 08:26 BP 108/72 02/10/24 08:26 Pulse Ox 96 02/10/24 08:26 Oxygen Delivery Method Room Air 02/10/24 08:26 BMI result Body Mass Index 33.9 Tobacco/Smoking Status: Tobacco use Status Tobacco use date assessed 09/13/23 02/10/24 08:29 Patient Tobacco Use Status Former Tobacco user 02/10/24 08:29 e-Cigarette/Vaping Use Never Used 02/10/24 08:29 Thrive Assessment: Date of Thrive Assessment Date Thrive assessed 06/22/22 02/10/24 08:29 Assessment and Plan Assessment & Plan (1) Complete heart block: Code(s): I44.2 - Atrioventricular block, complete Plan: s/p ppm. continue cardiology follow up (2) ROSALINDA (obstructive sleep apnea): Comment: HE IS BEING TREATED FOR OBSTRUCTIVE SLEEP APNEA WITH CPAP, FULLFACE MASK, AND PRESSURE SETTING OF 6-16 CM. HE IS VERY COMPLIANT AND BENEFITING Code(s): G47.33 - Obstructive sleep apnea (adult) (pediatric) Plan: compliant (3) Urinary hesitancy: Code(s): R39.11 - Hesitancy of micturition Plan: psa ordered. trial tamsulosin (4) Physical exam: Code(s): Z00.00 - Encounter for general adult medical examination without abnormal findings Plan: Preventive measures for age discussed Orders: Orders Complete Blood Count Auto Diff Today E78.00 - Pure hypercholesterolemia, unspecified, E87.5 - Hyperkalemia, R73.01 - Impaired fasting glucose, Z12.5 - Encounter for screening for malignant neoplasm of prostate Comprehensive Met. Panel Today E78.00 - Pure hypercholesterolemia, unspecified, E87.5 - Hyperkalemia, R73.01 - Impaired fasting glucose, Z12.5 - Encounter for screening for malignant neoplasm of prostate Prostate Specific Antigen Today E78.00 - Pure hypercholesterolemia, unspecified, E87.5 - Hyperkalemia, R73.01 - Impaired fasting glucose, Z12.5 - Encounter for screening for malignant neoplasm of prostate Lipid Panel Today E78.00 - Pure hypercholesterolemia, unspecified, E87.5 - Hyperkalemia, R73.01 - Impaired fasting glucose, Z12.5 - Encounter for screening for malignant neoplasm of prostate Hemoglobin A1c Today E78.00 - Pure hypercholesterolemia, unspecified, E87.5 - Hyperkalemia, R73.01 - Impaired fasting glucose, Z12.5 - Encounter for screening for malignant neoplasm of prostate Medications: New tamsulosin 0.4 mg PO DAILY 90 caps 3RF Refilled lisinopril 5 mg PO DAILY 90 days 90 tabs 3RF atorvastatin 20 mg PO DAILY@1800 90 days 90 tabs 3RF Coding Level of Care Code Est Pt Prev Care 40-64y(34920) Diagnoses Complete heart block I44.2 ROSALINDA (obstructive sleep apnea) G47.33 Urinary hesitancy R39.11 Physical exam Z00.00
[2024-02-10 08:26] VITALS: BP 108/72; PULSE 67; RESP 14; O2SAT 96; BMI 33.9
== END 2024-02-10 09:11 | disposition home or self-care (01) ==
PROVIDERS: PCP Family Medicine; Visit Provider Internal Medicine
DX: I44.2 Atrioventricular block, complete (principal); G47.33 Obstructive sleep apnea (adult) (pediatric); R39.11 Hesitancy of micturition; Z00.00 Encounter for general adult medical examination without abnormal findings
CPT/HCPCS: 99396

== ENCOUNTER → 2024-04-18 23:59 | Outpatient (BNV) | payer OTHER, SELFPAY ==
--- NOTE | 2024-04-29 09:43 | A.OFFVIS_ITS ---
Intake Visit Reasons: REmote device check- Medtronic Allergies No Known Allergies Allergy (Verified 02/10/24 08:26) [facility] Medical History (Updated 04/29/24 @ 09:44 by José Luis Olmstead MD) Pacemaker ROSALINDA (obstructive sleep apnea) Obesity (BMI 30-39.9) Loud snoring Elevated cholesterol Murmur Surgical History History of third molar tooth extraction Hx of colonoscopy Family History Father No problems noted. Mother No problems noted. Brother No problems noted. Brother No problems noted. Daughter No problems noted. Sister Heart murmur Sister No problems noted. Sister No problems noted. 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 Overall normal device function. [id number] Cardiac Device Interrogation, pacemaker Procedure code (CPT) selection complete Assessment & Plan Assessment & Plan (1) Pacemaker: Comment: Jun 29, 2022 Code(s): Z95.0 - Presence of cardiac pacemaker Category: Medical (2) Complete heart block: Code(s): I44.2 - Atrioventricular block, complete Category: Medical Plan x Coding Level of Care Code Procedure Only Diagnoses Pacemaker Z95.0 Complete heart block I44.2 CPT Codes Cardiac Device Check - Cardiac Device 12: [id number] Cardiac Device Interrogation, pacemaker ([id number])
== END ==
PROVIDERS: PCP Family Medicine; Visit Provider Internal Medicine
DX: I44.2 Atrioventricular block, complete (principal); Z95.0 Presence of cardiac pacemaker
CPT/HCPCS: 93294

== ENCOUNTER 2024-05-05 15:37 | Outpatient (AMB) | payer OTHER, SELFPAY ==
[2024-05-05 16:01] VITALS: BP 110/68; PULSE 65; O2SAT 95; BMI 34.5
--- NOTE | 2024-05-05 16:01 | A.OFFVIS_ITS ---
Vital Signs 05/05/24 16:01 Height 5 ft 6 in Weight 213 lb 13.574 oz BMI 34.5 BP 110/68 Blood Pressure Location Lt brachial Position Sitting Pulse 65 Pulse Source Pulse Oximeter Pulse Oximetry (%) 95 Oxygen Delivery Method Room Air Intake Visit Reasons: [place] Intake Note: pt is here for follow up and feels that possbily having a humidity issue. He is not using as much water as he was before. Allergies No Known Allergies Allergy (Verified 05/05/24 16:13) Medication List - Last Reconciled 05/05/24 by [place] MD atorvastatin 20 mg PO DAILY@1800 90 days lisinopril 5 mg PO DAILY 90 days naproxen sodium (Aleve) 220 mg PO Q12H PRN tamsulosin 0.4 mg PO DAILY Do you need a note to return to daycare/school/sports/work: No HPI HPI china: Details: THIS 59 YEARS OLD GENTLEMAN IS A KNOWN CASE OF OBSTRUCTIVE SLEEP APNEA AND IS GROSSLY OBESE. HE HAS BEEN USING CPAP REGULARLY EVERY NIGHT EXCEPT FOR SOME NIGHTS WHEN HE HAS COLD-LIKE SYMPTOMS. HE IS HERE FOR 6 MONTHS FOLLOW-UP. HE COMPLAINS THAT HIS HUMIDIFICATION SYSTEM IS NOT WORKING. HE IS WAKING UP WITH A DRY MOUTH. HE USES FULLFACE MASK. AND THERE IS NO ISSUE WITH THE MASK ITSELF. WHEN HE WAKES UP IN THE MORNING SOMETIMES THERE IS STILL SOME WATER IN THE HUMIDITY TANK. [facility] Medical History Pacemaker CHINA (obstructive sleep apnea) Obesity (BMI 30-39.9) Loud snoring Elevated cholesterol Murmur Surgical History History of third molar tooth extraction Hx of colonoscopy Family History Father No problems noted. Mother No problems noted. Brother No problems noted. Brother No problems noted. Daughter No problems noted. Sister Heart murmur Sister No problems noted. Sister No problems noted. Other Substance abuse Social History Housing: House Alcohol intake: never Patient Tobacco Use Status: Former Tobacco user e-Cigarette/Vaping Use: Never Used Second Hand Smoke Exposure: Yes service: No Current occupational status: employed Current occupation: [employer] Current occupational exposures/hazards: No Cognitive needs: No Hearing needs: No Vision needs: Yes Review of Systems Const All systems reviewed & are unremarkable except as noted in HPI and below Eyes Reports no additional complaints ENT Reports no additional complaints Card Denies chest pain, Denies irregular heart rhythm and Denies leg edema Resp Reports no additional complaints, Denies cough and Denies wheezing GI Reports no additional complaints Reports no additional complaints Musc Reports no additional complaints Skin/Breast Reports system reviewed and no additional complaints, except as documented Neuro Reports no additional complaints Psych Reports no additional complaints Endo Reports no additional complaints Aller/Immun Denies wheezing Physical Exam Vital Signs: Last Vital Signs Pulse 65 05/05/24 16:01 BP 110/68 05/05/24 16:01 Pulse Ox 95 05/05/24 16:01 Oxygen Delivery Method Room Air 05/05/24 16:01 BMI result Body Mass Index 34.5 Const General: healthy appearing (EXCEPT FOR BEING OVERWEIGHT), comfortable, no acute distress, alert and awake Orientation/consciousness: patient oriented x3 HEENT Head: Yes normal to inspection General nose exam: No nasal polyps present and No nasal discharge present Face and sinus: Yes sinuses nontender Mouth: oropharynx normal Throat: Yes posterior oropharynx normal Eyes General: appearance normal, both eyes and all related structures Neck Neck: Yes normal visual inspection, Yes no lymphadenopathy, Yes trachea midline and Yes no JVD Thyroid: Thyroid normal Chest Chest palpation & inspection: normal inspection of the chest, normal palpation of entire chest wall and no tenderness Resp Other: Percussion note resonant ,breath sounds are normal on both sides, no wheezes rhonchi or crepitations are heard. Cardio Palpation: normal PMI Rate: regular rate Rhythm: regular rhythm Heart sounds: no gallops and Murmur heart sound present (Systolic murmur over the left sternal border is heard grade 2/6) Peripheral pulses: Peripheral pulses 2+ throughout GI Palpation (GI): Soft to palpation, nontender, No hepatosplenomegaly present, no masses and Other GI palpation findings present (Abdomen moderately obese and protuberant) Auscultation: normal bowel sounds Back/Spine/Pelvis Thoracic/Lumbar Spine: thoracic and lumbar spine normal to inspection Skin General skin exam: no rashes or lesions noted Neuro General: patient oriented x3 and no focal motor deficits Cranial nerves: Yes CN's II-XII intact bilaterally Extrem General: Yes normal to inspection, Yes no clubbing, cyanosis or edema and Yes no calf tenderness Psych Speech and movement: Normal speech and movement present Results Reviewed Results Reviewed: COMPLIANCE REPORT FOR THE LAST 30 NIGHTS IS REVIEWED HE USED 22/30 NIGHTS,. 73% AVERAGE USE IT PER NIGHT 4 HOURS 37 MINUTE. THERE IS NO AIR LEAK, PRESSURE USED 14-15 CM WHICH IS WELL WITHIN THE RANGE. RESIDUAL AHI 4.9 Assessment & Plan Assessment & Plan (1) Obesity (BMI 30-39.9): Comment: HE IS MODERATELY OBESE, TRYING TO LOSE WEIGHT, BUT NOT ACTIVELY. TODAY HIS WEIGHT IS ABOUT 3 LB MORE THAN BEFORE. Code(s): E66.9 - Obesity, unspecified Category: Medical Plan: STRESSED THE IMPORTANCE OF LOSING WEIGHT, BY CONTROL OF DIET AND BY DOING INCREASED PHYSICAL ACTIVITY. (2) CHINA (obstructive sleep apnea): Comment: HE IS BEING TREATED FOR OBSTRUCTIVE SLEEP APNEA WITH CPAP, FULLFACE MASK, AND PRESSURE SETTING OF 6-16 CM. HE IS VERY COMPLIANT AND BENEFITING. HIS COMPLIANCE IS STILL SOMEWHAT SUBOPTIMAL. Code(s): G47.33 - Obstructive sleep apnea (adult) (pediatric) Category: Medical Plan: I STRESS THAT HE HAS TO USE IT EVERY NIGHT. THE HIS HUMIDITY LEVEL NEEDS TO BE SET LITTLE BIT HIGHER SO THAT HE CAN USE THE WHOLE OF WATER PER NIGHT. WE INSTRUCTED HIM TO TAKE HIS CPAP DEVICE TO THE REG[facility], AND HAVE THE HUMIDITY LEVEL SAT TO MEDIUM ARE HIGH. Coding Level of Care Code Est Pt Level 3 (55838) Diagnoses Obesity (BMI 30-39.9) E66.9 HCINA (obstructive sleep apnea) G47.33
== END 2024-05-05 16:22 | disposition home or self-care (01) ==
PROVIDERS: PCP Family Medicine; Visit Provider Internal Medicine
DX: E66.9 Obesity, unspecified (principal); G47.33 Obstructive sleep apnea (adult) (pediatric)
CPT/HCPCS: 99213

== ENCOUNTER 2024-06-29 12:31 | Outpatient (AMB) | payer OTHER, SELFPAY ==
[2024-06-29 12:53] VITALS: BP 118/60; PULSE 77; BMI 34.5
--- NOTE | 2024-06-29 12:53 | A.OFFVIS_ITS ---
Vital Signs 06/29/24 12:53 Height 5 ft 6 in Weight 213 lb 13.574 oz BMI 34.5 BP 118/60 Blood Pressure Location Lt brachial Position Sitting Pulse 77 Pulse Source Monitor Intake Visit Reasons: f/up w/ medtronic ck Allergies No Known Allergies Allergy (Verified 05/05/24 16:13) Medication List - Last Reconciled 06/29/24 by José Luis Olmstead MD atorvastatin 20 mg PO DAILY@1800 90 days lisinopril 5 mg PO DAILY 90 days naproxen sodium (Aleve) 220 mg PO Q12H PRN tamsulosin 0.4 mg PO DAILY HPI Comments Details: Kaushik returns for follow-up. He has a pacemaker in place for complete heart block. Overall, he is doing good. No cardiac symptoms whatsoever. [facility] Medical History Pacemaker ROSALINDA (obstructive sleep apnea) Obesity (BMI 30-39.9) Loud snoring Elevated cholesterol Murmur Surgical History History of third molar tooth extraction Hx of colonoscopy Family History Father No problems noted. Mother No problems noted. Brother No problems noted. Brother No problems noted. Daughter No problems noted. Sister Heart murmur Sister No problems noted. Sister No problems noted. Other Substance abuse Social History Housing: House Alcohol intake: never Patient Tobacco Use Status: Former Tobacco user e-Cigarette/Vaping Use: Never Used Second Hand Smoke Exposure: Yes service: No Current occupational status: employed Current occupation: [employer] Current occupational exposures/hazards: No Cognitive needs: No Hearing needs: No Vision needs: Yes Review of Systems Const Denies weakness ENT Denies dizziness Card Denies chest pain, Denies chest pain with activity, Denies syncope, Denies rapid heart rate, Denies pedal edema, Denies edema, Denies leg edema, Denies lightheadedness, Denies palpitations, Denies dyspnea, Denies dyspnea on exertion and Denies orthopnea Resp Denies cough, Denies dyspnea and Denies dyspnea on exertion GI Denies hematochezia and Denies change in stool character Musc Denies abnormal gait, Denies muscle cramps, Denies muscle weakness, Denies numbness, Denies radiating pain into limb and Denies tingling Neuro Denies abnormal gait, Denies dizziness, Denies syncope, Denies numbness, Denies tingling and Denies weakness Endo Denies palpitations Physical Exam Vital Signs: Last Vital Signs Pulse 77 06/29/24 12:53 BP 118/60 06/29/24 12:53 BMI result Body Mass Index 34.5 Const General: comfortable and no acute distress Orientation/consciousness: patient oriented x3 HEENT Other: Unremarkable Head: Yes normal to inspection Neck Neck: Yes normal visual inspection Chest Chest palpation & inspection: normal inspection of the chest Resp Auscultation: clear to auscultation bilaterally Cardio Palpation: normal PMI Heart sounds: S1 normal heart sound present, S2 normal heart sound present, no gallops, no murmurs and no rubs GI Palpation (GI): Soft to palpation Back/Spine/Pelvis Other: unremarkable Skin General skin exam: no rashes or lesions noted Neuro General: patient oriented x3 Extrem General: Yes normal to inspection Psych Mental Status: mental status grossly normal Office Procedures Cardiac Device Check Cardiac Device Check Details: Pacemaker interrogated today. Battery status more than 10 years. Normal lead parameters. Atrial paced 45%. Ventricular pacing > 99%. No significant arrhythmias. Overall, normal device function. [id number] Cardiac Device Check, pacemaker dual lead Procedure code (CPT) selection complete EKG Details: EKG with atrial sensed, ventricular paced rhythm at 77/Min. Possible LVH/repolarization. [id number], Complete Assessment & Plan Assessment & Plan (1) Complete heart block: Code(s): I44.2 - Atrioventricular block, complete Category: Medical Plan: Stable; status post pacemaker placement. Being followed remotely. He is pacer dependent. (2) ROSALINDA (obstructive sleep apnea): Code(s): G47.33 - Obstructive sleep apnea (adult) (pediatric) Category: Medical Plan: Continue CPAP. (3) Obesity (BMI 30-39.9): Code(s): E66.9 - Obesity, unspecified Category: Medical Plan: Weight is just about the same as before. Not clear if it will change. Coding Level of Care Code Est Pt Level 3 (16343) Diagnoses Complete heart block I44.2 ROSALINDA (obstructive sleep apnea) G47.33 Obesity (BMI 30-39.9) E66.9 CPT Codes Cardiac Device Check - Cardiac Device 2: [id number] Cardiac Device Check, pacemaker dual lead ([id number]) EKG - CPT: 45019-Lhegadhgfsylqhbyx, Complete ([id number])
== END 2024-06-29 13:13 | disposition home or self-care (01) ==
PROVIDERS: PCP Family Medicine; Visit Provider Internal Medicine
DX: I44.2 Atrioventricular block, complete (principal); G47.33 Obstructive sleep apnea (adult) (pediatric); E66.9 Obesity, unspecified
CPT/HCPCS: 93010; 93280; 99213

== ENCOUNTER → 2024-06-29 12:31 | Outpatient (BNVA) | payer OTHER, SELFPAY | PROVIDERS: PCP Family Medicine; Visit Provider Internal Medicine | DX: I44.2 Atrioventricular block, complete (principal); G47.33 Obstructive sleep apnea (adult) (pediatric); E66.9 Obesity, unspecified; Z68.34 Body mass index [BMI] 34.0-34.9, adult; Z45.018 Encounter for adjustment and management of other part of cardiac pacemaker | CPT/HCPCS: 93005; 93280 ==

== ENCOUNTER → 2024-07-18 23:59 | Outpatient (BNV) | payer OTHER, SELFPAY ==
--- NOTE | 2024-07-28 08:57 | A.OFFVIS_ITS ---
Intake Visit Reasons: Remote device check-Medtronic Allergies No Known Allergies Allergy (Verified 05/05/24 16:13) [facility] Medical History Pacemaker ROSALINDA (obstructive sleep apnea) Obesity (BMI 30-39.9) Loud snoring Elevated cholesterol Murmur Surgical History History of third molar tooth extraction Hx of colonoscopy Family History Father No problems noted. Mother No problems noted. Brother No problems noted. Brother No problems noted. Daughter No problems noted. Sister Heart murmur Sister No problems noted. Sister No problems noted. 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 Overall normal device function. [id number] Cardiac Device Interrogation, pacemaker Procedure code (CPT) selection complete Assessment & Plan Assessment & Plan (1) Pacemaker: Comment: Jun 29, 2022 Code(s): Z95.0 - Presence of cardiac pacemaker Category: Medical (2) Complete heart block: Code(s): I44.2 - Atrioventricular block, complete Category: Medical Plan x Coding Level of Care Code Procedure Only Diagnoses Pacemaker Z95.0 Complete heart block I44.2 CPT Codes Cardiac Device Check - Cardiac Device 12: [id number] Cardiac Device Interrogation, pacemaker ([id number])
== END ==
PROVIDERS: PCP Family Medicine; Visit Provider Internal Medicine
DX: I44.2 Atrioventricular block, complete (principal); Z95.0 Presence of cardiac pacemaker
CPT/HCPCS: 93294

== ENCOUNTER 2024-09-07 14:25 | Outpatient (AMB) | payer OTHER, SELFPAY ==
--- NOTE | 2024-09-07 14:56 | MHC.PC.OV ---
Vital Signs 09/07/24 14:57 Height 5 ft 6 in Weight 210 lb 2 oz BMI 33.9 BP 120/64 Blood Pressure Location Rt brachial Position Sitting Respiration 16 Pulse 79 Pulse Source Pulse Oximeter Pulse Oximetry (%) 94 Oxygen Delivery Method Room Air Intake Visit Reasons: SITA from Dr. Gruber to Dr. 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 On atorvastatin, lisinopril 5mg daily. BP well controlled. Lost 3 pounds BPH: Doing well on flomax ROSALINDA: follows with pulm/sleep. recent dry socket couldnt wear for two weeks Colon cancer screening q5 years last 04/2020 Tdap 2023 ROS see HPI PHYSICAL EXAM: GENERAL: Alert and oriented x 3. NAD EYES: EOMI. Anicteric. HENT: Moist mucous membranes. No scleral icterus. No cervical lymphadenopathy. LUNGS: Clear to auscultation bilaterally. CARDIOVASCULAR: Regular rate and rhythm. No murmur. No JVD. ABDOMEN: Soft, non-tender +bs EXTREMITIES: No edema. Non-tender. SKIN: No rashes or lesions. Warm. NEUROLOGIC: No focal neurological deficits. CN II-XII grossly intact PSYCHIATRIC: Cooperative. Appropriate mood and affect [facility] Medical History Pacemaker ROSALINDA (obstructive sleep apnea) Obesity (BMI 30-39.9) Loud snoring Elevated cholesterol Murmur Surgical History History of third molar tooth extraction Hx of colonoscopy Family History Father No problems noted. Mother No problems noted. Brother No problems noted. Brother No problems noted. Daughter No problems noted. Sister Heart murmur Sister No problems noted. Sister No problems noted. Other Substance abuse Social History Housing: House Alcohol intake: never Patient Tobacco Use Status: Former Tobacco user e-Cigarette/Vaping Use: Never Used Second Hand Smoke Exposure: Yes Substance Use Type: Former Substance User and Marijuana service: No Current occupational status: employed Current occupation: [employer] Current occupational exposures/hazards: No Cognitive needs: No Hearing needs: No Vision needs: Yes Questionnaire Thrive Questionnaire Date Thrive assessed: 06/22/22 SABA-7 AMB Questionnaire SABA-7 Date SABA - 7 assessed: 06/22/22 Source: Developed by Drs. Kaushik Miller, Elizabet Crystal, Jamari Martinez and colleagues, with an educational lina from [employer]. Physical exam (Primary Care) Vital Signs: Last Vital Signs Pulse 79 09/07/24 14:57 Resp 16 09/07/24 14:57 BP 120/64 09/07/24 14:57 Pulse Ox 94 09/07/24 14:57 Oxygen Delivery Method Room Air 09/07/24 14:57 BMI result Body Mass Index 33.9 Tobacco/Smoking Status: Tobacco use Status Tobacco use date assessed 09/07/24 09/07/24 15:00 Patient Tobacco Use Status Former Tobacco user 09/07/24 15:00 e-Cigarette/Vaping Use Never Used 09/07/24 15:00 Thrive Assessment: Date of Thrive Assessment Date Thrive assessed 06/22/22 09/07/24 15:00 Coding Level of Care Code Est Pt Level 4 (52266) Complex EM visit Add On G2211 Diagnoses Essential hypertension I10 ROSALINDA (obstructive sleep apnea) G47.33 Hypercholesterolemia E78.00 Assessment & Plan Assessment & Plan (1) Essential hypertension: Code(s): I10 - Essential (primary) hypertension Category: Medical (2) ROSALINDA (obstructive sleep apnea): Code(s): G47.33 - Obstructive sleep apnea (adult) (pediatric) Category: Medical (3) Hypercholesterolemia: Code(s): E78.00 - Pure hypercholesterolemia, unspecified Category: Medical Plan 59 y/o for follow up BP well controlled. Efforts at weight loss ROSALINDA-stable on cpap BPH-stable on flomax Overdue for labs which are ordered Orders: Orders Lipid Panel Today E78.00 - Pure hypercholesterolemia, unspecified, I10 - Essential (primary) hypertension, R73.01 - Impaired fasting glucose, Z12.5 - Encounter for screening for malignant neoplasm of prostate, Z13.0 - Encounter for screening for diseases of the blood and blood-forming organs and certain disorders involving the immune mechanism TSH reflex Free T4 Today E78.00 - Pure hypercholesterolemia, unspecified, I10 - Essential (primary) hypertension, R73.01 - Impaired fasting glucose, Z12.5 - Encounter for screening for malignant neoplasm of prostate, Z13.0 - Encounter for screening for diseases of the blood and blood-forming organs and certain disorders involving the immune mechanism Hemoglobin A1c Today E78.00 - Pure hypercholesterolemia, unspecified, I10 - Essential (primary) hypertension, R73.01 - Impaired fasting glucose, Z12.5 - Encounter for screening for malignant neoplasm of prostate, Z13.0 - Encounter for screening for diseases of the blood and blood-forming organs and certain disorders involving the immune mechanism Complete Blood Count Auto Diff Today E78.00 - Pure hypercholesterolemia, unspecified, I10 - Essential (primary) hypertension, R73.01 - Impaired fasting glucose, Z12.5 - Encounter for screening for malignant neoplasm of prostate, Z13.0 - Encounter for screening for diseases of the blood and blood-forming organs and certain disorders involving the immune mechanism Comprehensive Met. Panel Today E78.00 - Pure hypercholesterolemia, unspecified, I10 - Essential (primary) hypertension, R73.01 - Impaired fasting glucose, Z12.5 - Encounter for screening for malignant neoplasm of prostate, Z13.0 - Encounter for screening for diseases of the blood and blood-forming organs and certain disorders involving the immune mechanism Prostate Specific Antigen Today E78.00 - Pure hypercholesterolemia, unspecified, I10 - Essential (primary) hypertension, R73.01 - Impaired fasting glucose, Z12.5 - Encounter for screening for malignant neoplasm of prostate, Z13.0 - Encounter for screening for diseases of the blood and blood-forming organs and certain disorders involving the immune mechanism Referrals Gastroenterology Referral Z12.11 - Encounter for screening for malignant neoplasm of colon Medications: New naproxen 250 mg PO BID PRN 180 tabs 3RF pain
[2024-09-07 14:57] VITALS: BP 120/64; PULSE 79; RESP 16; O2SAT 94; BMI 33.9
== END 2024-09-07 15:34 | disposition home or self-care (01) ==
LOC: HO.HMCFM 14:26
PROVIDERS: PCP Family Medicine; Visit Provider Internal Medicine
DX: I10 Essential (primary) hypertension (principal); G47.33 Obstructive sleep apnea (adult) (pediatric); E78.00 Pure hypercholesterolemia, unspecified

== ENCOUNTER 2024-09-12 08:53 | Outpatient (REF) | payer OTHER, SELFPAY ==
[2024-09-12 09:34] LABS: MANUAL DIFF FLAG NO
[2024-09-12 10:16] LABS: Basophils Percent Auto 0.3 % (0-2); Eosinophils Absolute Auto 0.1 X10*3/uL (0.0-0.4); Hematocrit 44.1 % (42.0-52.0); Hemoglobin 15.3 g/dl (14.0-18.0); Imm Gran Abs Auto 0.02 X10*3/uL (0.00-0.03); Imm Gran Pct Auto 0.3 % (0.0-0.4); Lymphocytes Absolute Auto 2.4 X10*3/uL (1.2-4.9); Lymphocytes Percent Auto 41.8 % (20-40); Mean Corpuscular HGB Conc 34.7 g/dl (31.0-36.0); Mean Corpuscular Hemoglobin 31.7 pg (27.0-33.0); Mean Corpuscular Volume 91.5 fL (80.0-98.0); Mean Platelet Volume 9.6 fL (9.4-12.4); Monocytes Absolute Auto 0.5 X10*3/uL (0.1-1.2); Monocytes Percent Auto 7.8 % (2-11); Neutrophils Absolute Auto 2.8 x10*3/uL (2.0-8.3); Neutrophils Percent Auto 48.8 % (45-73); Platelet Count 293 X10*3/uL (160-400); Red Blood Count 4.82 X10*6/uL (4.60-5.80); White Blood Count 5.8 X10*3/uL (4.8-10.8)
[2024-09-12 10:24] LABS: Estimated Average Glucose 117 mg/dL; Hemoglobin A1C 154.5468 umol/L; Hemoglobin A1c % 5.7 % (<6.0)
[2024-09-12 10:51] LABS: Alanine Aminotransferase 35 U/L (0-40); Albumin Level 3.8 g/dL (3.5-5.0); Alkaline Phosphatase 65 U/L (39-117); Anion Gap 10 (12-20); Aspartate Amino Transferase 45 U/L (5-37); Bilirubin Total 0.5 mg/dL (0.0-1.0); Blood Urea Nitrogen 16 mg/dL (9-16); Calcium 9.5 mg/dL (8.4-10.2); Carbon Dioxide 25 mmol/L (22-29); Chloride 110 mmol/L (96-108); Cholesterol 116 mg/dL (<200); Estimated Glomerular Filt Rate > 60; Glucose Random 110 mg/dL (60-115); HDL Cholesterol 42 mg/dL (>40); LDL Cholesterol Calculated 59 mg/dL (<100); Potassium 3.8 mmol/L (3.3-5.1); Sodium 141 mmol/L (135-145); Total Protein 6.6 g/dL (6.5-8.0); Triglycerides 78 mg/dL (<150)
[2024-09-12 11:00] LABS: Prostate Specific Antigen 0.58 ng/mL (<0.05-4.0)
[2024-09-12 11:09] LABS: TSH reflex Free T4 0.94 uIU/mL (0.32-4.0)
== END 2024-09-12 08:54 | disposition home or self-care (01) ==
LOC: HO.LAB 08:53
PROVIDERS: PCP Internal Medicine; Visit Provider Internal Medicine
DX: R73.01 Impaired fasting glucose (principal); E87.5 Hyperkalemia; Z12.5 Encounter for screening for malignant neoplasm of prostate; E78.00 Pure hypercholesterolemia, unspecified; I10 Essential (primary) hypertension; Z13.0 Encounter for screening for diseases of the blood and blood-forming organs and certain disorders involving the immune mechanism
CPT/HCPCS: 36415; 80053; 80061; 83036; 84153; 84443; 85025

== ENCOUNTER → 2024-10-17 23:59 | Outpatient (BNV) | payer OTHER, SELFPAY ==
--- NOTE | 2024-10-22 20:59 | MHC.OFFVIS ---
Intake Visit Reasons: Remote device check-Medtronic Allergies No Known Allergies Allergy (Verified 05/05/24 16:13) [facility] Medical History Pacemaker ROSALINDA (obstructive sleep apnea) Obesity (BMI 30-39.9) Loud snoring Elevated cholesterol Murmur Surgical History History of third molar tooth extraction Hx of colonoscopy Family History Father No problems noted. Mother No problems noted. Brother No problems noted. Brother No problems noted. Daughter No problems noted. Sister Heart murmur Sister No problems noted. Sister No problems noted. Other Substance abuse Social History Housing: House Alcohol intake: never Patient Tobacco Use Status: Former Tobacco user e-Cigarette/Vaping Use: Never Used Second Hand Smoke Exposure: Yes Substance Use Type: Former Substance User and Marijuana service: No Current occupational status: employed Current occupation: [employer] 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 Overall normal device function. [id number] Cardiac Device Interrogation, pacemaker Procedure code (CPT) selection complete Assessment & Plan Assessment & Plan (1) Pacemaker: Comment: Jun 29, 2022 Code(s): Z95.0 - Presence of cardiac pacemaker Category: Medical (2) Complete heart block: Code(s): I44.2 - Atrioventricular block, complete Category: Medical Plan x Coding Level of Care Code Procedure Only Diagnoses Pacemaker Z95.0 Complete heart block I44.2 CPT Codes Cardiac Device Check - Cardiac Device 12: [id number] Cardiac Device Interrogation, pacemaker ([id number])
== END ==
PROVIDERS: PCP Internal Medicine; Visit Provider Internal Medicine
DX: I44.2 Atrioventricular block, complete (principal); Z95.0 Presence of cardiac pacemaker
CPT/HCPCS: 93294

== ENCOUNTER 2024-11-03 15:31 | Outpatient (AMB) | payer OTHER, SELFPAY ==
[2024-11-03 15:43] VITALS: BP 110/70; PULSE 64; O2SAT 96; BMI 33.6
--- NOTE | 2024-11-03 15:43 | A.OFFVIS_ITS ---
Vital Signs 11/03/24 15:43 Height 5 ft 6 in Weight 208 lb 5.389 oz BMI 33.6 BP 110/70 Blood Pressure Location Lt brachial Position Sitting Pulse 64 Pulse Source Pulse Oximeter Pulse Oximetry (%) 96 Oxygen Delivery Method Room Air Intake Visit Reasons: china Intake Note: pt is here for follow up of CHINA. 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 6 months for follow-up He uses CPAP with a fullface mask . He say is that lately he has not been able to use every night due to nasal congestion, . And cold symptoms He also does not use for more than 4 hours because he usually wakes up in the middle of the night to go to the bathroom and after that he can not sleep with the mask on. He also remains overweight because during the winter he did not have much outdoor activity. Now he has started walking almost 3 miles every day. 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 [facility] Medical History Pacemaker CHINA (obstructive sleep apnea) Obesity (BMI 30-39.9) Loud snoring Elevated cholesterol Murmur Surgical History History of third molar tooth extraction Hx of colonoscopy Family History Father No problems noted. Mother No problems noted. Brother No problems noted. Brother No problems noted. Daughter No problems noted. Sister Heart murmur Sister No problems noted. Sister No problems noted. Other Substance abuse Social History Housing: House Alcohol intake: never Patient Tobacco Use Status: Former Tobacco user e-Cigarette/Vaping Use: Never Used Second Hand Smoke Exposure: Yes Substance Use Type: Former Substance User and Marijuana service: No Current occupational status: employed Current occupation: [employer] Current occupational exposures/hazards: No Cognitive needs: No Hearing needs: No Vision needs: Yes Review of Systems Const All systems reviewed & are unremarkable except as noted in HPI and below Eyes Reports no additional complaints ENT Reports no additional complaints Card Denies chest pain, Denies irregular heart rhythm and Denies leg edema Resp Reports no additional complaints, Denies cough and Denies wheezing GI Reports no additional complaints Reports no additional complaints Musc Reports no additional complaints Skin/Breast Reports system reviewed and no additional complaints, except as documented Neuro Reports no additional complaints Psych Reports no additional complaints Endo Reports no additional complaints Aller/Immun Denies wheezing Physical Exam Vital Signs: Last Vital Signs Pulse 64 11/03/24 15:43 BP 110/70 11/03/24 15:43 Pulse Ox 96 11/03/24 15:43 Oxygen Delivery Method Room Air 11/03/24 15:43 BMI result Body Mass Index 33.6 Const General: healthy appearing (EXCEPT FOR BEING OVERWEIGHT), comfortable, no acute distress, alert and awake Orientation/consciousness: patient oriented x3 HEENT Head: Yes normal to inspection General nose exam: No nasal polyps present and No nasal discharge present Face and sinus: Yes sinuses nontender Mouth: oropharynx normal Throat: Yes posterior oropharynx normal Eyes General: appearance normal, both eyes and all related structures Neck Neck: Yes normal visual inspection, Yes no lymphadenopathy, Yes trachea midline and Yes no JVD Thyroid: Thyroid normal Chest Chest palpation & inspection: normal inspection of the chest, normal palpation of entire chest wall and no tenderness Resp Other: Percussion note resonant ,breath sounds are normal on both sides, no wheezes r honchi or crepitations are heard. Cardio Palpation: normal PMI Rate: regular rate Rhythm: regular rhythm Heart sounds: no gallops and Murmur heart sound present (Systolic murmur over the left sternal border is heard grade 2/6) Peripheral pulses: Peripheral pulses 2+ throughout GI Palpation (GI): Soft to palpation, nontender, No hepatosplenomegaly present, no masses and Other GI palpation findings present (Abdomen moderately obese and protuberant) Auscultation: normal bowel sounds Back/Spine/Pelvis Thoracic/Lumbar Spine: thoracic and lumbar spine normal to inspection Skin General skin exam: no rashes or lesions noted Neuro General: patient oriented x3 and no focal motor deficits Cranial nerves: Yes CN's II-XII intact bilaterally Extrem General: Yes normal to inspection, Yes no clubbing, cyanosis or edema and Yes no calf tenderness Psych Speech and movement: Normal speech and movement present Results Reviewed Results Reviewed: Compliance report for the last 30 nights is reviewed. He used 17/30 nights, 57%. Average usage is 4 hours 33 minutes. Missed using the CPAP quite a few nights because of nasal congestion. Pressure used is 14-15 cm. Residual AHI is still 7.0 mostly obstructive and some central apneas.. Assessment & Plan Assessment & Plan (1) CHINA (obstructive sleep apnea): Comment: Patient is a confirmed case of sleep apnea. He does use CPAP but his compliance is still suboptimal. Code(s): G47.33 - Obstructive sleep apnea (adult) (pediatric) Category: Medical Plan: Had a good talk with him and encouraged him to use it every night. Also stressed that he has to use more than 4 hours per night. (2) Obesity (BMI 30-39.9): Comment: He is moderately obese. Finds it hard to lose weight. Code(s): E66.9 - Obesity, unspecified Category: Medical Plan: I talked to him about the importance of losing weight. .He has to cut down the calories intake He should continue to walk about 3 miles every day . Coding Level of Care Code Est Pt Level 3 (65510) Diagnoses CHINA (obstructive sleep apnea) G47.33 Obesity (BMI 30-39.9) E66.9
== END 2024-11-03 16:10 | disposition home or self-care (01) ==
LOC: HO.HPS 15:32
PROVIDERS: PCP Family Medicine; Visit Provider Internal Medicine
DX: G47.33 Obstructive sleep apnea (adult) (pediatric) (principal); E66.9 Obesity, unspecified
CPT/HCPCS: 99213

== ENCOUNTER → 2025-01-16 23:59 | Outpatient (BNV) | payer OTHER, SELFPAY ==
--- NOTE | 2025-01-23 16:56 | MHC.OFFVIS ---
Intake Visit Reasons: Remote device check-Medtronic Allergies No Known Allergies Allergy (Verified 11/03/24 16:09) [facility] Medical History Pacemaker ROSALINDA (obstructive sleep apnea) Obesity (BMI 30-39.9) Loud snoring Elevated cholesterol Murmur Surgical History History of third molar tooth extraction Hx of colonoscopy Family History Father No problems noted. Mother No problems noted. Brother No problems noted. Brother No problems noted. Daughter No problems noted. Sister Heart murmur Sister No problems noted. Sister No problems noted. Other Substance abuse Social History Housing: House Alcohol intake: never Patient Tobacco Use Status: Former Tobacco user e-Cigarette/Vaping Use: Never Used Second Hand Smoke Exposure: Yes Substance Use Type: Former Substance User and Marijuana service: No Current occupational status: employed Current occupation: [email or web address] Current occupational exposures/hazards: No Cognitive needs: No Hearing needs: No Vision needs: Yes Office Procedures Cardiac Device Check Cardiac Device Check Details: Date of service- 01/16/2025 ; Battery life >9 years; normal lead parameters; AP 48%; IMPORT/EXPORT SPECIALIST 100%; no significant arrhythmias. Overall normal device function. [id number] Cardiac Device Interrogation, pacemaker Procedure code (CPT) selection complete Assessment & Plan Assessment & Plan (1) Pacemaker: Comment: Jun 29, 2022 Code(s): Z95.0 - Presence of cardiac pacemaker Category: Medical (2) Complete heart block: Code(s): I44.2 - Atrioventricular block, complete Category: Medical Plan x Coding Level of Care Code Procedure Only Diagnoses Pacemaker Z95.0 Complete heart block I44.2 CPT Codes Cardiac Device Check - Cardiac Device 12: [id number] Cardiac Device Interrogation, pacemaker ([id number])
== END ==
PROVIDERS: PCP Family Medicine; Visit Provider Internal Medicine
DX: I44.2 Atrioventricular block, complete (principal); Z95.0 Presence of cardiac pacemaker
CPT/HCPCS: 93294

== ENCOUNTER 2025-01-28 13:40 | Outpatient (AMB) | payer OTHER, SELFPAY ==
[2025-01-28 13:46] VITALS: BP 120/70; PULSE 71; BMI 33.2
--- NOTE | 2025-01-28 13:46 | A.OFFVIS_ITS ---
Vital Signs 01/28/25 13:46 Height 5 ft 6 in Weight 205 lb 7.533 oz BMI 33.2 BP 120/70 Blood Pressure Location Lt brachial Position Sitting Pulse 71 Intake Visit Reasons: colo screen l/s 2019 Intake Note: Kaushik presents to in office visit for colonoscopy screening CC: Denies any GI concerns today. Patient states he is here for 5 years repeat colonoscopy. Personal Banking Advisor Required: No Allergies No Known Allergies Allergy (Verified 01/28/25 13:56) HPI HPI colo screen l/s 2020: Details: 59-year-old male here for preprocedural meeting to discuss a screening colonoscopy. He is referred by Poornima Woods. PMX ROSALINDA Obesity Pacemaker-heart block Hypertension High cholesterol Family history of colon cancer - father around 70 * SURGICAL HISTORY Pacemaker Molar extraction , 4 teeth extracted Colonoscopy-2009, her son NEGATIVE STUDY * ALLERGIES: NKDA * [employer] LABS: Laboratory Tests 09/12/24 09:32 WBC 5.8 Hgb 15.3 Hct 44.1 Plt Count 293 Estimated GFR > 60 Total Bilirubin 0.5 AST 45 H ALT 35 Alkaline Phosphatase 65 TSH 0.94 TODAY'S VISIT His last scope was in 2019 and was normal. No bowel or upper GI problems. He has a pacemaker and ROSALINDA. NO anes or sed problems. NO ID problems FHX crc father age 70 PFSH Medical History Syncope and collapse ROSALINDA (obstructive sleep apnea) Screening, deficiency anemia, iron Screening for prostate cancer Screening for colon cancer Elevated cholesterol Dyspnea on exertion SOB (shortness of breath) on exertion Abnormal EKG Abnormal heart rhythm Elevated blood pressure reading Adult general medical exam Pacemaker Obesity (BMI 30-39.9) Loud snoring Murmur Surgical History (Updated 01/28/25 @ 14:02 by PERLA Solano) History of third molar tooth extraction Hx of colonoscopy Family History Father Colon cancer, Onset Age: 70 Mother No problems noted. Brother No problems noted. Brother No problems noted. Daughter No problems noted. Sister Heart murmur Sister No problems noted. Sister No problems noted. Other Substance abuse Social History (Reviewed 01/28/25 @ 14:01 by Tamiko Henriquez [facility] [place]) Housing: House Alcohol intake: never Patient Tobacco Use Status: Former Tobacco user e-Cigarette/Vaping Use: Never Used Second Hand Smoke Exposure: Yes Substance Use Type: Former Substance User and Marijuana service: No Current occupational status: employed Current occupation: [employer] Current occupational exposures/hazards: No Cognitive needs: No Hearing needs: No Vision needs: Yes Review of Systems Const Denies fatigue, Denies fever(s), Denies night sweats, Denies poor appetite and Denies weight loss Eyes Details: Glasses ENT Reports Normal hearing present, Denies dental pain, Denies dysphagia, Denies hearing loss, Denies mouth pain, Denies odynophagia, Denies throat swelling, Denies tongue swelling and Reports other (Dentition adequate) Card Reports no additional complaints Resp Reports no additional complaints GI Details: Denies abdominal pain, Denies melena, Denies bloating, Denies hematochezia, Denies constipation, Denies GI cramping, Denies dysphagia, Denies excessive flatus, Denies early satiety, Denies heartburn, Denies diarrhea, Denies nausea, Denies odynophagia, Denies vomiting and Denies hematemesis Skin/Breast Denies pruritus, Denies lesions, Denies rash and Denies jaundice Neuro Reports Normal hearing present and Denies Abnormal speech present Endo Denies fatigue Aller/Immun Denies throat swelling and Denies tongue swelling Physical Exam Vital Signs: Last Vital Signs Pulse 71 01/28/25 13:46 BP 120/70 01/28/25 13:46 BMI result Body Mass Index 33.2 Const General: cooperative, no acute distress, well developed and well groomed Nutritional Appearance: well nourished and obese Orientation/consciousness: oriented to person, oriented to place and oriented to time Limitations: No language barrier HEENT Head: Yes normocephalic and Yes atraumatic Eyes General: appearance normal, both eyes and all related structures Pupils: Equal, round and reactive pupils present Neck Neck: Yes normal visual inspection and Yes no lymphadenopathy Thyroid: Thyroid normal Chest Other: Pacemaker palpated left anterior chest wall Resp Effort & Inspection: normal respiratory effort and able to speak in complete sentences Auscultation: clear to auscultation bilaterally Cardio Rate: regular rate Rhythm: regular rhythm Heart sounds: Normal, physiologic split S2 sound present Peripheral pulses: radial pulses present and posterior tibial pulses present GI Inspection: No distended, No Abdominal panniculus present and Yes obesity Palpation (GI): Soft to palpation, nontender, no guarding, not rigid and No hepatosplenomegaly present Percussion: Yes normal to percussion Auscultation: normal bowel sounds Rectal Exam - Male: Yes deferred Skin General skin exam: no rashes or lesions noted, turgor normal, skin not dry, no jaundice, No spider nevi and no striae Rashes: no rashes Nails: normal Neuro General: oriented to person, oriented to place and oriented to time Cranial nerves: Yes Equal, round and reactive pupils present and Yes Normal hearing present Speech: No Abnormal speech present Extrem General: Yes normal to inspection, No clubbing, No cyanosis and No edema Psych Appearance: grossly normal and well kempt Mental Status: mental status grossly normal Speech and movement: Normal speech and movement present Affect: normal affect Attitude: cooperative Thought process: Normal thought process present and not confabulating Thought content: Normal thought content present Insight: Good insight present (Psych) Judgement: Good judgement present (Psych) Assessment & Plan Assessment & Plan (1) Pre-op examination: Code(s): Z01.818 - Encounter for other preprocedural examination Category: Medical (2) ROSALINDA (obstructive sleep apnea): Comment: Patient is a confirmed case of sleep apnea. He does use CPAP but his compliance is still suboptimal. Code(s): G47.33 - Obstructive sleep apnea (adult) (pediatric) Category: Medical (3) Family history of colon cancer: Code(s): Z80.0 - Family history of malignant neoplasm of digestive organs Category: Medical (4) Pacemaker: Comment: Jun 29, 2022 Code(s): Z95.0 - Presence of cardiac pacemaker Category: Medical Plan His last scope was in 2019 and was normal. No bowel or upper GI problems. He has a pacemaker and ROSALINDA. NO anes or sed problems. NO ID problems FHX crc father age 70 Orders: Orders Colonoscopy - GI Use Only Today Z80.0 - Family history of malignant neoplasm of digestive organs Medications: New peg 3350-electrolytes 236-22.74-6.74 -5.86 gram (Golytely) until fecal effluent is clear; do not exceed a total volume of 2,000 mL 240 mL PO Q10M 4,000 mL 0RF 1 day Z12.11 - Encounter for screening for malignant neoplasm of colon bisacodyl (Dulcolax (bisacodyl)) 10 mg (2 x 5 mg) PO BEDTIME 4 tabs 0RF 2 days Coding Level of Care Code New Pt Level 3 (12029) Diagnoses Pre-op examination Z01.818 ROSALINDA (obstructive sleep apnea) G47.33 Family history of colon cancer Z80.0 Pacemaker Z95.0
== END 2025-01-28 14:27 | disposition home or self-care (01) ==
LOC: HO.HGI 13:40
PROVIDERS: PCP Family Medicine; Visit Provider Nurse Practitioner
DX: Z01.818 Encounter for other preprocedural examination (principal); Z12.11 Encounter for screening for malignant neoplasm of colon; Z80.0 Family history of malignant neoplasm of digestive organs; G47.33 Obstructive sleep apnea (adult) (pediatric); Z95.0 Presence of cardiac pacemaker
CPT/HCPCS: S0285

== ENCOUNTER 2025-03-15 11:00 | Outpatient (AMB) | payer OTHER, SELFPAY ==
--- NOTE | 2025-03-15 11:06 | MHC.PC.OV ---
Vital Signs 03/15/25 11:28 Height 5 ft 6 in Weight 205 lb 6 oz BMI 33.1 BP 134/78 Blood Pressure Location Lt brachial Position Sitting Respiration 14 Pulse 65 Pulse Source Pulse Oximeter Pulse Oximetry (%) 96 Oxygen Delivery Method Room Air Intake Visit Reasons: CPE Intake Note: Physical Ui Software Developer Required: No Allergies No Known Allergies Allergy (Verified 03/15/25 11:28) Tobacco use date assessed: 03/15/25 Dental Screening Dental Screen Date: 03/15/25 Did you have a dental visit in the last 12 months?: Yes Did you have a dental problem in the last 6 months where you did not have access to dental care?: No Was dental information given to patient?: Patient has dentist HPI HPI Comments History of Present Illness Details 60 year old male with a past medical history of hypertension, hyperlipidemia, CHB s/p PPM, ROSALINDA presenting for a physical exam CV: Follows with cardiology at [facility]. On atorvastatin, lisinopril 5mg daily. 134/78 Lost 8 pounds since June BPH: Doing well on flomax ROSALINDA: follows with pulm/sleep. Colon cancer screening q5 years last 04/2020-he saw GI at [facility] and he is being scheduled for colonosopy In between eye doctors-he plans to make an appointment in the plans Tdap 2023 ROS see HPI PHYSICAL EXAM: GENERAL: Alert and oriented x 3. NAD EYES: EOMI. Anicteric. HENT: Moist mucous membranes. No scleral icterus. No cervical lymphadenopathy. LUNGS: Clear to auscultation bilaterally. CARDIOVASCULAR: Regular rate and rhythm. No murmur. No JVD. ABDOMEN: Soft, non-tender +bs EXTREMITIES: No edema. Non-tender. SKIN: No rashes or lesions. Warm. NEUROLOGIC: No focal neurological deficits. CN II-XII grossly intact PSYCHIATRIC: Cooperative. Appropriate mood and affect [facility] Medical History (Updated 03/15/25 @ 13:19 by Poornima Woods MD) Syncope and collapse ROSALINDA (obstructive sleep apnea) Screening, deficiency anemia, iron Screening for prostate cancer Screening for colon cancer Elevated cholesterol Dyspnea on exertion SOB (shortness of breath) on exertion Abnormal EKG Abnormal heart rhythm Elevated blood pressure reading Adult general medical exam Pacemaker Obesity (BMI 30-39.9) Loud snoring Murmur Surgical History (Updated 01/28/25 @ 14:02 by PERLA Solano) History of third molar tooth extraction Hx of colonoscopy Family History Father Colon cancer, Onset Age: 70 Mother No problems noted. Brother No problems noted. Brother No problems noted. Daughter No problems noted. Sister Heart murmur Sister No problems noted. Sister No problems noted. Other Substance abuse Social History Housing: House Alcohol intake: never Patient Tobacco Use Status: Former Tobacco user e-Cigarette/Vaping Use: Never Used Second Hand Smoke Exposure: Yes Substance Use Type: Former Substance User and Marijuana service: No Current occupational status: employed Current occupation: [employer] Current occupational exposures/hazards: No Cognitive needs: No Hearing needs: No Vision needs: Yes Questionnaire PHQ-9 Over the last 2 weeks, how often have you been bothered by any of the following problems? 1. Little interest or pleasure in doing things: not at all 2. Feeling down, depressed, or hopeless: not at all 3. Trouble falling or staying asleep, or sleeping too much: not at all 4. Feeling tired or having little energy: not at all 5. Poor appetite or overeating: not at all 6. Feeling bad about yourself - or that you are a failure or have let yourself or your family down: not at all 7. Trouble concentrating on things, such as reading the newspaper or watching television: not at all 8. Moving or speaking so slowly that other people could have noticed. Or the opposite - being so fidgety or restless that you have been moving around a lot more than usual: not at all 9. Thoughts that you would be better off or of hurting yourself in some way: not at all Total score: 0 Depression Screening Interpretation: Negative Depression Screening Done: Yes 62380 - PHQ-9 Billing: Yes Source: Developed by Drs. Kaushik Miller, Elizabet Crystal, Jamari Martinez and colleagues, with an educational lina from [employer]. Thrive Questionnaire Date Thrive assessed: 03/15/25 I am a: Patient Within the past 12 months, did the food you bought not last and you didn't have the money to get more?: Never true Within the past 12 months, did you worry whether your food would run out before you got money to buy more?: Never true Do you have trouble paying for medicines?: No Do you have trouble getting transportation to medical appointments?: No Do you have trouble paying your heating and electricity bill?: No Do you have trouble taking care of your child, family member or friend?: No Do you have trouble with day-to-day activities such as bathing, preparing meals, shopping, managing finances, etc.?: No Are you currently unemployed and looking for a job?: No Are you interested in more education?: No Currently or been in a relationship where the following occur: No concerns reported THRIVE Score: 0 AUDIT C Alcohol Use Questionnaire (AUDIT-C) 1. How often do you have a drink containing alcohol?: Never 3. How often do you have six or more drinks on one occasion?: Never Total Score: 0 SABA-7 AMB Questionnaire SABA-7 Date SABA - 7 assessed: 03/15/25 Feeling nervous, anxious, or on edge: 0 = Not at all Not being able to stop or control worryin = Not at all Worrying too much about different things: 0 = Not at all Trouble relaxin = Not at all Being so restless that it is hard to sit still: 0 = Not at all Becoming easily annoyed or irritable: 0 = Not at all Feeling afraid as if something awful might happen: 0 = Not at all Total SABA-7 score (0-4 normal; 5-9 mild; 10-14 moderate; 15-21 severe): 0 Source: Developed by Drs. Kaushik Miller, Elizabet Crystal, Jamari Martinez and colleagues, with an educational lina from [employer]. SABA-7 Assessment Billing SABA-7 Assessment Tool: SABA-7 Assessment 70907 Physical exam (Primary Care) Tobacco/Smoking Status: Tobacco use Status Tobacco use date assessed 09/07/24 03/15/25 11:07 Patient Tobacco Use Status Former Tobacco user 03/15/25 11:07 e-Cigarette/Vaping Use Never Used 03/15/25 11:07 Depression Screening Interpretation: Negative Thrive Assessment: Date of Thrive Assessment Date Thrive assessed 06/22/22 03/15/25 11:07 Currently or been in a relationship where the following occur: No concerns reported Coding Level of Care Code Est Pt Prev Care 40-64y(73177) Diagnoses Essential hypertension I10 Hypercholesterolemia E78.00 ROSALINDA (obstructive sleep apnea) G47.33 Additional Codes SABA-7 Assessment Billing - SABA-7 Assessment Tool: SABA-7 Assessment 27346 ([id number]) PHQ-9 - 36506 - PHQ-9 Billing: Yes ([id number]) Assessment & Plan Assessment & Plan (1) Essential hypertension: Code(s): I10 - Essential (primary) hypertension Category: Medical (2) Hypercholesterolemia: Code(s): E78.00 - Pure hypercholesterolemia, unspecified Category: Medical (3) ROSALINDA (obstructive sleep apnea): Comment: on cpap Code(s): G47.33 - Obstructive sleep apnea (adult) (pediatric) Category: Medical Plan CPE Interval history reviewed BPH is stable on flomax HTN-controlled on current medications. Encouraged further weight loss Reach out to cardiology regarding one episode of shortness of breath-PPM Medications: Refilled lisinopril 5 mg PO DAILY 90 tabs 1RF 90 days tamsulosin 0.4 mg PO DAILY 90 caps 3RF
[2025-03-15 11:28] VITALS: BP 134/78; PULSE 65; RESP 14; O2SAT 96; BMI 33.1
== END 2025-03-15 11:54 | disposition home or self-care (01) ==
LOC: HO.HMCFM 11:00
PROVIDERS: PCP Family Medicine; Visit Provider Internal Medicine
DX: I10 Essential (primary) hypertension (principal); E78.00 Pure hypercholesterolemia, unspecified; G47.33 Obstructive sleep apnea (adult) (pediatric); Z00.00 Encounter for general adult medical examination without abnormal findings

== ENCOUNTER → 2025-03-15 11:00 | Outpatient (BNVA) | payer OTHER, SELFPAY | PROVIDERS: PCP Family Medicine; Visit Provider Internal Medicine | DX: Z00.00 Encounter for general adult medical examination without abnormal findings (principal); I10 Essential (primary) hypertension; E78.00 Pure hypercholesterolemia, unspecified; G47.33 Obstructive sleep apnea (adult) (pediatric); N40.0 Benign prostatic hyperplasia without lower urinary tract symptoms; Z79.899 Other long term (current) drug therapy; Z13.31 Encounter for screening for depression; Z13.39 Encounter for screening examination for other mental health and behavioral disorders | CPT/HCPCS: 96127 ==

== ENCOUNTER → 2025-04-16 23:59 | Outpatient (BNV) | payer OTHER, SELFPAY ==
--- NOTE | 2025-04-21 11:11 | MHC.OFFVIS ---
Intake Visit Reasons: Remote device check-[employer] Allergies No Known Allergies Allergy (Verified 03/15/25 11:28) [facility] Medical History (Updated 03/15/25 @ 13:19 by Poornima Woods MD) Syncope and collapse ROSALINDA (obstructive sleep apnea) Screening, deficiency anemia, iron Screening for prostate cancer Screening for colon cancer Elevated cholesterol Dyspnea on exertion SOB (shortness of breath) on exertion Abnormal EKG Abnormal heart rhythm Elevated blood pressure reading Adult general medical exam Pacemaker Obesity (BMI 30-39.9) Loud snoring Murmur Surgical History History of third molar tooth extraction Hx of colonoscopy Family History Father Colon cancer, Onset Age: 70 Mother No problems noted. Brother No problems noted. Brother No problems noted. Daughter No problems noted. Sister Heart murmur Sister No problems noted. Sister No problems noted. Other Substance abuse Social History (Updated 03/15/25 @ 11:34 by Yamini Hernandez CMA) Housing: House Alcohol intake: never Patient Tobacco Use Status: Former Tobacco user e-Cigarette/Vaping Use: Never Used Second Hand Smoke Exposure: Yes Substance Use Type: Former Substance User and Marijuana service: No Current occupational status: employed Current occupation: [email or web address] Current occupational exposures/hazards: No Cognitive needs: No Hearing needs: No Vision needs: Yes Office Procedures Cardiac Device Check Cardiac Device Check Details: Date of service- 04/16/2025 ; Battery life >9 years; normal lead parameters; AP 48%; TYPE CASTER 100%; very brief NSVT; otherwise no significant arrhythmias. Overall normal device function. [id number] Cardiac Device Interrogation, pacemaker Procedure code (CPT) selection complete Assessment & Plan Assessment & Plan (1) Pacemaker: Comment: Jun 29, 2022 Code(s): Z95.0 - Presence of cardiac pacemaker Category: Medical (2) Complete heart block: Code(s): I44.2 - Atrioventricular block, complete Category: Medical Plan x Coding Level of Care Code Procedure Only Diagnoses Pacemaker Z95.0 Complete heart block I44.2 CPT Codes Cardiac Device Check - Cardiac Device 12: [id number] Cardiac Device Interrogation, pacemaker ([id number])
== END ==
PROVIDERS: PCP Family Medicine; Visit Provider Internal Medicine
DX: I44.2 Atrioventricular block, complete (principal); Z95.0 Presence of cardiac pacemaker
CPT/HCPCS: 93294

== ENCOUNTER → 2025-05-09 15:46 | Outpatient (BNV) | payer OTHER, SELFPAY | PROVIDERS: PCP Family Medicine; Visit Provider Internal Medicine | DX: I44.2 Atrioventricular block, complete (principal); Z95.0 Presence of cardiac pacemaker | CPT/HCPCS: 93294 ==